=== PATIENT | female | born 1980 | race Caucasian/White ===

== ENCOUNTER 2019-04-16 15:45 | Emergency (ER) | payer MEDICARE, MEDICAID, SELFPAY ==
[2019-04-16 15:47] VITALS: BP 122/77; PULSE 75; RESP 16; TEMP 36.6; O2SAT 97; BMI 20.7
--- NOTE | 2019-04-16 16:05 | W.ED.ALLEREA ---
HPI - Allergic Reaction General: Chief complaint: Allergic Reaction Stated complaint: Allergic reaction, patient was treated at 1425 with epinephrine by EMS for an allergic reaction to exposure to animal dander. Patient was having tightness in her throat and has an extensive history of allergen to beef and pork. Patient reports her spouse just went to work on a farm and was cleaning out a barn today and was covered in dust and she went and had them when he got home and shortly after exposure she started having shortness of breath and difficulty breathing. Patient states she is feeling fine now and has no difficulty. Patient is out of epinephrine at home. Time Seen by Provider: 04/16/19 15:55 History of Present Illness: Associated symptoms: Reports hoarseness Review of Systems General: Reports: 10 or more systems reviewed and unremarkable except in HPI and below ENMT: Reports: hoarseness Card: Denies: chest pain Resp: Denies: shortness of breath Skin/Breast: Reports: rash Vic/Lymph: Denies: easy bruising PFSH ED PFSH: Statuses (acute, chronic, etc) shown below reflect problem list status as previously entered and may not be historically accurate Social History Smoking and tobacco status: former smoker Physical Exam Const: COMMON NORMALS: no apparent distress and oriented x3 HENMT: COMMON NORMALS: normocephalic HEAD & SCALP: normocephalic Eye: COMMON NORMALS: PERRL and EOMs intact bilaterally PUPIL: Yes PERRL Neck/C-Spine: COMMON NORMALS: full ROM and no lymphadenopathy Chest: COMMONS NORMALS: inspection of chest normal Resp: COMMON NORMALS: normal respiratory effort and clear to auscultation bilaterally AUSCULTATION: clear to auscultation bilaterally Cardio: COMMON NORMALS: regular rate and regular rhythm RATE: regular rate RHYTHM: regular rhythm GI: COMMON NORMALS: normal to inspection, nondistended, normoactive bowel sounds Back/Pelvis: COMMON NORMALS: thoracic and lumbar spine normal to inspection Extremity: COMMON NORMALS: normal to inspection and no pedal edema Neuro: COMMON NORMALS: oriented x3 Skin: COMMON NORMALS: skin turgor normal GENERAL SKIN EXAM: elasticity normal and turgor normal RASHES: rashes noted (anterior chest) Course Vital Signs: Vital signs: Vital Signs Temperature 97.9 F 04/16/19 15:47 Pulse Rate 75 04/16/19 15:47 Respiratory Rate 16 04/16/19 15:47 Blood Pressure 122/77 04/16/19 15:47 Pulse Oximetry 97 04/16/19 15:47 MDM - Allergic Reaction MDM Narrative: Medical decision making narrative: patient comes in today for concerns of allergic reaction. Patient was given epinephrine about an hour and a half prior to arrival to ER. Patient reported at that time she had symptoms of tightness in her throat. Since receiving the epi patient feels fine and has no further symptoms. 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 Exam notes normal respirations. Skin is warm and dry. Abdomen soft nontender. Patient does have a light rash to the anterior chest wall. Vital signs are stable. Differential diagnosis includes anaphylaxis, seasonal allergies, allergic rhinitis, anxiety. Patient returned to baseline we'll continue to monitor. Patient will be written prescription for epinephrine for home therapy as needed. Patient agreed to treatment plan and need for further evaluation and care. Discharge Plan Discharge Patient Disposition: Home, Self-Care Clinical Impression: Allergic reaction Qualifiers: Encounter type: initial encounter Qualified Code(s): T78.40XA - Allergy, unspecified, initial encounter Condition: Stable Prescriptions: New epinephrine 0.3 mg/0.3 mL auto-injector 0.3 mg IM Q20M PRN (Reason: anaphylaxis) 2 Days Qty: 2 RF: 2 Discharge Orders: Discharge Order (Routine); Ordered 04/16/19 Ordered By: Prosper De La Rosa Referrals: Jojo Eubanks DO [Primary Care Provider] - Discharge Diet: Advance as tolerated Discharge Activity: Resume usual activity Activity Restrictions/Additional Instructions: Avoid exposure to allergens Healthy diet and activity Follow-up with primary care for further treatment Return to ER as needed for difficulty breathing or new concerns Coding Level of Care Code ED Machined Parts Metal Sprayer for Kerry Kline Exam Problem Focused
--- NOTE | 2019-04-16 16:16 | ED_ITS ---
HPI - Allergic Reaction General: Chief complaint: Allergic Reaction Stated complaint: Allergic reaction, patient was treated at 1425 with epinephrine by EMS for an allergic reaction to exposure to animal dander. Patient was having tightness in her throat and has an extensive history of allergen to beef and pork. Patient reports her spouse just went to work on a farm and was cleaning out a barn today and was covered in dust and she went and had them when he got home and shortly after exposure she started having shortness of breath and difficulty breathing. Patient states she is feeling fine now and has no difficulty. Patient is out of epinephrine at home. Time Seen by Provider: 04/16/19 15:55 PFSH ED PFSH: Statuses (acute, chronic, etc) shown below reflect problem list status as previously entered and may not be historically accurate Social History Smoking and tobacco status: former smoker Course Vital Signs: Vital signs: Vital Signs Temperature 97.9 F 04/16/19 15:47 Pulse Rate 75 04/16/19 15:47 Respiratory Rate 16 04/16/19 15:47 Blood Pressure 122/77 04/16/19 15:47 Pulse Oximetry 97 04/16/19 15:47 Discharge Plan Discharge Patient Disposition: Home, Self-Care Clinical Impression: Allergic reaction Qualifiers: Encounter type: initial encounter Qualified Code(s): T78.40XA - Allergy, unspecified, initial encounter Condition: Stable Prescriptions: New epinephrine 0.3 mg/0.3 mL auto-injector 0.3 mg IM Q20M PRN (Reason: anaphylaxis) 2 Days Qty: 2 RF: 2 Discharge Orders: Discharge Order (Routine); Ordered 04/16/19 Ordered By: Prosper De La Rosa Referrals: Jojo Eubanks DO [Primary Care Provider] - Discharge Diet: Advance as tolerated Discharge Activity: Resume usual activity Activity Restrictions/Additional Instructions: Avoid exposure to allergens Healthy diet and activity Follow-up with primary care for further treatment Return to ER as needed for difficulty breathing or new concerns Coding Level of Care Code ED Networking Specialist for Kerry Kline
[2019-04-16 16:41] VITALS: BP 114/70; PULSE 72; RESP 20; O2SAT 98
== END 2019-04-16 16:34 | disposition home or self-care (01) ==
PROVIDERS: Emergency Provider Emergency Medicine; Family Provider Family Medicine; PCP Family Medicine
DX: T78.40XA Allergy, unspecified, initial encounter (principal); X58.XXXA Exposure to other specified factors, initial encounter; Z87.891 Personal history of nicotine dependence
CPT/HCPCS: 99281

== ENCOUNTER 2019-04-23 11:08 | Outpatient (CLI) | payer MEDICARE, MEDICAID, SELFPAY ==
--- NOTE | 2019-04-23 11:23 | XR_ITS ---
WS: [id number] CERVICAL SPINE TECHNIQUE: 3 views of the cervical spine CLINICAL INFORMATION: CERVICAL PAIN COMPARISON: 015 FINDINGS: Straightening of the normal cervical lordosis. Normal C1-C2 articulation. Normal dens. No acute fract ures. Normal prevertebral soft tissues. Prior partial resection of the right first rib XR/XR cervical spine 3V* 50415 IMPRESSION: 1. Straightening of the normal cervical lordosis. No acute fractures. 2. Disc space heights and vertebral body heights are well preserved. 3. Normal C1-C2 articulation.
== END 2019-04-23 11:09 | disposition home or self-care (01) ==
LOC: RAD 11:16
PROVIDERS: Family Provider Family Medicine; PCP Family Medicine; Visit Provider Registered Nurse
DX: M54.2 Cervicalgia (principal)
CPT/HCPCS: 72040

== ENCOUNTER 2019-05-21 19:42 | Emergency (ER) | payer MEDICARE, MEDICAID, SELFPAY ==
[2019-05-21 19:45] VITALS: BP 110/46; PULSE 63; RESP 16; TEMP 36.4; O2SAT 99; BMI 20.7
--- NOTE | 2019-05-21 19:53 | W.ED.ALLEREA ---
HPI - Allergic Reaction General: Chief complaint: Skin/Abscess/Foreign Body Stated complaint: MILD ALLERGIC REACTION Time Seen by Provider: 05/21/19 19:44 Source: patient and EMS Mode of arrival: EMS Limitations: no limitations History of Present Illness: HPI narrative: Patient is a 38-year-old female who presents to ED today with complaints of a possible allergic reaction. Patient reports countless allergies and states she thinks her dogs got into something and then came into the house and rubbed on her. She complains of skin itchiness. She is allergic to Benadryl. Patient believes when she has had previous reactions they have treated her successfully with Solu-Medrol. She denies difficulty breathing, tongue/throat swelling, or difficulty swallowing. MD complaint: allergic reaction Onset (ago): minute(s) Associated symptoms: Reports no associated symptoms; Deny nausea or vomiting Severity: mild Treatment prior to arrival: none Review of Systems Const: Denies: fever or chills Eyes: Denies: change in vision or blurry vision ENMT: Denies: throat pain, painful swallowing, swelling of lips/tongue or dry mouth Card: Denies: chest pain, palpitations, edema, lightheadedness, syncope or pre-syncope Resp: Denies: shortness of breath, productive cough, non-productive cough, wheezing or stridor GI: Denies: nausea or vomiting Skin/Breast: Reports: rash and itching; Denies: redness Neuro: Denies: headache PFSH ED PFSH: Statuses (acute, chronic, etc) shown below reflect problem list status as previously entered and may not be historically accurate Social History Smoking and tobacco status: former smoker Physical Exam Const: COMMON NORMALS: no apparent distress, oriented x3, no limitations and alert ORIENTATION/CONSCIOUSNESS: Yes oriented to person, Yes oriented to place and Yes oriented to time HENMT: COMMON NORMALS: normocephalic, head/scalp atraumatic, hearing grossly normal bilaterally, EAC's normal, TM's normal bilaterally, external nose normal, nasal mucous membranes and turbinates normal, moist oral mucous membranes and oropharynx normal HEAD & SCALP: normocephalic and atraumatic FACE & SINUS: normal facial exam NOSE: external nose normal and nasal mucous membranes and turbinates normal EXTERNAL AUDITORY CANAL: EAC's normal TYMPANIC MEMBRANE: TM's normal bilaterally MOUTH: oral and palatal mucosa normal and tongue normal THROAT: posterior oropharynx normal, tonsils normal and uvula midline Eye: COMMON NORMALS: PERRL and EOMs intact bilaterally PUPIL: Yes PERRL Neck/C-Spine: COMMON NORMALS: no lymphadenopathy Resp: COMMON NORMALS: normal respiratory effort and clear to auscultation bilaterally AUSCULTATION: clear to auscultation bilaterally Cardio: COMMON NORMALS: regular rate and regular rhythm RATE: regular rate RHYTHM: regular rhythm Neuro: COMMON NORMALS: oriented x3, moves all extremities, no focal motor deficits and no sensory deficits noted SENSORIUM/ORIENTATION: Yes alert, Yes oriented to person, Yes oriented to place and Yes oriented to time Skin: OTHER: Patient has chronic excoriated appearing papules to bilateral upper and lower extremities and back. I do not visualize any acute rash/hives. She is actively scratching all over in the room during my exam. Course Vital Signs: Vital signs: Vital Signs Temperature 97.5 F L 05/21/19 19:45 Pulse Rate 63 05/21/19 19:45 Respiratory Rate 16 05/21/19 19:45 Blood Pressure 110/46 05/21/19 19:45 Pulse Oximetry 99 05/21/19 19:45 MDM - Allergic Reaction MDM Narrative: Medical decision making narrative: upon re-evaluation patient is asymptomatic and feels back to her baseline Discharge Plan Discharge Patient Disposition: Home, Self-Care Clinical Impression: Allergic reaction Qualifiers: Encounter type: initial encounter Qualified Code(s): T78.40XA - Allergy, unspecified, initial encounter Condition: Stable Prescriptions: No Action epinephrine 0.3 mg/0.3 mL auto-injector 0.3 mg IM Q20M PRN (Reason: anaphylaxis) 2 Days Qty: 2 RF: 2 Discharge Orders: Discharge Order (Routine); Ordered 05/21/19 Ordered By: Yocasta Barber Referrals: Jojo Eubanks DO [Primary Care Provider] - Discharge Diet: Usual diet Discharge Activity: Increase activity as tolerated Coding Level of Care Code ED Online Project Manager for Chg Fwd Exam Problem Focused
[2019-05-21 21:09] VITALS: BP 114/68; PULSE 70; RESP 16; O2SAT 96
== END 2019-05-21 21:10 | disposition home or self-care (01) ==
PROVIDERS: Emergency Provider Physician Assistant; Family Provider Family Medicine; PCP Family Medicine
DX: T78.40XA Allergy, unspecified, initial encounter (principal); X58.XXXA Exposure to other specified factors, initial encounter; Z87.891 Personal history of nicotine dependence
CPT/HCPCS: 96374; 96375; 99282; J2930

== ENCOUNTER 2020-01-05 16:35 | Emergency (ER) | payer MEDICARE, MEDICAID, SELFPAY ==
--- NOTE | 2020-01-05 16:37 | XR_ITS ---
WS: [id number] Right foot, 01/05/2020 Clinical Data: pain Comparison: None. Findings: No fractures or dislocations are seen. No bone destruction or erosion is noted. The joint spaces and soft tissues are normal. XR/XR foot RT min 3V* [id number] Impression: Negative right foot.
[2020-01-05 16:50] VITALS: BP 127/82; PULSE 94; RESP 16; TEMP 36.4; O2SAT 97; BMI 21.1
--- NOTE | 2020-01-05 17:01 | ED_ITS ---
HPI - Extremity Problem General: Chief complaint: Extremity Injury, Lower Stated complaint: R foot injury/pain Time Seen by Provider: 01/05/20 16:41 History of Present Illness: HPI Narrative: Patient is a 39-year-old female who comes to the ED with right ankle injury. Patient said that just prior to arrival she was stepping up to get into her truck and twisted her right ankle. She says she felt a crunch. She now has pain in her right ankle and foot that is a 10 out of 10. Denies falling or having any head trauma. Associated symptoms: Deny chest pain, fever(s) or rash Review of Systems Const: Denies: fever(s), chills or fatigue Eyes: Denies: change in vision or eye discomfort ENMT: Denies: throat pain, odynophagia, nasal discharge or nasal congestion Card: Denies: chest pain, palpitations, edema, swelling of feet/ankles, dyspnea on exertion or orthopnea Resp: Denies: dyspnea, productive cough or non-productive cough GI: Denies: abdominal pain, nausea, vomiting, diarrhea, constipation or hematochezia : Denies: flank pain, dysuria or hematuria Musc: Reports: extremity pain (right foot and ankle); Denies: neck pain, back pain or extremity swelling Skin/Breast: Denies: rash or new lesions Neuro: Denies: headache(s), numbness in extremities or weakness in extremities PFSH ED PFSH: Social History Smoking and tobacco status: former smoker Alcohol intake: never Substance/Drug Use: current Substance/Drug use frequency: daily Substance/Drug use type: Marijuana Current gender identity: Female Physical Exam Const: COMMON NORMALS: no acute distress, patient oriented x3, healthy appearing and alert GENERAL APPEARANCE: cooperative and comfortable HENMT: COMMON NORMALS: normocephalic HEAD & SCALP: normocephalic MOUTH: Normal oral and palatal mucosa present THROAT: posterior oropharynx normal and uvula midline Eye: COMMON NORMALS: Equal, round and reactive pupils present PUPIL: Yes Equal, round and reactive pupils present Neck/C-Spine: COMMON NORMALS: supple GENERAL: Yes normal visual inspection Resp: COMMON NORMALS: normal respiratory effort, No retractions, No use of accessory muscles and clear to auscultation bilaterally AUSCULTATION: clear to auscultation bilaterally Cardio: COMMON NORMALS: regular rate, regular rhythm, S1 normal heart sound present, S2 normal heart sound present, No gallops present (Cardio), No clicks present (Cardio), No murmurs present (Cardio) and Peripheral pulses 2+ thro ughout RATE: regular rate RHYTHM: regular rhythm HEART SOUNDS: S1 normal heart sound present and S2 normal heart sound present PERIPHERAL PULSES: Peripheral pulses 2+ throughout GI: COMMON NORMALS: Normal to inspection, nondistended, normoactive bowel sounds present, Soft to palpation, non-tender and no masses PALPATION: Yes Soft to palpation : COMMON NORMALS: Yes no CVA tenderness BLADDER/KIDNEY EXAM: Yes no CVA tenderness Back/Pelvis: COMMON NORMALS: no CVA tenderness Extremity: COMMON NORMALS: normal to inspection NARRATIVE EXTREMITY EXAM: Patient right ankle and foot looked completely normal and had no visible deformity, edema or ecchymosis. Mild tenderness to palpation of the lateral aspect of ankle. Posterior tib pulse 2+ and cap refill normal. GENERAL: Yes normal exam except as noted Neuro: COMMON NORMALS: patient oriented x3 and moves all extremities SENSORIUM/ORIENTATION: Yes alert Skin: COMMON NORMALS: no rashes or lesions noted GENERAL SKIN EXAM: no rashes or lesions noted and dry skin Course Vital Signs: Vital signs: Vital Signs Temperature 97.6 F 01/05/20 16:50 Pulse Rate 94 01/05/20 16:50 Respiratory Rate 16 01/05/20 16:50 Blood Pressure 127/82 01/05/20 16:50 Pulse Oximetry 97 01/05/20 16:50 MDM - Extremity (Nontraumatic) MDM Narrative: Medical decision making narrative: Patient is a 39-year-old female comes to the ED with right ankle and foot pain. Patient says she twisted her right ankle and foot when stepping into her truck. Physical exam was unremarkable and patient had no edema, ecchymosis or visible deformity seen. Mild tenderness to palpation on lateral aspect of right ankle. Right foot and right ankle x-ray showed no acute fractures or findings. Patient was given crutches and told to use to help ambulate for the next couple days to allow for ankle and foot to heal., Rest ice and elevate right foot to help with symptoms. She was found with a prescription for ketorolac for pain. Return to ED precautions given. Follow-up with PCP in 7 to 10 days. Patient understood and agree with plan. Imaging Data^: Xray Ortho: Attestation: I personally reviewed and interpreted this imaging study as follows: My impression: Right ankle and right foot x-ray showed no acute fractures or findings. Discharge Plan Discharge Patient Disposition: Home Clinical Impression: Ankle sprain Qualifiers: Encounter type: initial encounter Involved ligament of ankle: anterior talofibular ligament Laterality: right Qualified Code(s): S93.491A - Sprain of other ligament of right ankle, initial encounter Condition: Stable Prescriptions: New ketorolac 10 mg tablet 10 mg PO Q6H PRN (Reason: pain) 5 Days Qty: 20 RF: 0 No Action pantoprazole 40 mg tablet,delayed release (DR/EC) 40 mg PO BID Qty: 60 RF: 6 epinephrine 0.3 mg/0.3 mL auto-injector 0.3 mg IM Q20M PRN (Reason: anaphylaxis) 2 Days Qty: 2 RF: 2 cetirizine 10 mg tablet 10 mg PO BID RF: 0 chlorzoxazone 500 mg tablet 500 mg PO QID PRN (Reason: UNKNOWN) RF: 0 tramadol 50 mg tablet 50 - 100 mg PO Q6H PRN (Reason: Pain) RF: 0 metoprolol tartrate 25 mg tablet 25 mg PO BID RF: 0 Discharge Orders: Discharge Order (Routine); Ordered 01/05/20 Ordered By: Sudhakar Frederick Referrals: Jojo Eubanks DO [Primary Care Provider] - Discharge Diet: Regular Discharge Activity: Increase activity as tolerated Patient Instructions: Ankle Sprain (ED) Activity Restrictions/Additional Instructions: Follow-up with medical provider as directed in 7-10 days. Take medications as prescribed. Use crutches to help ambulate for the next 2 to 3 days. Then increase activity and weightbearing as tolerated. Return to the ER or your medical provider if condition worsens. Please read and understand discharge instructions. If any questions, please ask. Coding Level of Care Code ED Fast Food Delivery Driver for Kerry Fwsteve Exam Comprehensive
--- NOTE | 2020-01-05 17:10 | XR_ITS ---
WS: [id number] Right ankle, 01/05/2020 Clinical Data: ankle injury Comparison: None. Findings: No fractures or dislocations are seen. The ankle mortise is normal. The talus and calcaneus are unrem arkable. No soft tissue swelling over the medial or lateral malleolus is seen. XR/XR ankle RT min 3V* [id number] Impression: Negative right ankle.
[2020-01-05] MEDS: ketorolac 60 mg/2 mL INJ IM (17:23)
[2020-01-05 17:40] VITALS: RESP 18
== END 2020-01-05 17:40 | disposition home or self-care (01) ==
PROVIDERS: Emergency Provider Physician Assistant; PCP Family Medicine
DX: S93.491A Sprain of other ligament of right ankle, initial encounter (principal); X50.1XXA Overexertion from prolonged static or awkward postures, initial encounter; Z87.891 Personal history of nicotine dependence
CPT/HCPCS: 12345; 73610; 73630; 96372; 99281; 99283; E0114; J1885

== ENCOUNTER 2020-08-16 22:24 | Emergency (ER) | payer MEDICARE, SELFPAY ==
[2020-08-16 22:29] VITALS: BP 112/65; PULSE 73; RESP 17; TEMP 36.9; O2SAT 98; BMI 20.5
--- NOTE | 2020-08-16 23:00 | ED_ITS ---
HPI - General Adult General: Chief complaint: General Medical Stated complaint: GOITER CAUSING PROBLEMS Time Seen by Provider: 08/16/20 22:55 History of Present Illness: HPI narrative: Patient is a 39-year-old female comes to the ED with neck swelling. Patient has a past medical history of alpha gal syndrome. Patient was seen by her PCP within the last couple days and some labs were checked and patient had elevated thyroid levels and a palpable enlarged thyroid on right side. PCP then is getting patient scheduled for a ultrasound of the thyroid likely tomorrow. Patient comes into the ED tonight due to increased pain around neck after she ate and choked on some berries this evening. The pain is in the right side of her neck and is going up towards her ear. She says she took some tramadol at home for pain but that did not work. Patient denies any airway obstruction. Patient says she is allergic to a lot of food and medications due to her alpha gal and says that she cannot have any contrast dye. For pain, patient says Toradol works well for her and she is not allergic to it. Associated symptoms: Deny chest pain, dyspnea, headache(s), nausea, rash, palpitations or vomiting Review of Systems Const: Denies: fever(s), chills or fatigue Eyes: Denies: change in vision or eye discomfort ENMT: Denies: throat pain, odynophagia, nasal discharge or nasal congestion Card: Denies: chest pain, palpitations, edema, swelling of feet/ankles, dyspnea on exertion or orthopnea Resp: Denies: dyspnea, productive cough or non-productive cough GI: Denies: abdominal pain, nausea, vomiting, diarrhea, constipation or hem atochezia : Denies: flank pain, dysuria or hematuria Musc: Reports: neck pain (Pain and swelling on right side of neck.); Denies: back pain or extremity swelling Skin/Breast: Denies: rash or new lesions Neuro: Denies: headache(s), numbness in extremities or weakness in extremities PFS ED PFSH: Social History Smoking and tobacco status: former smoker Alcohol intake: never Current gender identity: Female Physical Exam Const: COMMON NORMALS: no acute distress, patient oriented x3 and alert GENERAL APPEARANCE: cooperative and comfortable HENMT: COMMON NORMALS: normocephalic HEAD & SCALP: normocephalic MOUTH: Normal oral and palatal mucosa present THROAT: posterior oropharynx normal and uvula midline Neck/C-Spine: COMMON NORMALS: supple GENERAL: Yes normal visual inspection THYROID: lateral enlargement on the right nodular and tender Resp: COMMON NORMALS: normal respiratory effort, No retractions, No use of accessory muscles and clear to auscultation bilaterally AUSCULTATION: clear to auscultation bilaterally Cardio: COMMON NORMALS: regular rate, regular rhythm, S1 normal heart sound present, S2 normal heart sound present, No gallops present (Cardio), No clicks present (Cardio), No murmurs present (Cardio) and Peripheral pulses 2+ throughout RATE: regular rate RHYTHM: regular rhythm HEART SOUNDS: S1 normal heart sound present and S2 normal heart sound present PERIPHERAL PULSES: Peripheral pulses 2+ throughout GI: COMMON NORMALS: Normal to inspection, nondistended, normoactive bowel sounds present, Soft to palpation, non-tender and no masses PALPATION: Yes Soft to palpation : COMMON NORMALS: Yes no CVA tenderness BLADDER/KIDNEY EXAM: Yes no CVA tenderness Back/Pelvis: COMMON NORMALS: no CVA tenderness Extremity: COMMON NORMALS: normal to inspection Neuro: COMMON NORMALS: patient oriented x3 and moves all extremities SENSORIUM/ORIENTATION: Yes alert Skin: GENERAL SKIN EXAM: dry skin Course Vital Signs: Vital signs: Vital Signs Temperature 98.4 F 08/16/20 22:29 Pulse Rate 70 08/17/20 00:25 Respiratory Rate 17 08/17/20 00:25 Blood Pressure 110/66 08/17/20 00:25 Pulse Oximetry 98 08/17/20 00:25 MDM - General Adult MDM Narrative: Medical decision making narrative: Patient is a 39-year-old female comes to the ED with neck pain and swelling. Patient was seen by her PCP a couple days ago and her thyroid levels were high and PCP noted palpable enlarged thyroid on right side. PCP is currently setting up patient for a ultrasound of the thyroid for tomorrow. Patient comes the ED due to pain that worsened after she swallowed some food. Patient denies any airway obstruction. She appears in no acute distress. Vitals are stable. CT of the neck was or dered to evaluate neck and airway. CT of neck showed no acute findings. Patient was given a dose of Toradol while here in the ED to help with the pain and she was discharged home. Patient was told to follow-up with her PCP tomorrow for further evaluation of thyroid. Return to ED precautions given. Patient understood and agreed with plan. Imaging Data^: Other CT: Attestation: I personally reviewed and interpreted this imaging study as follows: Radiologist's impression: [facility] [address] [place] [address] CT Scan Report Signed Patient: Carmen Stevenson Unit #: [id number] : 1980 Age/Sex: 39 / F ADM Date: 08/16/20 Loc: ER Room/Bed: Attending Dr: Ordering Provider/Ordering MD: Sudhakar Frederick Date of Service: 08/16/20 Procedure(s): CT neck wo con [id number] Accession Number(s): [id number] Report Number: [id number] PROCEDURE INFORMATION: Exam: CT Neck Without Contrast Exam date and time: 08/16/2020 11:11 PM Age: 39 years old Clinical indication: Mass, lump, or swelling in neck; Patient HX: Swelling of RT side of neck. History of goiter and hyperthyroidism. TECHNIQUE: Imaging protocol: Computed tomography images of the neck without contrast. Radiation optimization: All CT scans at this facility use at least one of these dose optimization techniques: automated exposure control; mA and/or kV adjustment per patient size (includes targeted exams where dose is matched to clinical indication); or iterative reconstruction. COMPARISON: CT neck w con* [id number] 12/23/2016 8:05 AM RADIATION DOSE METRICS: Total DLP (mGy-cm): 350.8 FINDINGS: Nasopharynx: Unremarkable. Oropharynx: Unremarkable. No significant tonsillar enlargement. Hypopharynx: Unremarkable. Larynx: Unremarkable. Normal epiglottis. Retropharyngeal space: Unremarkable. Submandibular/Parotid glands: Normal. Glands are normal in size. Thyroid: No enlargement of the thyroid lobes. There may be a small low-attenuation nodule in the right lobe measuring less than 1 cm, about 6 mm in the upper pole. Lymph nodes: Unremarkable. No lymphadenopathy. Trachea: Visualized trachea is unremarkable. Lungs: Lung apices are clear. Multiple surgical clips at the apex of the right lung. Bones/joints: Unremarkable. No acute fracture. Soft tissues: Unremarkable. No significant soft tissue swelling. Multiple surgical clips in the right axilla. CT/CT neck wo con [id number] IMPRESSION: 1. No significant soft tissue inflammatory changes in the neck. 2. No focal soft tissue mass in the neck. 3. No thyroid gland enlargement. COMMENTS: Consistent with the [employer]'s Incidental Findings Committee white paper (J Am Yo Radiol 2015): In patients aged 35 years and older with an incidental thyroid nodule equal to or greater than 1.[address], MRI or extrathyroidal US, further evaluation with dedicated thyroid US is recommended for patients with normal life expectancy and without comorbidities. For smaller nodules without suspicious features, no further evaluation or follow up is recommended. Radiation Dose CTDIVOL = (mGy): DLP = 350.8 (mGy-cm) Dictated By: Andrey Hernandez Signed By: Andrey Hernandez Signed Date/Time: 08/16/202351 DD/ 50 Discharge Plan Discharge Patient Disposition: Home Clinical Impression: Anterior neck pain Condition: Stable Prescriptions: No Action pantoprazole 40 mg tablet,delayed release (DR/EC) 40 mg PO BID Qty: 60 RF: 6 epinephrine 0.3 mg/0.3 mL auto-injector 0.3 mg IM Q20M PRN (Reason: anaphylaxis) 2 Days Qty: 2 RF: 2 cetirizine 10 mg tablet 10 mg PO BID RF: 0 chlorzoxazone 500 mg tablet 500 mg PO QID PRN (Reason: UNKNOWN) RF: 0 tramadol 50 mg tablet 50 - 100 mg PO Q6H PRN (Reason: Pain) RF: 0 metoprolol tartrate 25 mg tablet 25 mg PO BID RF: 0 Discharge Orders: Discharge ED (Routine); Ordered 08/17/20 Ordered By: Sudhakar Frederick Referrals: Jojo Eubanks DO [Primary Care Provider] - Discharge Diet: Regular Discharge Activity: Resume usual activity Activity Restrictions/Additional Instructions: Follow-up with medical provider at next scheduled appointment. Continue taking all home medications as prescribed. Return to the ER or your medical provider if condition worsens. Please read and understand discharge instructions. Thank you for choosing [facility] for your healthcare needs today. Please realize this is an emergency room and that we are providing you with a medical screening exam and this may not be complete and all inclusive of all the testing and or work up that you may need to determine your ailment or severity of your illness. It is very important that you follow up as instructed or that you return to the Emergency Department should you have concerns or if your condition changes or worsens in any way. Coding Level of Care Code ED [employer] Merchand[employer] for [employer] Fwd Exam Comprehensive
--- NOTE | 2020-08-16 23:08 | CTR_ITS ---
PROCEDURE INFORMATION: Exam: CT Neck Without Contrast Exam date and time: 08/16/2020 11:11 PM Age: 39 years old Clinical indication: Mass, lump, or swelling in neck; Patient HX: Swelling of RT side of neck. History of goiter and hyperthyroidism. TECHNIQUE: Imaging protocol: Computed tomography images of the neck without contrast. Radiation optimization: All CT scans at this facility use at least one of these dose optimization techniques: automated exposure control; mA and/or kV adjustment per patient size (includes targeted exams where dose is matched to clinical indication); or iterative reconstruction. COMPARISON: CT neck w con* [id number] 12/23/2016 8:05 AM RADIATION DOSE METRICS: Total DLP (mGy-cm): 350.8 FINDINGS: Nasopharynx: Unremarkable. Oropharynx: Unremarkable. No significant tonsillar enlargement. Hypopharynx: Unremarkable. Larynx: Unremarkable. Normal epiglottis. Retropharyngeal space: Unremarkable. Submandibular/Parotid glands: Normal. Glands are normal in size. Thyroid: No enlargement of the thyroid lobes. There may be a small low-attenuation nodule in the right lobe measuring less than 1 cm, about 6 mm in the upper pole. Lymph nodes: Unremarkable. No lymphadenopathy. Trachea: Visualized trachea is unremarkable. Lungs: Lung apices are clear. Multiple surgical clips at the apex of the right lung. Bones/joints: Unremarkable. No acute fracture. Soft tissues: Unremarkable. No significant soft tissue swelling. Multiple surgical clips in the right axilla. CT/CT neck wo con [id number] IMPRESSION: 1. No significant soft tissue inflammatory changes in the neck. 2. No focal soft tissue mass in the neck. 3. No thyroid gland enlargement. COMMENTS: Consistent with the [employer]'s Incidental Findings Committee white paper (J Am Yo Radiol 2015): In patients aged 35 years and older with an incidental thyroid nodule equal to or greater than 1.[address], MRI or extrathyroidal US, further evaluation with dedicated thyroid US is recommended for patients with normal life expectancy and without comorbidities. For smaller nodules without suspicious features, no further evaluation or follow up is recommended. Radiation Dose CTDIVOL = (mGy): DLP = 350.8 (mGy-cm)
[2020-08-17] MEDS: ketorolac 60 mg/2 mL INJ IM (00:02)
[2020-08-17 00:25] VITALS: BP 110/66; PULSE 70; RESP 17; O2SAT 98
== END 2020-08-17 00:20 | disposition home or self-care (01) ==
PROVIDERS: Emergency Provider Physician Assistant; PCP Family Medicine
DX: M54.2 Cervicalgia (principal); Z87.891 Personal history of nicotine dependence
CPT/HCPCS: 70490; 96372; 99283; J1885

== ENCOUNTER 2020-08-22 12:09 | Outpatient (CLI) | payer MEDICARE, SELFPAY ==
--- NOTE | 2020-08-22 12:27 | US_ITS ---
WS: [id number] THYROID ULTRASOUND HISTORY: THYROID ANTIBODIES POSITIVE/JEFF'S THYROIDITIS COMPARISON: None available. Right lobe: 1.5 cm x 1.4 cm x 4.1 cm (w x ap x l). Volume: 4.5 cm3. Normal size gland with mild coarsened echotexture increased vascularity. Left lobe: 1.3 cm x 0.7 cm x 2.9 cm (w x ap x l). Volume: 1.4 cm3. Normal size gland with mildly coarsened echotexture. Mild increased vascularity. Isthmus: 0.2 cm. US/US thyroid [id number] IMPRESSION: 1. No thyroid nodules. 2. Mild increased vascularity suggest Graves' disease.
== END 2020-08-22 12:10 | disposition home or self-care (01) ==
LOC: RAD 12:17
PROVIDERS: PCP Family Medicine; Visit Provider Registered Nurse
DX: R76.8 Other specified abnormal immunological findings in serum (principal); E06.3 Autoimmune thyroiditis; R13.10 Dysphagia, unspecified; E05.00 Thyrotoxicosis with diffuse goiter without thyrotoxic crisis or storm
CPT/HCPCS: 76536

== ENCOUNTER 2020-09-08 08:08 | Emergency (ER) | payer MEDICARE, SELFPAY ==
--- NOTE | 2020-09-08 08:10 | ECG_ITS ---
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 Measurements Intervals [place] Rate: 99 P: 72 ND: 129 QRS: 83 QRSD: 80 T: 33 QT: 312 QTc: 401 Interpretive Statements SINUS RHYTHM WITH SINUS ARRHYTHMIA NONSPECIFIC ST & T-WAVE ABNORMALITY Compared to ECG 01/23/2019 20:51:19 T-wave abnormality now present Electronically Signed On 09-09-2020 9:48:20 CDT by Oksana Baird M.D. [id number] f
--- NOTE | 2020-09-08 08:10 | XR_ITS ---
WS: [id number] Exam: XR chest 1V portable [id number] Date/Time of Exam: 09/08/2020 8:10 AM Reason For Exam: chest pain Comparison 12/03/2018. Lungs are clear and fully inflated. Normal cardiomediastinal structures and bony elements. Partial ex cision of the right first rib. XR/XR chest 1V portable [id number] IMPRESSION: 1. No acute cardiopulmonary finding. No change.
[2020-09-08 08:28] VITALS: BP 126/96; PULSE 94; RESP 18; TEMP 37; O2SAT 93; BMI 21.7
--- NOTE | 2020-09-08 08:44 | CT_ITS ---
WS: [id number] CT HEAD NONCONTRAST HISTORY: dizzy, visual changes TECHNIQUE: Contiguous axial imaging performed through the brain in 2.5 mm imaging. Bone and soft tiss ue windows. Sagittal and coronal reformats reviewed. All CT scans at [facility] use at le ast one of these dose optimization techniques: automated exposure control; mA and/or kV adjustment pe r patient size (includes targeted exams where dose is matched to clinical indication); or iterative r econstruction. DLP: 708.63 mGy.cm COMPARISON: 11/25/2012 No acute intracranial hemorrhage, midline shift or mass effect. No atrophy or prior infarcts or herniation. Ventricles: Normal size with no hydrocephalus. Paranasal sinuses: As visualized are clear. Mastoid air cells: Well pneumatized. Calvarium and scalp: Skull is intact with no soft tissue edema or swelling. CT/CT head wo con* [id number] IMPRESSION: Negative head CT.
--- NOTE | 2020-09-08 08:44 | W.ED.GENADLT ---
HPI - General Adult General: Chief complaint: Arrhythmia/Palpitations Stated complaint: chest pain Time Seen by Provider: 09/08/20 08:10 Source: patient Mode of arrival: ambulatory Limitations: no limitations History of Present Illness: HPI narrative: Patient is a 39-year-old female who presents to ED today with multiple various complaints. Patient tells me she has has been diagnosed with alpha gal and mast cell causing her to be allergic to 95% of all foods and allergens . 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 She states my condition is fatal, the medication used to treat it is fatal, and surgery is fatal-I am stuck . She states she is trying to find an automatic trimming sewer to perform some certain test to tell her if she could safely take the thyroid medication but has been unsuccessful. She has been having a pinch in my chest over the past 3 months. During that same time. She has been complaining of my vision going in and out . She reports her blood pressure has been fluctuating handy high and then bottoms out . When asked to clarify she tells me BP will be elevated at 130/90s and then when she rechecks a few hours later it will be 90s/60s. She states her PCP has decreased her metoprolol. She has no pain currently. She does state this morning she felt tremulous but this has went away. Patient had a thyroid US performed earlier this month: US/ thyroid 87290 IMPRESSION: 1. No thyroid nodules. 2. Mild increased vascularity suggest Graves' disease. Associated symptoms: Reports chest pain ( pinch in my chest ) and palpitations; Deny confusion, dyspnea, headache(s), malaise, nausea, rash, syncope or vomiting Review of Systems Const: Reports: change in weight (reports weight loss secondary to not being able to eat anything); Denies: fever(s), chills, body aches, fatigue or malaise Eyes: Reports: change in vision and blurry vision; Denies: photophobia, eye discomfort, eye discharge, floaters or seeing flashes ENMT: Denies: throat pain, odynophagia, nasal discharge or nasal congestion Card: Reports: chest pain ( pinch in my chest ) and palpitations; Denies: irregular heart rhythm, edema, swelling of feet/ankles, lightheadedness, syncope, pre-syncope, dyspnea on exertion, orthopnea, leg pain with exertion or acrocyanosis Resp: Denies: dyspnea, productive cough, non-productive cough, pain on inspiration, hemoptysis or chest congestion GI: Denies: abdominal pain, nausea, vomiting, heartburn or diarrhea : Denies: flank pain or dysuria Musc: Denies: neck pain, back pain or joint pain Skin/Breast: Denies: rash Neuro: Denies: headache(s), numbness in extremities, weakness in extremities, sensory changes, lack of coordination, difficulty walking, frequent falls, dizziness, confusion, behavioral changes, Slurred speech present or difficulty communicating thoughts PFSH ED PFSH: Social History Smoking and tobacco status: former smoker Alcohol intake: never Current gender identity: Female Physical Exam Const: COMMON NORMALS: no acute distress, average body habitus, patient oriented x3, no limitations, healthy appearing, alert and well nourished GENERAL APPEARANCE: cooperative ORIENTATION/CONSCIOUSNESS: Yes awake, Yes oriented to person, Yes oriented to place and Yes oriented to time HENMT: COMMON NORMALS: normocephalic and atraumatic HEAD & SCALP: normocephalic and atraumatic Eye: COMMON NORMALS: Equal, round and reactive pupils present, EOMs intact bilaterally, conjunctivae normal and no scleral icterus GENERAL EYE: appearance normal, both eyes and all related structures and normal light reflex VISUAL ACUITY: Yes acuity normal VISUAL WATTERS: No peripheral vision loss CONJUNCTIVA: Yes conjunctivae normal PUPIL: Yes Equal, round and reactive pupils present DIRECT OPHTHALMOSCOPY: Yes normal light reflex Neck/C-Spine: COMMON NORMALS: full ROM, no lymphadenopathy and no meningeal signs Resp: COMMON NORMALS: normal respiratory effort and clear to auscultation bilaterally AUSCULTATION: clear to auscultation bilaterally Cardio: COMMON NORMALS: regular rate and regular rhythm RATE: regular rate RHYTHM: regular rhythm GI: COMMON NORMALS: Normal to inspection, nondistended, normoactive bowel sounds present, Soft to palpation, non-tender, No hepatosplenomegaly present and no masses PALPATION: Yes Soft to palpation and Yes No hepatosplenomegaly present Extremity: COMMON NORMALS: normal to inspection Neuro: ALIA COMA SCALE: document GCS findings [place] coma scale eye opening: Spontaneous [place] coma scale verbal response: Orientated [place] coma scale motor response: Obey commands Alia coma scale total score: 15 COMMON NORMALS: patient oriented x3, CN's II-XII intact bilaterally, moves all extremities, no focal motor deficits, no sensory deficits noted and gait normal SENSORIUM/ORIENTATION: Yes alert, Yes oriented to person, Yes oriented to place and Yes oriented to time MENINGEAL SIGNS: Yes no meningeal signs Skin: COMMON NORMALS: no rashes or lesions noted GENERAL SKIN EXAM: no rashes or lesions noted TRAUMA: no lacerations or abrasions Course Vital Signs: Vital signs: Vital Signs Temperature 98.6 F 09/08/20 08:28 Pulse Rate 76 09/08/20 10:52 Respiratory Rate 18 09/08/20 10:52 Blood Pressure 98/78 09/08/20 10:52 Pulse Oximetry 97 09/08/20 10:52 MDM - General Adult MDM Narrative: Medical decision making narrative: Patient's labs/work-up including TSH and free T4 are normal. Head CT obtained secondary to visual disturbance complaints. This was negative. CXR and EKG are normal. Recommend she follow-up with PCP in regards to her thyroid/BP issues. Also discussed possibly obtaining referral to endocrinology. Lab Data: Labs: Lab Results 09/08/20 09/08/20 09/08/20 Range/Units 09:31 09:31 09:31 WBC 3.2 L (4.0-10.0) 10^3/ uL RBC 4.62 (4.1-5.3) 10^6/u L Hgb 15.0 (11.5-15.3) g/dL Hct 43.8 (37.0-47.0) % MCV 94.8 (81-99) fL MCH 32.5 (28.0-34.0) pg MCHC 34.2 (30.0-36.0) g/dL RDW 12.1 (12.1-15.1) % Plt Count 154 (130-400) 10^3/c mm MPV 12.1 H (7.4-10.4) fL Neut % (Auto) 57.0 % Lymph % (Auto) 35.4 % Iron % (Auto) 5.7 % Eos % (Auto) 1.3 % Baso % (Auto) 0.3 % Neut # (Auto) 1.80 (1.8-7.7) 10^3/u L Lymph # (Auto) 1.1 (0.8-4.8) 10^3/u L Iron # (Auto) 0.2 (0.2-0.9) 10^3/u L Eos # (Auto) 0.0 (0.0-0.8) 10^3/u L Baso # (Auto) 0.0 (0.0-0.1) 10^3/u L Nucleated RBC % (a uto) 0 % Nucleated RBCs # 0.0 /100WBC Sodium Cancelled Potassium Cancelled Chloride Cancelled Carbon Dioxide Cancelled Anion Gap Cancelled BUN Cancelled Creatinine Cancelled GFR Calculation Cancelled Glucose Cancelled Calculated Osmolal ity Cancelled Calcium Cancelled Total Bilirubin Cancelled AST Cancelled ALT Cancelled Alkaline Phosphata se Cancelled Troponin T Baselin e Cancelled Total Protein Cancelled Albumin Cancelled Globulin Cancelled TSH Cancelled Free T4 Cancelled 09/08/20 09/08/20 Range/Units 10:05 10:05 WBC (4.0-10.0) 10^3/ uL RBC (4.1-5.3) 10^6/u L Hgb (11.5-15.3) g/dL Hct (37.0-47.0) % MCV (81-99) fL MCH (28.0-34.0) pg MCHC (30.0-36.0) g/dL RDW (12.1-15.1) % Plt Count (130-400) 10^3/c mm MPV (7.4-10.4) fL Neut % (Auto) % Lymph % (Auto) % Iron % (Auto) % Eos % (Auto) % Baso % (Auto) % Neut # (Auto) (1.8-7.7) 10^3/u L Lymph # (Auto) (0.8-4.8) 10^3/u L Iron # (Auto) (0.2-0.9) 10^3/u L Eos # (Auto) (0.0-0.8) 10^3/u L Baso # (Auto) (0.0-0.1) 10^3/u L Nucleated RBC % (a uto) % Nucleated RBCs # /100WBC Sodium 141 Potassium 4.5 Chloride 106 Carbon Dioxide 27 Anion Gap 12.5 BUN 14 Creatinine 0.8 GFR Calculation 79.4 L Glucose 96 Calculated Osmolal ity 292 Calcium 8.8 Total Bilirubin 0.4 AST 17 ALT 28 Alkaline Phosphata se 83 Troponin T Baselin e 6 Total Protein 6.4 L Albumin 4.4 Globulin 2.0 TSH 1.56 Free T4 1.26 Imaging Data^: CT Head: Radiologist's impression: [address] [id number] Scan ReportSigned Patient: Carmen Stevenson #: [id number]: [id number]#:[id number]/Sex: 39 / FADM Date: 09/08/20Loc: ERRoom/Bed:Attending Dr: Ordering Provider/Ordering MD: Yocasta Barber Date of Service: 09/08/20 Procedure(s): CT head wo con* [id number] Accession Number(s): [id number] Report Number: [id number] WS: [id number] CT HEAD NONCONTRAST HISTORY: dizzy, visual changes TECHNIQUE: Contiguous axial imaging performed through the brain in 2.5 mm imaging. Bone and soft tissue windows. Sagittal and coronal reformats reviewed. All CT scans at [facility] use at least one of these dose optimization techniques: automated exposure control; mA and/or kV adjustment per patient size (includes targeted exams where dose is matched to clinical indication); or iterative reconstruction. DLP: 708.63 mGy.cm COMPARISON: 11/25/2012 No acute intracranial hemorrhage, midline shift or mass effect. No atrophy or prior infarcts or herniation. Ventricles: Normal size with no hydrocephalus. Paranasal sinuses: As visualized are clear. Mastoid air cells: Well pneumatized. Calvarium and scalp: Skull is intact with no soft tissue edema or swelling. CT/CT head wo con* [id number] IMPRESSION: Negative head CT. Dictated By:Jen Snow DOSigned By:Jen Snow DOSigned Date/Time:09/08/20 0950DD/ 0948 CXR: Radiologist's impression: [address] [address] XRay Report Signed Patient: Carmen Stevenson Unit #: [id number] : 1980 Age/Sex: 39 / F ADM Date: 09/08/20 Loc: ER Room/Bed: Attending Dr: Ordering Provider/Ordering MD: Yocasta Barber Date of Service: 09/08/20 Procedure(s): XR chest 1V portable [id number] Accession Number(s): [id number] Report Number: [id number] WS: [id number] Exam: XR chest 1V portable [id number] Date/Time of Exam: 09/08/2020 8:10 AM Reason For Exam: chest pain Comparison 12/03/2018. Lungs are clear and fully inflated. Normal cardiomediastinal structures and bony elements. Partial excision of the right first rib. XR/XR chest 1V portable [id number] IMPRESSION: 1. No acute cardiopulmonary finding. No change. Dictated By: Eros Gavin DO Signed By: Eros Gavin DO Signed Date/Time: 09/08/20825 DD/ 4 EKG Data^: EKG 1: EKG interpretation date: 09/08/20 EKG interpretation time: 08:21 Interpretation: Sinus rhythm with sinus arrhythmia Rate [address] elevation or depression changes noted Computer generated interpretation: Chest X-Ray 09/08/20 08:10 IMPRESSION: 1. No acute cardiopulmonary finding. No change. Head CT 09/08/20 08:44 IMPRESSION: Negative head CT. Discharge Plan Discharge Patient Disposition: Home Clinical Impression: Non-cardiac chest pain Condition: Stable Prescriptions: No Action pantoprazole 40 mg tablet,delayed release (DR/EC) 40 mg PO BID Qty: 60 RF: 6 epinephrine 0.3 mg/0.3 mL auto-injector 0.3 mg IM Q20M PRN (Reason: anaphylaxis) 2 Days Qty: 2 RF: 2 cetirizine 10 mg tablet 10 mg PO TID RF: 0 chlorzoxazone 500 mg tablet 500 mg PO QID PRN (Reason: Muscle Spasm) RF: 0 tramadol 50 mg tablet 50 - 100 mg PO Q6H PRN (Reason: Pain) RF: 0 metoprolol tartrate 25 mg tablet 25 mg PO DAILY RF: 0 Discharge Orders: Discharge ED (Routine); Ordered 09/08/20 Ordered By: Yocasta Barber Referrals: Jojo Eubanks DO [Primary Care Provider] - Activity Restrictions/Additional Instructions: As we discussed please follow up with your primary care provider next week for re-evaluation. Coding Level of Care Code ED Split Leather Mosser for Breannag Fwd Exam Comprehensive
[2020-09-08 09:35] VITALS: BP 129/99; PULSE 79; RESP 16; O2SAT 100
[2020-09-08 09:48] LABS: Basophils % 0.3 %; Eosinophils % 1.3 %; Hematocrit 43.8 % (37.0-47.0); Lymphocytes # 1.1 10^3/uL (0.8-4.8); Lymphocytes % 35.4 %; Mean Corpuscular HGB Conc 34.2 g/dL (30.0-36.0); Mean Corpuscular Hemoglobin 32.5 pg (28.0-34.0); Mean Corpuscular Volume 94.8 fL (81-99); Mean Platelet Volume 12.1 fL (7.4-10.4); Monocytes # 0.2 10^3/uL (0.2-0.9); Monocytes % 5.7 %; Nucleated Red Blood Cells % 0 %; Platelet Count 154 10^3/cmm (130-400); Red Blood Count 4.62 10^6/uL (4.1-5.3); Red Cell Distribution Width 12.1 % (12.1-15.1); White Blood Count 3.2 10^3/uL (4.0-10.0)
[2020-09-08 10:43] LABS: Alanine Aminotransferase 28 U/L (0-33); Albumin Level 4.4 g/dL (3.5-5.2); Alkaline Phosphatase 83 IU/L (35-105); Anion Gap 12.5 (5-19); Aspartate Amino Transferase 17 U/L (0-32); Blood Urea Nitrogen 14 mg/dL (6-20); Calcium 8.8 mg/dL (8.5-10.5); Carbon Dioxide 27 mmol/L (22-29); Chloride 106 mmol/L (98-107); Free T4 Free Thyroxine 1.26 ng/dL (0.82-1.77); Glomerular Filtration Rate 79.4 mL/min (90-130); Glucose 96 mg/dL (65-115); Osmolality Calculated 292 mOsm/kg (285-295); Potassium 4.5 mmol/L (3.5-5.1); Sodium 141 mmol/L (136-145); Thyroid Stimulating Hormone 1.56 uIU/mL (0.27-4.20); Total Bilirubin 0.4 mg/dL (0.15-1.2); Total Protein 6.4 g/dL (6.6-8.7); Troponin(5th) Baseline 6 ng/L (0-10)
[2020-09-08 10:52] VITALS: BP 98/78; PULSE 76; RESP 18; O2SAT 97
== END 2020-09-08 11:27 | disposition home or self-care (01) ==
PROVIDERS: Emergency Provider Physician Assistant; PCP Family Medicine
DX: R07.89 Other chest pain (principal); Z87.891 Personal history of nicotine dependence; E06.3 Autoimmune thyroiditis
CPT/HCPCS: 36415; 70450; 71045; 80053; 84439; 84443; 84484; 85025; 93005; 99283

== ENCOUNTER → 2021-04-10 14:30 | Outpatient (BNVA) | payer MEDICARE, SELFPAY | PROVIDERS: PCP Family Medicine Adult Medicine; Visit Provider Family Medicine Adult Medicine | DX: Z91.018 Allergy to other foods (principal) | CPT/HCPCS: 86003 ==

== ENCOUNTER 2021-06-13 11:34 | Outpatient (CLI) | payer MEDICARE, MEDICAID, SELFPAY ==
--- NOTE | 2021-06-13 11:53 | XR_ITS ---
WS: [id number] Left shoulder, 3 views, 06/13/2021 Clinical Data: Left shoulder pain Comparison: None. Findings: No new fractures or dislocations are seen. There is an old fracture of the proximal third of the left clavicle. The AC joint is normal. The adjacent left scapula and ribs are normal. The soft tissues a re unremarkable. There is been partial resection of the right first rib. XR/XR shoulder LT min 2V* [id number] Impression: 1. Negative left shoulder. 2. Healed fracture of proximal third of left clavicle. 3. Partial resection of right first rib.
--- NOTE | 2021-06-13 11:53 | XR_ITS ---
WS: [id number] Left clavicle, 2 views, 06/13/2021 Clinical Data: clavicle pain Comparison: None. Findings: No new fractures or dislocations are seen. There is an old fracture of the proximal third of the left clavicle. The AC joint is normal. The soft tissues are unremarkable. There is partial resection of the right first rib. XR/[place] [id number] Impression: Old fracture proximal left clavicle.
== END 2021-06-13 11:35 | disposition home or self-care (01) ==
LOC: RAD 11:45
PROVIDERS: PCP Family Medicine Adult Medicine; Visit Provider Family Medicine Adult Medicine
DX: M25.512 Pain in left shoulder (principal)
CPT/HCPCS: 73000; 73030

== ENCOUNTER → 2021-08-29 11:21 | Outpatient (BNVA) | payer MEDICARE, MEDICAID, SELFPAY | PROVIDERS: PCP Family Medicine Adult Medicine; Visit Provider Family Medicine Adult Medicine | DX: I10 Essential (primary) hypertension (principal); R14.0 Abdominal distension (gaseous); E06.3 Autoimmune thyroiditis | CPT/HCPCS: 80053; 82306; 83690 ==

== ENCOUNTER → 2021-09-06 14:17 | Outpatient (BNVA) | payer MEDICAID, SELFPAY | PROVIDERS: PCP Family Medicine Adult Medicine; Visit Provider Counselor Mental Health | DX: F43.12 Post-traumatic stress disorder, chronic (principal) | CPT/HCPCS: 90832 ==

== ENCOUNTER → 2021-10-10 11:16 | Outpatient (BNVA) | payer OTHER, MEDICARE, MEDICAID, SELFPAY | PROVIDERS: PCP Family Medicine Adult Medicine; Visit Provider Family Medicine Adult Medicine | DX: E06.3 Autoimmune thyroiditis (principal); Z90.721 Acquired absence of ovaries, unilateral; I10 Essential (primary) hypertension | CPT/HCPCS: 80053; 82672; 84443 ==

== ENCOUNTER 2021-12-29 21:13 | Emergency (ER) | payer MEDICARE, MEDICAID, SELFPAY ==
[2021-12-29 21:16] VITALS: BP 144/74; PULSE 98; RESP 16; TEMP 36.4; O2SAT 99
--- NOTE | 2021-12-29 22:13 | W.ED.ALLEREA ---
HPI - Allergic Reaction General: Chief complaint: Allergic Reaction Stated complaint: allergic reaction to food Time Seen by Provider: 12/29/21 22:13 History of Present Illness: HPI narrative: 41-year-old female comes in today for concerns of itching and rash started after eating eggplant. Patient appears nontoxic. Respirations are even. No significant rashes noted at this time. Review of Systems Const: Denies: fever(s) Skin/Breast: Reports: rash and pruritus PFSH ED PFSH: Medical History Abdominal bloating Abdominal discomfort, generalized Acute sinusitis with symptoms > 10 days Allergic rhinitis due to allergen Anxiety and depression Asthma CKD (chronic kidney disease) stage 2, GFR 60-89 ml/min COPD (chronic obstructive pulmonary disease) Dyslexia, developmental Fibromyalgia Head trauma HTN (hypertension) Hx of Lyme disease Hx of [place] spotted fever Psychiatric care PTSD (post-traumatic stress disorder) Surgical History H/O unilateral oophorectomy History of sinus surgery No pertinent past surgical history Social History Smoking and tobacco status: former smoker Alcohol intake: never Current gender identity: Female Physical Exam Const: COMMON NORMALS: alert HENMT: COMMON NORMALS: normocephalic HEAD & SCALP: normocephalic Neck/C-Spine: COMMON NORMALS: full ROM Resp: COMMON NORMALS: normal respiratory effort and clear to auscultation bilaterally AUSCULTATION: clear to auscultation bilaterally Cardio: COMMON NORMALS: regular rate and regular rhythm RATE: regular rate RHYTHM: regular rhythm Extremity: COMMON NORMALS: normal to inspection Neuro: SENSORIUM/ORIENTATION: Yes alert Skin: RASHES: rashes noted (Light red linear striations from scratching) Course Vital Signs: Vital signs: Vital Signs Temperature 97.6 F 12/29/21 21:16 Pulse Rate 98 12/29/21 21:16 Respiratory Rate 16 12/29/21 21:16 Blood Pressure 144/74 12/29/21 21:16 Pulse Oximetry 99 12/29/21 21:16 Oxygen Delivery Me thod 12/29/21 21:16 MDM - Allergic Reaction Medical Decision Making 41-year-old female comes in today for complaints of reaction to egg plant. On exam lungs are clear to auscultation. Skin is warm and dry. Vital signs are normal. No signs of severe distress is noted. Differential diagnosis includes allergic reaction, anaphylaxis, malingering. We will treat with some steroid Depo-Medrol 80 mg for allergic reaction. Patient had improvement of symptoms since arriving to the ER. Recommended continuing routine home care and follow-up as needed. Patient reported understanding agreed to plan. Discharge Plan Discharge Patient Disposition: Home Clinical Impression: Allergic reaction Qualifiers: Encounter type: initial encounter Qualified Code(s): T78.40XA - Allergy, unspecified, initial encounter Condition: Stable Prescriptions: No Action chlorzoxazone 500 mg tablet 500 mg PO QID PRN (Reason: Muscle Spasm) Qty: 120 5RF epinephrine 0.3 mg/0.3 mL auto-injector 0.3 mg IM Q20M PRN (Reason: anaphylaxis) Qty: 3 3RF Rx Instructions: until response tramadol 50 mg tablet 50 mg PO Q6H 30 Days Qty: 120 3RF Rx Instructions: Refill on or after 30 day intervals metoprolol tartrate 25 mg tablet 25 mg PO DAILY Qty: 90 1RF pantoprazole 40 mg tablet,delayed release (DR/EC) 40 mg PO BID Qty: 180 1RF cetirizine 10 mg tablet 10 mg PO TID Qty: 90 5RF Discharge Orders: Discharge ED (Routine); Ordered 12/29/21 Ordered By: Prosper De La Rosa Referrals: Haider Charlton MD [Primary Care Provider] - Discharge Diet: Usual diet Discharge Activity: Increase activity as tolerated Patient Instructions: Food Allergy (ED) Activity Restrictions/Additional Instructions: Continue with routine care. Drink plenty of water and fluids. Follow-up with primary care for further instruction. Return to ER for new concerns. Coding Level of Care Code ED Casting Inspector for Kerry Kline
[2021-12-29] MEDS: methylPREDNISolone (DEPO) 80 MG/ML INJ 1 mL IM (22:33)
== END 2021-12-29 22:42 | disposition home or self-care (01) ==
PROVIDERS: Emergency Provider Nurse Practitioner Family; PCP Family Medicine Adult Medicine
DX: T78.1XXA Other adverse food reactions, not elsewhere classified, initial encounter (principal); R21 Rash and other nonspecific skin eruption
CPT/HCPCS: 96372; 99284; J1040

== ENCOUNTER 2022-04-12 22:10 | Emergency (ER) | payer MEDICARE, MEDICAID, SELFPAY ==
[2022-04-12 22:24] VITALS: BP 145/83; PULSE 107; RESP 18; TEMP 37.1; O2SAT 98; BMI 23.6
== END 2022-04-13 00:30 | disposition left against medical advice (07) ==
PROVIDERS: Emergency Provider Family Medicine; PCP Family Medicine Adult Medicine
DX: Z53.21 Procedure and treatment not carried out due to patient leaving prior to being seen by health care provider (principal)

== ENCOUNTER 2022-08-28 19:10 | Emergency (ER) | payer MEDICARE, MEDICAID, SELFPAY ==
[2022-08-28 19:19] VITALS: BP 132/89; PULSE 104; RESP 17; TEMP 36.4; O2SAT 99; BMI 25.6
[2022-08-28 20:27] VITALS: BP 164/103; PULSE 95; RESP 18; TEMP 36.9; O2SAT 97
--- NOTE | 2022-08-28 22:47 | W.ED.ALLEREA ---
HPI - Allergic Reaction General: Chief complaint: Allergic Reaction Stated complaint: allergic rxn Time Seen by Provider: 08/28/22 22:43 Source: patient Mode of arrival: ambulatory Limitations: no limitations History of Present Illness: HPI narrative: 41-year-old female is very well-known to the ER she has a history of alpha gal said multiple allergic reaction in the past. States she drink some sweet tea today believe she is having a reaction from it states she developed a headache along with a rash to her face and trunk she denies any difficulty breathing denies any worsening proving factors. Rates her headache a 4 out of 10. No change in vision. Associated symptoms: Deny abdominal pain, nausea or vomiting Review of Systems Const: Denies: fever(s), chills or body aches Eyes: Denies: blurry vision or eye discomfort ENMT: Denies: throat pain or dental pain Card: Denies: chest pain Resp: Denies: dyspnea GI: Denies: abdominal pain, nausea, vomiting or diarrhea : Denies: dysuria Musc: Denies: neck pain or back pain Skin/Breast: Reports: rash Neuro: Reports: headache(s) PFSH ED PFSH: Medical History Allergic rhinitis due to allergen Anxiety and depression Asthma CKD (chronic kidney disease) stage 2, GFR 60-89 ml/min COPD (chronic obstructive pulmonary disease) Dyslexia, developmental Fibromyalgia Head trauma HTN (hypertension) Hx of Lyme disease Hx of [place] spotted fever Psychiatric care PTSD (post-traumatic stress disorder) Surgical History H/O unilateral oophorectomy History of sinus surgery No pertinent past surgical history Social History Smoking and tobacco status: former smoker Alcohol intake: never Substance/Drug Use: current Substance/Drug use frequency: daily Current gender identity: Female Physical Exam Const: COMMON NORMALS: no acute distress, patient oriented x3 and healthy appearing HENMT: COMMON NORMALS: normocephalic and atraumatic HEAD & SCALP: normocephalic and atraumatic Eye: COMMON NORMALS: conjunctivae normal CONJUNCTIVA: Yes conjunctivae normal Neck/C-Spine: COMMON NORMALS: full ROM and supple Chest: COMMONS NORMALS: normal inspection of the chest and normal palpation of entire chest wall Resp: COMMON NORMALS: normal respiratory effort, No retractions, No use of accessory muscles and clear to auscultation bilaterally AUSCULTATION: clear to auscultation bilaterally Cardio: COMMON NORMALS: regular rate, regular rhythm and No murmurs present (Cardio) RATE: regular rate RHYTHM: regular rhythm GI: COMMON NORMALS: Normal to inspection, nondistended, normoactive bowel sounds present, Soft to palpation, non-tender and no masses PALPATION: Yes Soft to palpation Extremity: COMMON NORMALS: normal to inspection and full ROM Neuro: COMMON NORMALS: patient oriented x3, moves all extremities and no focal motor deficits Psych: COMMON NORMALS: mental status grossly normal, Normal thought process present and cooperative THOUGHT PROCESS: Normal thought process present Skin: COMMON NORMALS: no wounds NARRATIVE SKIN EXAM: rash to face and trunk Course Vital Signs: Vital signs: Vital Signs Temperature 98.5 F 08/28/22 20:27 Pulse Rate 84 08/28/22 23:00 Respiratory Rate 14 08/28/22 23:00 Blood Pressure 144/94 08/28/22 23:00 Pulse Oximetry 98 08/28/22 23:00 Oxygen Delivery Me thod Room Air 08/28/22 20:27 MDM - Allergic Reaction Medical Decision Making Patient presents with allergic reaction she has no signs of anaphylaxis she also has a headache she gets these chronically she has no signs of meningitis subarachnoid hemorrhage she feels improved here she is stable for discharge she is to follow-up with PCP and return if worsening. Medical Records I reviewed the patient's medical records. Discharge Plan Discharge Patient Disposition: Home Clinical Impression: Allergic reaction, Headache Condition: Stable Prescriptions: No Action cetirizine 10 mg tablet 10 mg PO TID Qty: 90 3RF chlorzoxazone 500 mg tablet See Rx Instructions .ROUTE .COMPLEX Qty: 360 1RF Dose Instruction: TAKE 1 TABLET BY MOUTH FOUR TIMES DAILY NEEDED FOR MUSCLE SPASM Rx Instructions: TAKE 1 TABLET BY MOUTH FOUR TIMES DAILY NEEDED FOR MUSCLE SPASM epinephrine 0.3 mg/0.3 mL auto-injector 0.3 mg IM Q20M PRN (Reason: anaphylaxis) Qty: 3 3RF Rx Instructions: until response metoprolol tartrate 25 mg tablet 25 mg PO DAILY Qty: 90 1RF pantoprazole 40 mg tablet,delayed release (DR/EC) 40 mg PO BID Qty: 180 1RF tramadol 50 mg tablet 50 mg PO Q6H 30 Days Qty: 120 3RF Rx Instructions: Refill on or after 30 day intervals Discharge Orders: Discharge ED (Routine); Ordered 08/28/22 Ordered By: Lynne Hurtado Referrals: Haider Charlton MD [Primary Care Provider] - 1-3 days Discharge Diet: Advance as tolerated Discharge Activity: Resume usual activity Patient Instructions: General Allergic Reaction (ED), General Headache (ED) Coding Level of Care Code ED Seamless Tube Mill Operator for Kerry Kline
[2022-08-28 23:00] VITALS: BP 144/94; PULSE 84; RESP 14; O2SAT 98
[2022-08-28] MEDS: ketorolac 30 mg/mL INJ 15 MG IVP (23:05)
[2022-08-28] MEDS: dexamethasone 4 mg/mL INJ 8 MG IVP (23:09)
[2022-08-28 23:57] VITALS: BP 123/74; PULSE 74; RESP 16; O2SAT 92
== END 2022-08-28 23:58 | disposition home or self-care (01) ==
PROVIDERS: Emergency Provider Emergency Medicine; PCP Family Medicine Adult Medicine
DX: T78.40XA Allergy, unspecified, initial encounter (principal); R51.9 Headache, unspecified
CPT/HCPCS: 96374; 96375; 99284; J1100; J1885

== ENCOUNTER 2022-08-31 10:30 | Emergency (ER) | payer MEDICARE, MEDICAID, SELFPAY ==
[2022-08-31 10:32] VITALS: BP 139/90; PULSE 88; RESP 17; TEMP 36.8; O2SAT 100; BMI 25.6
--- NOTE | 2022-08-31 10:40 | W.ED.ALLEREA ---
HPI - Allergic Reaction General: Chief complaint: Allergic Reaction Stated complaint: BLURRY VISION Time Seen by Provider: 08/31/22 10:31 Source: patient and EMS Mode of arrival: EMS Limitations: no limitations History of Present Illness: HPI narrative: 41-year-old female who is history of multiple allergic reactions with alpha gal states she is allergic to yellow dye took tramadol that had yellow dye in it and started having nausea blurry vision and extreme anxiety. States her blurred vision has improved she does appear anxious here has had some nausea she states this is like her previous reactions. Associated symptoms: Reports nausea and vomiting; Deny abdominal pain Review of Systems Const: Denies: fever(s), chills or body aches ENMT: Denies: throat pain or dental pain Card: Denies: chest pain Resp: Denies: dyspnea GI: Reports: nausea and vomiting; Denies: abdominal pain or diarrhea : Denies: dysuria Musc: Denies: neck pain or back pain Skin/Breast: Denies: rash Neuro: Denies: headache(s) PFSH ED PFSH: Medical History Allergic rhinitis due to allergen Anxiety and depression Asthma CKD (chronic kidney disease) stage 2, GFR 60-89 ml/min COPD (chronic obstructive pulmonary disease) Dyslexia, developmental Fibromyalgia Head trauma HTN (hypertension) Hx of Lyme disease Hx of [place] spotted fever Psychiatric care PTSD (post-traumatic stress disorder) Surgical History H/O unilateral oophorectomy History of sinus surgery No pertinent past surgical history Social History Smoking and tobacco status: former smoker Alcohol intake: never Substance/Drug Use: current Substance/Drug use frequency: daily Current gender identity: Female Physical Exam Const: COMMON NORMALS: no acute distress, patient oriented x3 and healthy appearing GENERAL APPEARANCE: anxious HENMT: COMMON NORMALS: normocephalic and atraumatic HEAD & SCALP: normocephalic and atraumatic Neck/C-Spine: COMMON NORMALS: full ROM and supple Chest: COMMONS NORMALS: normal inspection of the chest and normal palpation of entire chest wall Resp: COMMON NORMALS: normal respiratory effort, No retractions, No use of accessory muscles and clear to auscultation bilaterally AUSCULTATION: clear to auscultation bilaterally Cardio: COMMON NORMALS: regular rate, regular rhythm and No murmurs present (Cardio) RATE: regular rate RHYTHM: regular rhythm GI: COMMON NORMALS: Normal to inspection, nondistended, normoactive bowel sounds present, Soft to palpation, non-tender and no masses PALPATION: Yes Soft to palpation Extremity: COMMON NORMALS: normal to inspection and full ROM Neuro: COMMON NORMALS: patient oriented x3, moves all extremities and no focal motor deficits Psych: COMMON NORMALS: mental status grossly normal, Normal thought process present and cooperative THOUGHT PROCESS: Normal thought process present Skin: COMMON NORMALS: no rashes or lesions noted and no wounds GENERAL SKIN EXAM: no rashes or lesions noted Course Vital Signs: Vital signs: Vital Signs Temperature 98.2 F 08/31/22 10:32 Pulse Rate 88 08/31/22 10:32 Respiratory Rate 17 08/31/22 10:32 Blood Pressure 139/90 08/31/22 10:32 Pulse Oximetry 100 08/31/22 10:32 Oxygen Delivery Me thod Room Air 08/31/22 10:32 MDM - Allergic Reaction Medical Decision Making Patient presents here with an allergic reaction she has a long history of allergic reactions she is well-appearing here in no distress feels improved after steroids she is stable for discharge she is to follow-up with PCP and return if worsening. Differential Diagnosis Likely allergic reaction and adverse reaction to drug; Unlikely anaphylaxis Discharge Plan Discharge Patient Disposition: Home Clinical Impression: Allergic reaction Condition: Stable Prescriptions: No Action cetirizine 10 mg tablet 10 mg PO TID Qty: 90 3RF chlorzoxazone 500 mg tablet See Rx Instructions .ROUTE .COMPLEX Qty: 360 1RF Dose Instruction: TAKE 1 TABLET BY MOUTH FOUR TIMES DAILY NEEDED FOR MUSCLE SPASM Rx Instructions: TAKE 1 TABLET BY MOUTH FOUR TIMES DAILY NEEDED FOR MUSCLE SPASM epinephrine 0.3 mg/0.3 mL auto-injector 0.3 mg IM Q20M PRN (Reason: anaphylaxis) Qty: 3 3RF Rx Instructions: until response metoprolol tartrate 25 mg tablet 25 mg PO DAILY Qty: 90 1RF pantoprazole 40 mg tablet,delayed release (DR/EC) 40 mg PO BID Qty: 180 1RF tramadol 50 mg tablet 50 mg PO Q6H 30 Days Qty: 120 3RF Rx Instructions: Refill on or after 30 day intervals Discharge Orders: Discharge ED (Routine); Ordered 08/31/22 Ordered By: Lynne Hurtado Referrals: Haider Charlton MD [Primary Care Provider] - 1-3 days Discharge Diet: Advance as tolerated Discharge Activity: Resume usual activity Patient Instructions: General Allergic Reaction (ED) Coding Level of Care Code ED Radiation Technician for Kerry Kline
[2022-08-31] MEDS: dexamethasone 10 mg/mL INJ IVP (10:46)
[2022-08-31 11:34] VITALS: BP 128/81; PULSE 76; RESP 17; O2SAT 98
== END 2022-08-31 11:36 | disposition home or self-care (01) ==
PROVIDERS: Emergency Provider Emergency Medicine; PCP Family Medicine Adult Medicine
DX: R11.0 Nausea (principal); T78.40XA Allergy, unspecified, initial encounter; X58.XXXA Exposure to other specified factors, initial encounter
CPT/HCPCS: 96374; 96375; 99284; J1100

== ENCOUNTER 2022-11-06 04:11 | Emergency (ER) | payer MEDICARE, MEDICAID, SELFPAY ==
[2022-11-06 04:18] VITALS: BP 105/79; PULSE 105; RESP 16; TEMP 36.8; O2SAT 94; BMI 26.6
--- NOTE | 2022-11-06 04:18 | ED_ITS ---
HPI - Headache General: Chief Complaint: Headache Stated Complaint: Headache Time Seen by Provider: 11/06/22 04:12 Source: patient Mode of arrival: ambulatory Limitations: no limitations History of Present Illness: 41-year-old female who states she had a headache since yesterday she had a history of migraine headache states this began gradually and is worsened headaches now an 8 out of 10 had some nausea denies any vomiting denies any worsening improving factors headache is not sudden in nature not the worst headache of her life. Associated symptoms: Deny chest pain, fever(s), nausea, rash or vomiting Review of Systems Const: Denies: fever(s), chills, body aches or change in appetite Eyes: Denies: blurry vision or eye discomfort ENMT: Denies: throat pain or dental pain Card: Denies: chest pain Resp: Denies: dyspnea GI: Denies: abdominal pain, nausea, vomiting or diarrhea Musc: Denies: neck pain or back pain Skin/Breast: Denies: rash Neuro: Reports: headache(s) PFSH ED PFSH: Medical History Allergic rhinitis due to allergen Anxiety and depression Asthma CKD (chronic kidney disease) stage 2, GFR 60-89 ml/min COPD (chronic obstructive pulmonary disease) Dyslexia, developmental Fibromyalgia Head trauma HTN (hypertension) Hx of Lyme disease Hx of [place] spotted fever Psychiatric care PTSD (post-traumatic stress disorder) Surgical History H/O unilateral oophorectomy History of sinus surgery No pertinent past surgical history Social History Smoking and tobacco status: former smoker Alcohol intake: never Substance/Drug Use: current Substance/Drug use frequency: daily Current gender identity: Female Physical Exam Const: COMMON NORMALS: no acute distress, patient oriented x3 and healthy appearing HENMT: COMMON NORMALS: normocephalic and atraumatic HEAD & SCALP: norm ocephalic and atraumatic Eye: COMMON NORMALS: conjunctivae normal CONJUNCTIVA: Yes conjunctivae normal Neck/C-Spine: COMMON NORMALS: full ROM and supple Chest: COMMONS NORMALS: normal inspection of the chest Resp: COMMON NORMALS: normal respiratory effort and No use of accessory muscles Cardio: COMMON NORMALS: regular rate, regular rhythm and No murmurs present (Cardio) RATE: regular rate RHYTHM: regular rhythm GI: INSPECTION: Yes normal to inspection Extremity: COMMON NORMALS: normal to inspection and full ROM Neuro: COMMON NORMALS: patient oriented x3, moves all extremities and no focal motor deficits Psych: COMMON NORMALS: mental status grossly normal, Normal thought process present and cooperative THOUGHT PROCESS: Normal thought process present Skin: COMMON NORMALS: no rashes or lesions noted and no wounds GENERAL SKIN EXAM: no rashes or lesions noted Course Vital Signs: Vital signs: Vital Signs Temperature 98.3 F 11/06/22 04:18 Pulse Rate 98 11/06/22 04:28 Respiratory Rate 18 11/06/22 04:30 Blood Pressure 125/73 11/06/22 04:28 Pulse Oximetry 94 11/06/22 04:30 Oxygen Delivery Me thod Room Air 11/06/22 04:28 MDM - Headache Medical Decision Making Patient presents with a headache she feels much improved after meds no signs subarachnoid hemorrhage or meningitis patient is stable for discharge she is follow-up PCP and return if worsening. Medical Records I reviewed the patient's medical records. Lab Data I reviewed the patient's lab results. Discharge Plan Discharge Patient Disposition: Home Clinical Impression: Headache Condition: Stable Prescriptions: No Action cetirizine 10 mg tablet 10 mg PO TID Qty: 90 3RF chlorzoxazone 500 mg tablet See Rx Instructions .ROUTE .COMPLEX Qty: 360 1RF Dose Instruction: TAKE 1 TABLET BY MOUTH FOUR TIMES DAILY NEEDED FOR MUSCLE SPASM Rx Instructions: TAKE 1 TABLET BY MOUTH FOUR TIMES DAILY NEEDED FOR MUSCLE SPASM metoprolol tartrate 25 mg tablet 25 mg PO DAILY Qty: 90 1RF pantoprazole 40 mg tablet,delayed release (DR/EC) 40 mg PO BID Qty: 180 1RF tramadol 50 mg tablet 50 mg PO Q6H 30 Days Qty: 120 3RF Rx Instructions: Refill on or after 30 day intervals epinephrine 0.3 mg/0.3 mL auto-injector 0.3 mg IM Q20M PRN (Reason: anaphylaxis) Qty: 3 3RF Rx Instructions: until response Discharge Orders: Discharge ED (Routine); Ordered 11/06/22 Ordered By: Lynne Hurtado Referrals: Haider Charlton MD [Primary Care Provider] - 1-3 days Discharge Diet: Advance as tolerated Discharge Activity: Resume usual activity Patient Instructions: General Headache (ED) Coding Level of Care Code ED Family And Consumer Science Professor for Kerry Kline
[2022-11-06] MEDS: ketorolac 60 mg/2 mL INJ IM (04:23)
[2022-11-06 04:28] VITALS: BP 125/73; PULSE 98; O2SAT 92
[2022-11-06 04:30] VITALS: RESP 18; O2SAT 94
[2022-11-06] MEDS: morphine 4 mg/mL SDV 1 mL IM (04:30)
[2022-11-06 05:06] VITALS: BP 115/67; PULSE 82; RESP 18; O2SAT 96
== END 2022-11-06 05:06 | disposition home or self-care (01) ==
PROVIDERS: Emergency Provider Emergency Medicine; PCP Family Medicine Adult Medicine
DX: R51.9 Headache, unspecified (principal); I12.9 Hypertensive chronic kidney disease with stage 1 through stage 4 chronic kidney disease, or unspecified chronic kidney disease; N18.2 Chronic kidney disease, stage 2 (mild); J44.9 Chronic obstructive pulmonary disease, unspecified; Z79.899 Other long term (current) drug therapy; Z87.891 Personal history of nicotine dependence
CPT/HCPCS: 96372; 99284; J1885; J2270

== ENCOUNTER → 2023-01-24 09:07 | Outpatient (BNVA) | payer MEDICARE, MEDICAID, SELFPAY | PROVIDERS: PCP Family Medicine Adult Medicine; Visit Provider Family Medicine Adult Medicine | DX: E06.3 Autoimmune thyroiditis (principal); N18.2 Chronic kidney disease, stage 2 (mild); I12.9 Hypertensive chronic kidney disease with stage 1 through stage 4 chronic kidney disease, or unspecified chronic kidney disease | CPT/HCPCS: 80053; 80061; 84443 ==

== ENCOUNTER 2023-08-22 10:14 | Outpatient (CLI) | payer MEDICARE, MEDICAID, SELFPAY ==
--- NOTE | 2023-08-22 10:30 | USCV_ITS ---
Carmen Stevenson Age: 42 Gender: F : 1980 Exam Date: 08/22/2023 10:24 Ordering Phys: Haider Charlton MD Technologist: MATT Exam Location: [facility] [place] Indication: RUE PAIN AND SWELLING HISTORY: Upper extremity swelling. Upper extremity pain. PROCEDURES: Venous duplex imaging was performed in only the right upper extremity. The following venous structures were evaluated: internal jugular vein, subclavian vein, axillary vein, and brachial veins. In addition, the basilic vein, cephalic vein, radial vein, and ulnar vein. Serial compression, augmentation maneuvers, and spectral Doppler flow evaluation were performed. FINDINGS: The veins of the right upper extremity are readily compressible with normal venous flow dynamics including spontaneous flow, respiratory phasic variation and augmentation. No evidence of deep vein thrombosis or superficial thrombophlebitis in the right upper extremity. CONCLUSIONS No right upper extremity DVT. Limited quality due to technique. Dr. Jen Snow DO (Electronically Signed) Final Date: 22 Aug 2023 12:01 S
== END 2023-08-22 10:15 | disposition home or self-care (01) ==
LOC: RAD 10:15
PROVIDERS: PCP Family Medicine Adult Medicine; Visit Provider Family Medicine Adult Medicine
DX: I80.9 Phlebitis and thrombophlebitis of unspecified site (principal); M79.601 Pain in right arm; M79.89 Other specified soft tissue disorders
CPT/HCPCS: 93971

== ENCOUNTER 2024-01-23 16:05 | Emergency (ER) | payer MEDICARE, MEDICAID, SELFPAY ==
[2024-01-23 16:21] VITALS: BP 121/70; PULSE 86; RESP 18; TEMP 36.8; O2SAT 98; BMI 27.3
--- NOTE | 2024-01-23 16:26 | ECG_ITS ---
[facility] Test Date: 2024-01-23 Pat Name: Carmen Stevenson Department: Room: Gender: Female Coordinator Integrated Marketing: : 1980 Requested By: Roger Murcia Order Number: [id number] Terrance MD: Sy Broussard M.D. Measurements Intervals [place] Rate: 93 P: 62 CT: 130 QRS: 73 QRSD: 85 T: 42 QT: 343 QTc: 428 Interpretive Statements SINUS RHYTHM NONSPECIFIC ST & T-WAVE ABNORMALITY Compared to ECG 09/08/2020 08:21:31 Sinus arrhythmia no longer present T-wave abnormality still present Electronically Signed On 01-26-2024 14:18:36 CDT by Sy Broussard M.D. [email or web address]
--- NOTE | 2024-01-23 17:55 | XRR_ITS ---
PROCEDURE INFORMATION: Exam: XR Chest Exam date and time: 01/23/2024 6:16 PM Age: 43 years old Clinical indication: Shortness of breath; Prior surgery; Surgery date: 6+ months; Patient HX: Chest pain after being stung multiple times by wasps; SOB; HX RT 1st rib removal due to hematoma TECHNIQUE: Imaging protocol: Radiologic exam of the chest. Views: 1 view. COMPARISON: CR XR chest 1V portable [id number] 09/08/2020 8:10 AM FINDINGS: Lungs: No pulmonary consolidation. Pleural spaces: No pleural effusion or pneumothorax. Heart/Mediastinum: The cardiomediastinal silhouette is within normal limits. Bones/joints: No acute osseous abnormalities are seen. Surgical absence of the right 1st rib. Chronic left proximal clavicular fracture. XR/XR chest 1V portable [id number] IMPRESSION: No acute cardiopulmonary disease.
--- NOTE | 2024-01-23 18:19 | W.ED.ALLEREA ---
HPI - Allergic Reaction General: Chief complaint: Allergic Reaction Stated complaint: swarmed by yellow jacket Time Seen by Provider: 01/23/24 17:17 Source: patient Mode of arrival: ambulatory Limitations: no limitations History of Present Illness: HPI narrative: Patient is a 43-year-old female presenting to the emergency department planing of allergic reaction prior to arrival. She states she was lifting soil out of her garden, she uprooted a yellow jackets nest and has multiple stings. Reports history of alpha gal as well as other multiple allergies, states she is having some chest tightness and shortness of breath at this time as well as diffuse burning and itching. She does state that her tightness and shortness of breath have since improved, she did not take her EpiPen. She is not reporting any other symptoms. Vital stable on arrival, O2 saturation 98%. Appearing in no acute respiratory distress. MD complaint: allergic reaction Onset (ago): minute(s) Exposure: insect bite Known history of allergy to: Multiple Associated symptoms: Deny abdominal pain, nausea or vomiting Treatment prior to arrival: none Related Data Previous Rx's Medication Instructions Recorded doxycycline hyclate 100 mg capsule 100 mg PO BID #14 caps 07/25/23 prednisone 20 mg tablet 20 mg PO DAILY #5 tabs 07/25/23 metoprolol tartrate 25 mg tablet 25 mg PO DAILY #90 tabs 09/04/23 pantoprazole 40 mg tablet,delayed 40 mg PO BID #180 tabs 09/04/23 release chlorzoxazone 500 mg tablet See Rx Instructions .Route 09/23/23 .COMPLEX #360 tabs epinephrine 0.3 mg/0.3 mL 0.3 mg (0.3 mL) IM Q20M PRN 12/02/23 injection, auto-injector anaphylaxis #3 ea cetirizine 10 mg tablet 10 mg PO DAILY Allergies #90 tabs 01/19/24 tramadol 50 mg tablet 50 mg PO Q8H pain, moderate 30 01/22/24 days #90 tabs Allergies Allergy/AdvReac Type Severity Reaction Status Date / Time nicolette Allergy Intermediate ALGY-Swell Verified 01/23/24 16:34 Lip/Tongue/Throat pineapple Allergy Intermediate ALGY-Rash Verified 01/23/24 16:34 squash Allergy Mild ALGY-Rash Verified 01/23/24 16:34 nut - unspecified Allergy Unknown Unknown Verified 01/23/24 16:34 acetaminophen Allergy Unknown Verified 01/23/24 16:34 Alpha-Gal Allergy Unknown Verified 01/23/24 16:35 ([id number],3-Gala diphenhydramine Allergy ALGY-Anaphy Verified 01/23/24 16:34 [From Benadryl] laxis eggs Allergy ALGY-Anaphy Uncoded 01/23/24 16:34 laxis flu vaccine Allergy Unknown Uncoded 01/23/24 16:34 mammal products Allergy Unknown Uncoded 01/23/24 16:34 mass cell Allergy Unknown Uncoded 01/23/24 16:35 red meats Allergy Unknown Uncoded 01/23/24 16:34 Review of Systems General: Reports: 10 or more systems reviewed and unremarkable except in HPI and below Const: Denies: fever(s) or chills Card: Reports: chest pain (Tightness) Resp: Reports: dyspnea; Denies: productive cough or wheezing GI: Denies: abdominal pain, nausea, vomiting or diarrhea Musc: Denies: extremity pain or joint pain Skin/Breast: Reports: pruritus, skin pain (Burning) and new lesions (Multiple insect stings); Denies: rash or skin tenderness Neuro: Denies: headache(s) PFSH ED PFSH: Medical History Pain and swelling of right upper extremity Phlebitis and thrombophlebitis Allergy to alpha-gal CKD (chronic kidney disease) stage 2, GFR 60-89 ml/min Allergic rhinitis due to allergen Hx of [place] spotted fever Hx of Lyme disease Anxiety and depression PTSD (post-traumatic stress disorder) COPD (chronic obstructive pulmonary disease) Dyslexia, developmental Head trauma HTN (hypertension) Fibromyalgia Asthma Surgical History H/O unilateral oophorectomy History of sinus surgery No pertinent past surgical history Social History Smoking and tobacco/nicotine status: former use of tobacco/nicotine Alcohol intake: never Substance/Drug Use: current Substance/Drug use frequency: daily Current gender identity: Female Physical Exam Const: COMMON NORMALS: no acute distress, average body habitus, patient oriented x3, no limitations, healthy appearing, alert and well nourished OTHER: Appearing in no acute respiratory distress HENMT: COMMON NORMALS: normocephalic and atraumatic HEAD & SCALP: normocephalic and atraumatic Neck/C-Spine: COMMON NORMALS: full ROM, no lymphadenopathy, supple and no meningeal signs Resp: COMMON NORMALS: normal respiratory effort, No use of accessory muscles and clear to auscultation bilaterally EFFORT & INSPECTION: Yes able to speak in complete sentences AUSCULTATION: clear to auscultation bilaterally Cardio: COMMON NORMALS: regular rate, regular rhythm, S1 normal heart sound present, S2 normal heart sound present, No gallops present (Cardio), No clicks present (Cardio), No murmurs present (Cardio) and No rub (Cardio) RATE: regular rate RHYTHM: regular rhythm HEART SOUNDS: S1 normal heart sound present and S2 normal heart sound present Extremity: COMMON NORMALS: full ROM and capillary refill normal Neuro: COMMON NORMALS: patient oriented x3, moves all extremities, no focal motor deficits and no sensory deficits noted SENSORIUM/ORIENTATION: Yes alert MENINGEAL SIGNS: Yes no meningeal signs Skin: COMMON NORMALS: no wounds and turgor normal NARRATIVE SKIN EXAM: Multiple areas of circumferential erythema consistent with recent stings. Primarily to her abdomen, chest, and back GENERAL SKIN EXAM: turgor normal Course Vital Signs: Vital signs: Vital Signs Temperature 98.2 F 01/23/24 16:21 Pulse Rate 86 01/23/24 16:21 Respiratory Rate 18 01/23/24 16:21 Blood Pressure 121/70 01/23/24 16:21 Pulse Oximetry 98 01/23/24 16:21 Oxygen Delivery Me thod Room Air 01/23/24 16:21 MDM - Allergic Reaction Medical Decision Making Patient reporting stoma multiple yellow jackets, history of multiple allergies as well as alpha gal. She did arrive complaining of itching and burning as well as improving chest tightness and shortness of breath. Chest x-ray obtained did not demonstrate any acute findings and patient was given prednisone, shortly after stated she was ready to leave as she essentially felt asymptomatic. Return precautions given. Lab Data Radiology Impressions Chest X-Ray 01/23/24 17:55 IMPRESSION: No acute cardiopulmonary disease. All radiology interpretation(s) finalized by discharge Discharge Plan Discharge Patient Disposition: Home Clinical Impression: Accidental insect sting Allergic reaction Qualifiers: Encounter type: initial encounter Qualified Code(s): T78.40XA - Allergy, unspecified, initial encounter Condition: Stable Prescriptions: No Action prednisone 20 mg tablet 20 mg PO DAILY Qty: 5 0RF doxycycline hyclate 100 mg capsule 100 mg PO BID Qty: 14 0RF metoprolol tartrate 25 mg tablet 25 mg PO DAILY Qty: 90 3RF pantoprazole 40 mg tablet,delayed release (DR/EC) 40 mg PO BID Qty: 180 3RF chlorzoxazone 500 mg tablet See Rx Instructions .ROUTE .COMPLEX Qty: 360 3RF Dose Instruction: TAKE 1 TABLET BY MOUTH FOUR TIMES DAILY NEEDED FOR MUSCLE SPASM Rx Instructions: TAKE 1 TABLET BY MOUTH FOUR TIMES DAILY NEEDED FOR MUSCLE SPASM epinephrine 0.3 mg/0.3 mL auto-injector 0.3 mg IM Q20M PRN (Reason: anaphylaxis) Qty: 3 3RF Rx Instructions: until response cetirizine 10 mg tablet 10 mg PO DAILY Qty: 90 3RF tramadol 50 mg tablet 50 mg PO Q8H 30 Days Qty: 90 3RF Rx Instructions: Refill on or after 30 day intervals Discharge Orders: Discharge ED (Routine); Ordered 01/23/24 Ordered By: Roger Shea Referrals: Haider Charlton MD [Primary Care Provider] - Patient Instructions: Allergic Reaction Activity Restrictions/Additional Instructions: Monitor for any new or worsening symptoms and return for reevaluation as discussed. Follow-up with primary care. Coding Level of Care Code ED Lithographic Platemaker for Kerry Kline
[2024-01-23] MEDS: predniSONE 20 mg Tablet 60 MG PO (18:25)
== END 2024-01-23 19:50 | disposition home or self-care (01) ==
PROVIDERS: Emergency Provider Physician Assistant; PCP Family Medicine Adult Medicine
DX: T63.481A Toxic effect of venom of other arthropod, accidental (unintentional), initial encounter (principal); X58.XXXA Exposure to other specified factors, initial encounter; I12.9 Hypertensive chronic kidney disease with stage 1 through stage 4 chronic kidney disease, or unspecified chronic kidney disease; N18.2 Chronic kidney disease, stage 2 (mild); J44.9 Chronic obstructive pulmonary disease, unspecified; Z87.891 Personal history of nicotine dependence
CPT/HCPCS: 71045; 93005; 99284; J7512

== ENCOUNTER 2024-03-05 14:09 | Outpatient (CLI) | payer MEDICARE, SELFPAY ==
[2024-03-05 14:54] LABS: Basophils % 0.3 %; Eosinophils % 0.6 %; Hematocrit 41.6 % (36-47); Lymphocytes # 1.9 10^3/uL (0.8-4.8); Mean Corpuscular HGB Conc 34.4 g/dL (30-55); Mean Corpuscular Hemoglobin 31.5 pg (27-33); Mean Corpuscular Volume 91.6 fl (85-98); Mean Platelet Volume 10.2 fL (7.4-10.4); Monocytes # 0.4 10^3/uL (0.2-0.9); Monocytes % 5.5 %; Neutrophils # 4.13 10^3/uL (1.8-7.7); Neutrophils % 64.4 %; Nucleated Red Blood Cells % 0 %; Platelet Count 199 10^3/cmm (157-399); Red Blood Count 4.54 10^6/uL (3.85-5.65); Red Cell Distribution Width 12.9 % (12.1-15.1); White Blood Count 6.41 10^3/uL (3.29-11.43)
[2024-03-05 15:19] LABS: Alanine Aminotransferase 21 U/L (0-33); Albumin Level 4.5 g/dL (3.5-5.2); Alkaline Phosphatase 87 U/L (35-105); Aspartate Amino Transferase 16 U/L (0-32); Blood Urea Nitrogen 5 mg/dL (6-20); Calcium 9.3 mg/dL (8.5-10.5); Carbon Dioxide 25 mmol/L (22-29); Chloride 106 mmol/L (98-107); Free T4 Free Thyroxine 1.15 ng/dL (0.82-1.77); Globulin 2.9 g/dL (1.3-4.6); Glomerular Filtration Rate 60.2 mL/min (90-130); Glucose 101 mg/dL (65-115); Osmolality Calculated 293 mOsm/kg (285-295); Sodium 143 mmol/L (136-145); Thyroid Stimulating Hormone 3.12 uIU/mL (0.27-4.20); Total Bilirubin 0.5 mg/dL (0.15-1.2); Total Protein 7.4 g/dL (6.6-8.7)
[2024-03-09 16:18] LABS: Beef (27) IgE 0.75 kU/L; Beef Class 2; Lamb (F88) IgE 0.44 kU/L; Lamb Class 1; Pork (F26) IgE 0.28 kU/L; Pork Class 0/1
== END 2024-03-05 14:10 | disposition home or self-care (01) ==
LOC: LAB 14:13
PROVIDERS: PCP Family Medicine; Visit Provider Family Medicine
DX: M79.7 Fibromyalgia (principal); Z91.018 Allergy to other foods; R00.2 Palpitations; E06.3 Autoimmune thyroiditis; N18.2 Chronic kidney disease, stage 2 (mild)
CPT/HCPCS: 36415; 80053; 84439; 84443; 85025; 86003; 86008

== ENCOUNTER 2024-06-15 19:47 | Emergency (ER) | payer MEDICARE, SELFPAY ==
[2024-06-15 19:50] VITALS: BP 127/96; PULSE 105; RESP 18; TEMP 36.7; O2SAT 99; BMI 26.4
--- NOTE | 2024-06-15 19:58 | ED_ITS ---
HPI - Allergic Reaction General: Chief complaint: Allergic Reaction Stated complaint: allergic reaction Time Seen by Provider: 06/15/24 19:48 Source: patient Mode of arrival: ambulatory Limitations: no limitations History of Present Illness: HPI narrative: 43-year-old female is very well-known to the ER has a history alcohol has been seen with allergic reactions multiple times states she has eaten a turkey sausage now she is feeling hot feels like she cannot breathe. No rash noted pulse ox is normal she does appear anxious as well. Denies pain anywhere Associated symptoms: Deny abdominal pain, nausea or vomiting Related Data Previous Rx's ?Medication ?Instructions ?Recorded prednisone 20 mg tablet 20 mg PO DAILY #5 tabs 07/24 pantoprazole 40 mg tablet,delayed 40 mg PO BID #180 ta bs 09/04/23 release chlorzoxazone 500 mg tablet See Rx Instructions .Route 09/23/23 .COMPLEX #360 tabs cetirizine 10 mg tablet 10 mg PO DAILY Allergies #90 tabs 01/19/24 metoprolol tartrate 25 mg tablet 25 mg PO DAILY #90 ta bs 02/19/24 epinephrine 0.3 mg/0.3 mL 0.3 mg (0.3 mL) IM Q20M PRN 06/09/24 injection, auto-injector anaphylaxis #3 ea tramadol 50 mg tablet 50 mg PO Q8H pain, moderate 30 06/09/24 days #90 tabs Allergies Allergy/AdvReac Type Severity Reaction Status Date / Time nicolette Allergy Intermediate ALGY-Swell Verified 06/15/24 19:55 Lip/Tongue/Throat pineapple Allergy Intermediate ALGY-Rash Verified 06/15/24 19:55 squash Allergy Mild ALGY-Rash Verified 06/15/24 19:55 nut - unspecified Allergy Unknown Unknown Verified 06/15/24 19:55 acetaminophen Allergy Unknown Verified 06/15/24 19:55 Alpha-Gal Allergy Unknown Verified 06/15/24 19:55 (Blcpdvarp-Wghjp-9,3-Gala diphenhydramine (From Allergy ALGY-Anaphy Verified 06/15/24 19:55 Benadryl) laxis egg Allergy ALGY-Anaphy Verified 06/15/24 19:55 laxis Influenza Virus Vaccines Allergy Unknown Verified 06/15/24 19:55 Review of Systems Const: Denies: fever(s), chills, body aches or change in appetite ENMT: Denies: throat pain or dental pain Card: Denies: chest pain Resp: Reports: dyspnea GI: Denies: abdominal pain, nausea, vomiting or diarrhea Musc: Denies: neck pain or back pain Skin/Breast: Denies: rash Neuro: Denies: headache(s) PFSH ED PFSH: Medical History Nicotine dependence, cigarettes, in remission quit 2007 Encounter for chronic pain management Pain management contract signed 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 Palpitations takes metoprolol Pain and swelling of right upper extremity Phlebitis and thrombophlebitis Allergy to alpha-gal CKD (chronic kidney disease) stage 2, GFR 60-89 ml/min Allergic rhinitis due to allergen Hx of [place] spotted fever Hx of Lyme disease Anxiety and depression PTSD (post-traumatic stress disorder) COPD (chronic obstructive pulmonary disease) Dyslexia, developmental Head trauma HTN (hypertension) Fibromyalgia has been on tramadol for decades Asthma Surgical History History of surgical procedure on mouth infected tooth that resulted in complications Hx of lipoma large one from back of neck removed Hx of nephrolithotomy with removal of calculi 3 times; Hx of hernia repair R upper abdominal surgical hernia repair Hx of esophagogastroduodenoscopy multiple Hx of colonoscopy multiple--has had 6 so far Hx of appendectomy Hx of cholecystectomy Hx of pelvic surgery age 16--8hrs of surgery; PID--tubes, uterine tubes/bladder Hx of hysterectomy with oophorectomy Has left ovary in place; was removed for benign reasons Hx of resection of rib R 1st rib for thoracic outlet Family History Mother Thyroid disease Social History Smoking and tobacco/nicotine status: former use of tobacco/nicotine Quit status (tobacco/nicotine): has quit using Year quit tobacco: 2007 Alcohol intake: never Substance/Drug Use: current Substance/Drug use frequency: daily Marital status: Number of children: 0 Highest education level completed: 9th Grade Current occupational status: disabled 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, 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, 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, [employer] Current gender identity: Female Physical Exam Const: COMMON NORMALS: no acute distress, patient oriented x3 and healthy appearing HENMT: COMMON NORMALS: normocephalic and atraumatic HEAD & SCALP: normocephalic and atraumatic Eye: COMMON NORMALS: conjunctivae normal CONJUNCTIVA: Yes conjunctivae normal Neck/C-Spine: COMMON NORMALS: full ROM and supple Chest: COMMONS NORMALS: normal inspection of the chest Resp: COMMON NORMALS: normal respiratory effort, No retractions, No use of accessory muscles and clear to auscultation bilaterally AUSCULTATION: clear to auscultation bilaterally Cardio: COMMON NORMALS: regular rate, regular rhythm and No murmurs present (Cardio) RATE: regular rate RHYTHM: regular rhythm GI: COMMON NORMALS: Normal to inspection, nondistended, normoactive bowel sounds present, Soft to palpation, non-tender and no masses PALPATION: Yes Soft to palpation Extremity: COMMON NORMALS: normal to inspection and full ROM Neuro: COMMON NORMALS: patient oriented x3, moves all extremities and no focal motor deficits Psych: COMMON NORMALS: mental status grossly normal, Normal thought process present and cooperative THOUGHT PROCESS: Normal thought process present Skin: COMMON NORMALS: no rashes or lesions noted and no wounds GENERAL SKIN EXAM: no rashes or lesions noted Course Vital Signs: Vital signs: Vital Signs Temperature 98.1 F 06/15/24 19:50 Pulse Rate 68 06/15/24 20:57 Respiratory Rate 16 06/15/24 20:57 Blood Pressure 102/56 06/15/24 20:57 Pulse Oximetry 94 06/15/24 20:57 Oxygen Delivery Me thod Room Air 06/15/24 20:57 MDM - Allergic Reaction Medical Decision Making Patient presents here after an allergic reaction she is much improved here she stable for discharge follow-up with PCP return if worsening. Medical Records I reviewed the patient's medical records. No radiology studies performed this visit Discharge Plan Discharge Patient Disposition: Home Clinical Impression: Allergic reaction Condition: Stable Prescriptions: No Action prednisone 20 mg tablet 20 mg PO DAILY Qty: 5 0RF pantoprazole 40 mg tablet,delayed release (DR/EC) 40 mg PO BID Qty: 180 3RF chlorzoxazone 500 mg tablet See Rx Instructions .ROUTE .COMPLEX Qty: 360 3RF Dose Instruction: TAKE 1 TABLET BY MOUTH FOUR TIMES DAILY NEEDED FOR MUSCLE SPASM Rx Instructions: TAKE 1 TABLET BY MOUTH FOUR TIMES DAILY NEEDED FOR MUSCLE SPASM cetirizine 10 mg tablet 10 mg PO DAILY Qty: 90 3RF metoprolol tartrate 25 mg tablet 25 mg PO DAILY Qty: 90 3RF epinephrine 0.3 mg/0.3 mL auto-injector 0.3 mg IM Q20M PRN (Reason: anaphylaxis) Qty: 3 3RF Rx Instructions: until response tramadol 50 mg tablet 50 mg PO Q8H 30 Days Qty: 90 0RF Rx Instructions: Refill on or after 30 day intervals Discharge Orders: Discharge ED (Routine); Ordered 06/15/24 Ordered By: Lynne Hurtado Referrals: Sugar Stratton MD [Primary Care Provider] - Discharge Diet: Advance as tolerated Discharge Activity: Resume usual activity Patient Instructions: General Allergic Reaction (ED) Print Language: Icelandic Coding Level of Care Code ED Finishing Area Operator for Kerry Kline
[2024-06-15] MEDS: methylPREDNISolone sod succ 125 mg/2 mL INJ IVP (20:06)
[2024-06-15] MEDS: LORazepam 2 mg/mL INJ 1 mL 0.5 MG IVP (20:06)
[2024-06-15 20:10] VITALS: BP 110/81; PULSE 97; RESP 16; O2SAT 97
[2024-06-15 20:57] VITALS: BP 102/56; PULSE 68; RESP 16; O2SAT 94
[2024-06-15 21:24] VITALS: BP 106/65; PULSE 63; RESP 14; O2SAT 91
== END 2024-06-15 21:20 | disposition home or self-care (01) ==
PROVIDERS: Emergency Provider Emergency Medicine; PCP Family Medicine
DX: T78.40XA Allergy, unspecified, initial encounter (principal); X58.XXXA Exposure to other specified factors, initial encounter; Z87.891 Personal history of nicotine dependence; J44.9 Chronic obstructive pulmonary disease, unspecified; I12.9 Hypertensive chronic kidney disease with stage 1 through stage 4 chronic kidney disease, or unspecified chronic kidney disease; N18.9 Chronic kidney disease, unspecified
CPT/HCPCS: 96374; 96375; 99284; J2060; J2919

== ENCOUNTER 2024-08-15 09:00 | Emergency (ER) | payer MEDICARE, SELFPAY ==
--- NOTE | 2024-08-15 09:02 | XRR_ITS ---
PROCEDURE INFORMATION: Exam: XR Chest Exam date and time: 08/15/2024 9:16 AM Age: 43 years old Clinical indication: Cough and dyspnea; Additional info: Dyspnea/cough TECHNIQUE: Imaging protocol: Radiologic exam of the chest. Views: 1 view. COMPARISON: CR XR chest 1V portable [id number] 01/23/2024 6:16 PM FINDINGS: Lungs: Unremarkable. No consolidation. Pleural spaces: Unremarkable. No pleural effusion. No pneumothorax. Heart/Mediastinum: Unremarkable. No cardiomegaly. Bones/joints: Unremarkable. XR/XR chest 1V portable [id number] IMPRESSION: No acute findings.
--- NOTE | 2024-08-15 09:06 | ECG_ITS ---
[facility] Date: 2024-08[facility]15 Pat Name: Carmen Stevenson Department: Room: Gender: Female Telephone Directory Deliverer: : 1980 Requested By: Prem Love Order Number: [id number] Terrance MD: Sy Broussard M.D. Measurements Intervals [place] Rate: 64 P: 65 [place]: 132 QRS: 65 QRSD: 81 T: 36 QT: 362 QTc: 375 Interpretive Statements SINUS RHYTHM Compared to ECG 01/23/2024 16:26:31 T-wave abnormality no longer present Electronically Signed On 08-16-2024 09:17:38 CDT by Sy Broussard M.D. [email or web address] [id number]
[2024-08-15 09:11] VITALS: BP 149/72; PULSE 75; RESP 18; TEMP 36.4; O2SAT 100
--- NOTE | 2024-08-15 09:12 | ED_ITS ---
HPI - Chest Pain 2 General: Chief Complaint: Abdominal Pain Stated Complaint: chest pain Time Seen by Provider: 08/15/24 09:02 History of Present Illness: 43-year-old female presents to the emerg ency room with complaints of pain all over. In her triage data stated complaint was chest pain chief complaint was abdominal pain when I talked to her she states she really does not have specific pain anywhere she just hurts all over. Patient smells strongly of marijuana. She is angry and confrontational with nursing staff and with myself. Is difficult to review her history with her. Patient is adamant that she be prescribed tramadol. She states she has not had any in over a week now and that she is having withdrawals. She also tells me she has previously had her pancreas out later she states it was her appendix not her pancreas. She also states that she has alpha gal and is having a reaction from this. She is not sure in particular what she might have ingested to precipitate that. Associated symptoms: Reports abdominal pain; Deny dyspnea or fever(s) Related Data Home Medications ?Medication ?Instructions ?Recorded ?Confirmed chlorzoxazone 500 mg tablet 500 mg PO QID PRN Muscle S pasm 08/15/24 08/16/24 Previous Rx's ?Medication ?Instructions ?Recorded cetirizine 10 mg tablet 10 mg PO DAILY Allergies #90 tabs 01/19/24 metoprolol tartrate 25 mg tablet 25 mg PO DAILY #90 ta bs 02/19/24 epinephrine 0.3 mg/0.3 mL 0.3 mg (0.3 mL) IM Q20M PRN 06/09/24 injection, auto-injector anaphylaxis #3 ea tramadol 50 mg tablet 50 mg PO Q8H pain, moderate 30 07/12/24 days #90 tabs pantoprazole 40 mg tablet,delayed 40 mg PO DAILY #30 t abs 08/15/24 release (Protonix) Allergies Allergy/AdvReac Type Severity Reaction Status Date / Time nicolette Allergy Intermediate ALGY-Swell Verified 08/15/24 09:45 Lip/Tongue/Throat pineapple Allergy Intermediate ALGY-Rash Verified 08/15/24 09:45 squash Allergy Mild ALGY-Rash Verified 08/15/24 09:45 nut - unspecified Allergy Unknown Unknown Verified 08/15/24 09:45 acetaminophen Allergy Unknown Verified 08/15/24 09:45 Alpha-Gal Allergy Unknown Verified 08/15/24 09:45 (Omlxzcmzb-Cqwoo-2,3-Gala aspartame Allergy ALGY-Anaphy Verified 08/16/24 20:29 laxis diphenhydramine (From Allergy ALGY-Anaphy Verified 08/15/24 09:45 Benadryl) laxis egg Allergy ALGY-Anaphy Verified 08/15/24 09:45 laxis famotidine (From Pepcid) Allergy ALGY-Anaphy Verified 08/16/24 20:29 laxis Influenza Virus Vaccines Allergy Unknown Verified 08/15/24 09:45 shellfish derived Allergy ALGY-Anaphy Verified 08/16/24 20:29 laxis peppers Allergy Severe rash Uncoded 08/15/24 09:45 Review of Systems 2 Const: Denies: fever(s) or chills Card: Denies: chest pain Resp: Denies: dyspnea GI: Reports: abdominal pain : Denies: dysuria, urinary frequency or urinary urgency Musc: Denies: neck pain or back pain Skin/Breast: Denies: rash PFSH ED 2 PFSH: Medical History Nicotine dependence, cigarettes, in remission quit 2007 Encounter for chronic pain management Pain management contract signed 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 Palpitations takes metoprolol Pain and swelling of right upper extremity Phlebitis and thrombophlebitis Allergy to alpha-gal CKD (chronic kidney disease) stage 2, GFR 60-89 ml/min Allergic rhinitis due to allergen Hx of [place] spotted fever Hx of Lyme disease Anxiety and depression PTSD (post-traumatic stress disorder) COPD (chronic obstructive pulmonary disease) Dyslexia, developmental Head trauma HTN (hypertension) Fibromyalgia has been on tramadol for decades Asthma Surgical History History of surgical procedure on mouth infected tooth that resulted in complications Hx of lipoma large one from back of neck removed Hx of nephrolithotomy with removal of calculi 3 times; Hx of hernia repair R upper abdominal surgical hernia repair Hx of esophagogastroduodenoscopy multiple Hx of colonoscopy multiple--has had 6 so far Hx of appendectomy Hx of cholecystectomy Hx of pelvic surgery age 16--8hrs of surgery; PID--tubes, uterine tubes/bladder Hx of hysterectomy with oophorectomy Has left ovary in place; was removed for benign reasons Hx of resection of rib R 1st rib for thoracic outlet Family History Mother Thyroid disease Social History Smoking and tobacco/nicotine status: former use of tobacco/nicotine Quit status (tobacco/nicotine): has quit using Year quit tobacco: 2007 Alcohol intake: never Substance/Drug Use: current Substance/Drug use type: Marijuana Marital status: Number of children: 0 Highest education level completed: 9th Grade Current occupational status: disabled 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, 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, 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, [employer] Current gender identity: Female Physical Exam 2 Const: ORIENTATION/CONSCIOUSNESS: Yes awake, Yes oriented to person, Yes oriented to place and Yes oriented to time HENMT: COMMON NORMALS: normocephalic, atraumatic and hearing grossly normal bilaterally HEAD & SCALP: normocephalic and atraumatic Resp: COMMON NORMALS: normal respiratory effort, No retractions, No use of accessory muscles and clear to auscultation bilaterally AUSCULTATION: clear to auscultation bilaterally Cardio: COMMON NORMALS: regular rate, regular rhythm and No murmurs present (Cardio) RATE: regular rate RHYTHM: regular rhythm GI: COMMON NORMALS: Soft to palpation and No hepatosplenomegaly present A USCULTATION: Yes normoactive bowel sounds PALPATION: Yes Soft to palpation, No Tenderness to palpation present (GI), No Guarding due to palpation present (GI) and Yes No hepatosplenomegaly present Extremity: COMMON NORMALS: normal to inspection, capillary refill normal, no clubbing, cyanosis or edema, no calf tenderness and no pedal edema Neuro: SENSORIUM/ORIENTATION: Yes oriented to person, Yes oriented to place and Yes oriented to time Skin: COMMON NORMALS: no rashes or lesions noted GENERAL SKIN EXAM: no rashes or lesions noted Course 2 Vital Signs: Vital signs: Vital Signs Temperature 97.6 F 08/15/24 09:11 Pulse Rate 64 08/15/24 12:00 Respiratory Rate 18 08/15/24 12:00 Blood Pressure 132/100 08/15/24 12:00 Pulse Oximetry 99 08/15/24 12:00 Oxygen Delivery Me thod Room Air 08/15/24 09:11 MDM - Chest Pain Medical Decision Making Patient has a white count of 15,000 but had steroids and route prior to arrival think that is what causing her elevated white count. Her vital signs otherwise normal she is afebrile saturations normal blood pressure is mildly elevated she is not cardiac. The remainder of her labs do not show clinically significant abnormality. Her main complaint at this point is that she is no longer able to get tramadol since her doctor quit prescribing it. Discussed with her we do not manage chronic pain issues In the emergency room and would not be able to refill her tramadol we can give him meloxicam. She was very upset with this and stated that because of her alpha gal they would likely make her going to anaphylactic shock. We contacted the pharmacy and confirmed with them that this is alpha gal safe. Patient was discharged home recommend follow-up to establish with a PCP as soon as she is able. Medical Records I reviewed the patient's medical records. Lab Data I reviewed the patient's lab results. 08/15/24 09:25 08/15/24 09:25 Radiology Impressions Chest X-Ray 08/15/24 09:02 IMPRESSION: No acute findings. Laboratory Results WBC 15.19 10^3/uL (3.29-11.43) H 08/15/24 09:25 RBC 4.45 10^6/uL (3.85-5.65) 08/15/24 09:25 Hgb 14.90 g/dL (11.27-16.99) 08/15/24: Hct 43.6 % (36-47) 08/15/24 09:25 MCV 98.0 fl (85-98) 08/15/24 09: MCH 33.5 pg (27-33) H 08/15/24: MCHC 34.2 g/dL (30-55) 08/15/24: RDW 13.1 % (12.1-15.1) 08/15/24 09:25 Plt Count 182 10^3/cmm (157-399) 08/15/24 09: MPV 9.6 fL (7.4-10.4) 08/15/24 09: Neut % (Auto) 63.8 % 08/15/24 09:25 Lymph % (Auto) 29.4 % 08/15/24 09:25 [place] % (Auto) 5.7 % 08/15/24 09:25 Eos % (Auto) 0.3 % 08/15/24 09:25 Baso % (Auto) 0.1 % 08/15/24 09:25 Neut # (Auto) 9.70 10^3/uL (1.8-7.7) H 08/15/24 09:25 Lymph # (Auto) 4.5 10^3/uL (0.8-4.8) 08/15/24 09:25 [place] # (Auto) 0.9 10^3/uL (0.2-0.9) 08/15/24 09: Eos # (Auto) 0.0 10^3/uL (0.0-0.8) 08/15/24 09:25 Baso # (Auto) 0.0 10^3/uL (0.0-0.1) 08/15/24 09: Nucleated RBC % (auto) 0 % 08/15/24 09: Nucleated RBCs # 0.0 /100WBC 08/15/24 09:25 Sodium 141 mmol/L (136-145) 08/15/24 09:25 Potassium 3.8 mmol/L (3.5-5.1) 08/15/24 09:25 Chloride 101 mmol/L (98-107) 08/15/24 09: Carbon Dioxide 27 mmol/L (22-29) 08/15/24 09:25 Anion Gap 16.8 (5-19) 08/15/24 09:25 BUN 13 mg/dL (6-20) 08/15/24 09:25 Creatinine 1.1 mg/dL (0.5-0.9) H 08/15/24 09:25 GFR Calculation 54.0 mL/min (90-130) L 08/15/24 09:25 Glucose 88 mg/dL (65-115) 08/15/24 09:25 Calculated Osmolality 292 mOsm/kg (285-295) 08/15/24 09:25 Calcium 9.3 mg/dL (8.5-10.5) 08/15/24 09:25 Total Bilirubin 0.6 mg/dL (0.15-1.2) 08/15/24 09:25 AST 12 U/L (0-32) 08/15/24 09:25 ALT 36 U/L (0-33) H 08/15/24 09:25 Alkaline Phosphatase 75 U/L (35-105) 08/15/24 09: Creatine Kinase 75 U/L (26-192) 08/15/24 09:25 Troponin T Baseline < 6 ng/L (0-10) 08/15/24 09: Troponin T 120 Minute 6.00 ng/L (0-10) 08/15/24 11:21 Delta Troponin T 0.40227 ABS# (0-10) 08/15/24 11:21 Total Protein 7.3 g/dL (6.6-8.7) 08/15/24 09: Albumin 4.7 g/dL (3.5-5.2) 08/15/24 09: Globulin 2.6 g/dL (1.3-4.6) 08/15/24 09: Lipase 55 U/L (13-60) 08/15/24 09:25 Urine Color Yellow (Yellow) 08/15/24 10:35 Urine Appearance Clear (CLEAR) 08/15/24 10:35 Urine pH 7.5 (5-7) 08/15/24 10:35 Ur Specific [place] 1.006 (1.005-1.030) 08/15/24 10:35 Urine Protein Neg (Negative) 08/15/24 10:35 Urine Glucose (UA) Norm (Normal) 08/15/24 10:35 Urine Ketones Negative (Negative) 08/15/24 10:35 Urine Blood Neg (Negative) 08/15/24 10:35 Urine Nitrate Negative (Negative) 08/15/24 10:35 Urine Bilirubin Neg (Negative) 08/15/24 10:35 Urine Urobilinogen 0.2 mg/dL (Negative) 08/15/24 10:35 Ur Leukocyte Esterase Negative (Negative) 08/15/24 10:35 Amorphous Sediment Not Reportable 08/15/24 10:35 Urine Opiates Screen Negative ng/mL (Negative) 08/15/24 10:35 Ur Barbiturates Screen Negative ng/mL (Negative) 08/15/24 10:35 Ur Phencyclidine Scrn Negative ng/mL (Negative) 08/15/24 10:35 Ur Amphetamines Screen Negative ng/mL (Negative) 08/15/24 10:35 U Benzodiazepines Scrn Negative ng/mL (Negative) 08/15/24 10:35 Urine Cocaine Screen Negative ng/mL (Negative) 08/15/24 10:35 U Marijuana (THC) Screen Positive ng/mL (Negative) H 08/15/24 10:35 Ethyl Alcohol < 10 mg/dL (0-10) 08/15/24 09:25 All radiology interpretation(s) finalized by discharge Discharge Plan Discharge Patient Disposition: Home Clinical Impression: Allergy to alpha-gal, Fibromyalgia Condition: Stable Prescriptions: New pantoprazole [Protonix] 40 mg tablet,delayed release (DR/EC) 40 mg PO DAILY Qty: 30 0RF No Action cetirizine 10 mg tablet 10 mg PO DAILY Qty: 90 3RF metoprolol tartrate 25 mg tablet 25 mg PO DAILY Qty: 90 3RF epinephrine 0.3 mg/0.3 mL auto-injector 0.3 mg IM Q20M PRN (Reason: anaphylaxis) Qty: 3 3RF Rx Instructions: until response tramadol 50 mg tablet 50 mg PO Q8H 30 Days Qty: 90 0RF Rx Instructions: Refill on or after 30 day intervals chlorzoxazone 500 mg tablet 500 mg PO QID PRN (Reason: Muscle Spasm) Discharge Orders: Discharge ED (Routine); Ordered 08/15/24 Ordered By: Prem Currie Referrals: Sugar Stratton MD [Primary Care Provider, Family Practice] Discharge Diet: Usual diet Discharge Activity: Increase activity as tolerated Patient Instructions: Opioid Safety, Pain Management Activity Restrictions/Additional Instructions: Thank you for choosing [facility] for your healthcare needs today. It is very important that you follow up as instructed or that you return to the Emergency Department should you have concerns or if your condition changes or worsens in any way. You were seen emergency room with complaints of generalized pain. Platelet count was slightly elevated today there is no sign of an acute infection your abdominal exam was benign your pancreas enzyme was normal. Urine did not show signs of infection. Your chest x-ray EKG and cardiac enzymes were normal. We did refill your pantoprazole. Your blood pressure was not significantly elevated and at times your heart rate was at the low end of normal we did not refill your metoprolol at this point in time. Follow-up with your primary care doctor regarding this. In the emergency room we do not refill or manage chronic narcotic medications. You should follow-up with your primary care doctor or establish with a new primary care doctor regarding chronic pain. We did give you a prescription for meloxicam to use for pain. We verified with the pharmacy that this is safe in a person with alpha gal. Print Language: Thai Coding Level of Care Code ED Cashier Manager for Kerry Kline
[2024-08-15 09:30] LABS: Basophils % 0.1 %; Eosinophils % 0.3 %; Hematocrit 43.6 % (36-47); Lymphocytes # 4.5 10^3/uL (0.8-4.8); Lymphocytes % 29.4 %; Mean Corpuscular HGB Conc 34.2 g/dL (30-55); Mean Corpuscular Hemoglobin 33.5 pg (27-33); Mean Platelet Volume 9.6 fL (7.4-10.4); Monocytes # 0.9 10^3/uL (0.2-0.9); Monocytes % 5.7 %; Neutrophils % 63.8 %; Nucleated Red Blood Cells % 0 %; Platelet Count 182 10^3/cmm (157-399); Red Blood Count 4.45 10^6/uL (3.85-5.65); Red Cell Distribution Width 13.1 % (12.1-15.1); White Blood Count 15.19 10^3/uL (3.29-11.43)
[2024-08-15 09:47] LABS: Troponin(5th) Baseline < 6 ng/L (0-10)
[2024-08-15 09:52] LABS: Alanine Aminotransferase 36 U/L (0-33); Albumin Level 4.7 g/dL (3.5-5.2); Alkaline Phosphatase 75 U/L (35-105); Anion Gap 16.8 (5-19); Aspartate Amino Transferase 12 U/L (0-32); Blood Urea Nitrogen 13 mg/dL (6-20); Calcium 9.3 mg/dL (8.5-10.5); Carbon Dioxide 27 mmol/L (22-29); Chloride 101 mmol/L (98-107); Creatinine Clr Calc Pharmacy 53.3635; Globulin 2.6 g/dL (1.3-4.6); Glucose 88 mg/dL (65-115); Osmolality Calculated 292 mOsm/kg (285-295); Potassium 3.8 mmol/L (3.5-5.1); Sodium 141 mmol/L (136-145); Total Bilirubin 0.6 mg/dL (0.15-1.2); Total Protein 7.3 g/dL (6.6-8.7)
[2024-08-15] MEDS: ketorolac 30 mg/mL INJ IVP (09:52)
[2024-08-15] MEDS: methylPREDNISolone sod succ 125 mg/2 mL INJ IVP (09:53)
[2024-08-15 09:54] VITALS: BP 129/91; PULSE 77; O2SAT 98
[2024-08-15 10:30] LABS: Creatine Phosphokinase 75 U/L (26-192); Lipase 55 U/L (13-60)
[2024-08-15 10:42] LABS: Alcohol Level < 10 mg/dL (0-10)
[2024-08-15 10:44] VITALS: BP 115/88; PULSE 68; RESP 14; O2SAT 98
[2024-08-15 10:59] LABS: Add Urine Microscopic? NO
[2024-08-15 11:00] VITALS: BP 114/75; PULSE 64; RESP 13; O2SAT 98
[2024-08-15 11:10] LABS: Amphetamines Screen Urine Negative (Negative); Barbiturates Screen Urine Negative (Negative); Benzodiazepines Screen Urine Negative (Negative); Cocaine Screen Urine Negative (Negative); Opiate Screen Urine Negative (Negative); PCP Screen Urine Negative (Negative); THC Screen Urine Positive (Negative)
[2024-08-15 11:19] LABS: Bilirubin Urine Neg (Negative); Blood Urine Neg (Negative); Glucose Urine UA Norm (Normal); Ketones Urine Negative (Negative); Leukocyte Esterase Urine Negative (Negative); Nitrate Urine Negative (Negative); Protein Urine Neg (Negative); Specific Gravity, Urine 1.006 (1.005-1.030); Urine Appearance Clear (CLEAR); Urine Color Yellow (Yellow); Urobilinogen Urine 0.2 mg/dL (Negative); pH Urine 7.5 (5-7)
[2024-08-15 11:20] LABS: Charge for UA Resulting for Rev
[2024-08-15 12:00] VITALS: BP 132/100; PULSE 64; RESP 18; O2SAT 99
[2024-08-15 12:04] LABS: Troponin 5 2HR Delta 0.00001 ABS# (0-10)
--- NOTE | 2024-08-15 12:25 | PC.NURSE ---
DR. TANNER AND NURSE ENTERED ROOM. PT HAS STRONG ODOR OF MARIJUANA COMING FROM HER. DR. TANNER WAS ASSESSING PT AND ASKING QUESTIONS ON WHY PT WAS IN THE ER. PT STATES HER PRIMARY CARE PROVIDER DUMPED HER AND WONT REFILL HER PAIN MEDS. PT IS VERY IRRITATED AND CUSSING AT STAFF. DR. TANNER KINDLY EXPLAINED WE DONT REFILL CHRONIC MEDS. PT BECAME VERY ANGRY AND RAISING HER VOICE, NURSE ASKED PT TO LOWER VOICE AND TO RESPECT STAFF. PT KEPT CONTINUING TO CUSS AT STAFF. NURSE CALLED SECURITY, DR. TANNER EXPLAINED TO PT WE ARE GOING TO RUN TEST AND GIVE SOME MEDS. PT WANTED NURSE AND DOCTOR OUT OF HER ROOM.
--- NOTE | 2024-08-15 12:41 | PC.NURSE ---
DR. TANNER AND NURSE ENTERED ROOM, ROOM HAD STRONG SMELL OF WEED. DR. TANNER WAS DISCHARGING PT AND EXPLAINING DISCHARGE ORDERS, PT BECAME ANGRY WHEN TOLD WE WOULD NOT REFILL HER PAIN MEDS. PT STATES WHAT AM I GOING TO DO WHEN I WAKE UP TOMORROW AND I AM HURTING? COME BACK? DR. TANNER EXPLAINED WE COULD NOT REFILL THE TRAMADOL BUT WE COULD SEND IN DICLOFENAC UNTIL SHE FOLLOWS UP WITH A PRIMARY DOCTOR. PT BECAME ANGRY AND STATES THATS WHY IM HERE BECAUSE MY PRIMARY DUMPED ME AND CUT OFF MY MEDS. DR. TANNER STATED WE COULD SET HER UP WITH ANOTHER PRIMARY DOCTOR AND HAVE CASE MANAGEMENT REACHED OUT TO PT. PT WAS STILL UNHAPPY. PT ASKED FOR NURSE AND DR. KC NAME.
--- NOTE | 2024-08-15 12:48 | PC.NURSE ---
PRIMARY NURSE AND CHARGE WENT TO DISCHARGE PT, PT AMBULATED TO EXIT DOOR. PT WAS LEAVING, CHARGE NURSE HEARD PT SAY, I CANT WAIT TO GET ANOTHER DOCTOR FIRED.
--- NOTE | 2024-08-18 09:18 | DCPLANNER ---
Patient has a primary Physician
== END 2024-08-15 12:43 | disposition home or self-care (01) ==
PROVIDERS: Emergency Provider Family Medicine; PCP Family Medicine
DX: M79.7 Fibromyalgia (principal); Z91.014 Allergy to mammalian meats; Z87.891 Personal history of nicotine dependence; J44.9 Chronic obstructive pulmonary disease, unspecified; I12.9 Hypertensive chronic kidney disease with stage 1 through stage 4 chronic kidney disease, or unspecified chronic kidney disease; N18.2 Chronic kidney disease, stage 2 (mild)
CPT/HCPCS: 71045; 80053; 80306; 80307; 81003; 82550; 83690; 84484; 85025; 93005; 96374; 96375; 99285; J1885; J2919

== ENCOUNTER 2024-08-16 07:58 | Observation (INO) | payer MEDICARE, SELFPAY ==
[2024-08-16] VITALS (10 sets, daily range): BP systolic 113–148; BP diastolic 48–92; PULSE 68–102; RESP 10–26; TEMP 37.1–37.2; O2SAT 94–99
--- NOTE | 2024-08-16 07:59 | ECG_ITS ---
[facility] Test Date: 2024-08-16 Pat Name: Carmen Stevenson Department: Room: Gender: Female Hearing Care Professional: : 1980 Requested By: Prem Love Order Number: [id number] Terrance MD: Sy Broussard M.D. Measurements Intervals [place] Rate: 88 P: 76 [place]: 112 QRS: 79 QRSD: 86 T: 38 QT: 346 QTc: 419 Interpretive Statements SINUS RHYTHM WITH SINUS ARRHYTHMIA WITH SHORT MA INTERVAL MODERATE ST DEPRESSION [0.05+ mV ST DEPRESSION] Compared to ECG 08/15/2024 09:06:18 Short MA interval now present ST (T wave) deviation now present Electronically Signed On 08-16-2024 09:10:37 CDT by Sy Broussard M.D. [email or web address] [id number]
[2024-08-16 08:13] LABS: Basophils % 0.2 %; Hematocrit 42.8 % (36-47); Lymphocytes # 2.1 10^3/uL (0.8-4.8); Lymphocytes % 9.7 %; Mean Corpuscular HGB Conc 34.6 g/dL (30-55); Mean Corpuscular Hemoglobin 33.3 pg (27-33); Mean Corpuscular Volume 96.4 fl (85-98); Mean Platelet Volume 10.1 fL (7.4-10.4); Monocytes # 1.3 10^3/uL (0.2-0.9); Monocytes % 6.2 %; Neutrophils # 17.64 10^3/uL (1.8-7.7); Nucleated Red Blood Cells % 0 %; Platelet Count 221 10^3/cmm (157-399); Red Blood Count 4.44 10^6/uL (3.85-5.65); Red Cell Distribution Width 13.2 % (12.1-15.1); White Blood Count 21.24 10^3/uL (3.29-11.43)
--- NOTE | 2024-08-16 08:30 | ED_ITS ---
HPI - General Adult 2 General: Chief complaint: General Medical Stated complaint: high hr Time Seen by Provider: 08/16/24 08:01 History of Present Illness: 43-year-old female presents emergency ro om via EMS she is concerned she is having withdrawal from tramadol. She was seen yesterday given a prescription for meloxicam for pain she had told us that she had not had her tramadol in a couple of weeks. She reports yesterday that her doctor abruptly stopped filling her medications a few weeks ago. She also has a history of alpha gal. She was discharged home with meloxicam after we had verified with pharmacy that this was safe for alpha gal. She returns again today reporting high heart rate and nausea and withdrawal from tramadol. Patient has not taken her metoprolol today. She reports her heart rate has been sporadic going rather fast at times and then slowing down. She also reports she was not able to get the meloxicam or the pantoprazole filled yesterday. Troponin series done yesterday was negative EKG did not show any acute changes. Associated symptoms: Reports chest pain; Deny dyspnea or rash Related Data Home Medications ?Medication ?Instructions ?Recorded ?Confirmed chlorzoxazone 500 mg tablet 500 mg PO QID PRN Muscle S pasm 08/15/24 08/16/24 Previous Rx's ?Medication ?Instructions ?Recorded cetirizine 10 mg tablet 10 mg PO DAILY Allergies #90 tabs 01/19/24 metoprolol tartrate 25 mg tablet 25 mg PO DAILY #90 ta bs 02/19/24 epinephrine 0.3 mg/0.3 mL 0.3 mg (0.3 mL) IM Q20M PRN 06/09/24 injection, auto-injector anaphylaxis #3 ea tramadol 50 mg tablet 50 mg PO Q8H pain, moderate 30 07/12/24 days #90 tabs pantoprazole 40 mg tablet,delayed 40 mg PO DAILY #30 t abs 08/15/24 release (Protonix) Allergies Allergy/AdvReac Type Severity Reaction Status Date / Time nicolette Allergy Intermediate ALGY-Swell Verified 08/15/24 09:45 Lip/Tongue/Throat pineapple Allergy Intermediate ALGY-Rash Verified 08/15/24 09:45 squash Allergy Mild ALGY-Rash Verified 08/15/24 09:45 nut - unspecified Allergy Unknown Unknown Verified 08/15/24 09:45 acetaminophen Allergy Unknown Verified 08/15/24 09:45 Alpha-Gal Allergy Unknown Verified 08/15/24 09:45 (Idflsfoqx-Yjlci-5,3-Gala diphenhydramine (From Allergy ALGY-Anaphy Verified 08/15/24 09:45 Benadryl) laxis egg Allergy ALGY-Anaphy Verified 08/15/24 09:45 laxis Influenza Virus Vaccines Allergy Unknown Verified 08/15/24 09:45 peppers Allergy Severe rash Uncoded 08/15/24 09:45 Review of Systems 2 Const: Denies: fever(s) or chills Card: Reports: chest pain Resp: Denies: dyspnea GI: Denies: abdominal pain : Denies: dysuria, urinary frequency or urinary urgency Musc: Denies: neck pain or back pain Skin/Breast: Denies: rash PFSH ED 2 PFSH: Medical History Nicotine dependence, cigarettes, in remission quit 2007 Encounter for chronic pain management Pain management contract signed 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 Palpitations takes metoprolol Pain and swelling of right upper extremity Phlebitis and thrombophlebitis Allergy to alpha-gal CKD (chronic kidney disease) stage 2, GFR 60-89 ml/min Allergic rhinitis due to allergen Hx of [place] spotted fever Hx of Lyme disease Anxiety and depression PTSD (post-traumatic stress disorder) COPD (chronic obstructive pulmonary disease) Dyslexia, developmental Head trauma HTN (hypertension) Fibromyalgia has been on tramadol for decades Asthma Surgical History History of surgical procedure on mouth infected tooth that resulted in complications Hx of lipoma large one from back of neck removed Hx of nephrolithotomy with removal of calculi 3 times; Hx of hernia repair R upper abdominal surgical hernia repair Hx of esophagogastroduodenoscopy multiple Hx of colonoscopy multiple--has had 6 so far Hx of appendectomy Hx of cholecystectomy Hx of pelvic surgery age 16--8hrs of surgery; PID--tubes, uterine tubes/bladder Hx of hysterectomy with oophorectomy Has left ovary in place; was removed for benign reasons Hx of resection of rib R 1st rib for thoracic outlet Family History Mother Thyroid disease Social History Smoking and tobacco/nicotine status: never used tobacco/nicotine Quit status (tobacco/nicotine): has quit using Year quit tobacco: 2007 Alcohol intake: never Substance/Drug Use: current Substance/Drug use frequency: daily Marital status: Number of children: 0 Highest education level completed: 9th Grade Current occupational status: disabled 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, 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, 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, [employer] Current gender identity: Female Physical Exam 2 Const: COMMON NORMALS: no acute distress GENERAL APPEARANCE: cooperative and comfortable ORIENTATION/CONSCIOUSNESS: Yes awake, Yes oriented to person, Yes oriented to place and Yes oriented to time HENMT: COMMON NORMALS: normocephalic, atraumatic and hearing grossly normal bilaterally HEAD & SCALP: normocephalic and atraumatic Resp: COMMON NORMALS: normal respiratory effort, No retractions, No use of accessory muscles and clear to auscultation bilaterally AUSCULTATION: clear to auscultation bilaterally Cardio: COMMON NORMALS: regular rate, regular rhythm and No murmurs present (Cardio) RATE: regular rate RHYTHM: regular rhythm GI: COMMON NORMALS: Soft to palpation and No hepatosplenomegaly present A USCULTATION: Yes normoactive bowel sounds PALPATION: Yes Soft to palpation, No Tenderness to palpation present (GI), No Guarding due to palpation present (GI) and Yes No hepatosplenomegaly present Extremity: COMMON NORMALS: normal to inspection, capillary refill normal, no clubbing, cyanosis or edema, no calf tenderness and no pedal edema Neuro: SENSORIUM/ORIENTATION: Yes oriented to person, Yes oriented to place and Yes oriented to time Skin: COMMON NORMALS: no rashes or lesions noted GENERAL SKIN EXAM: no rashes or lesions noted Course 2 Vital Signs: Vital signs: Vital Signs Temperature 98.9 F 08/16/24 08:00 Pulse Rate 73 08/16/24 16:03 Respiratory Rate 16 08/16/24 16:03 Blood Pressure 142/67 08/16/24 16:03 Pulse Oximetry 96 08/16/24 16:03 Oxygen Delivery Me thod Room Air 08/16/24 16:03 [facility] - General Adult Medical Decision Making Significant anion gap and lactic acid on initial labs repeat lactic is decreased significantly and normalized white count is markedly elevated I suspect this is from the steroids she was given yesterday. She has no found source of infection at this time. Cultures were done prophylactically started Zosyn. She has had a slight bump in her troponin as well. Will admit for IV antibiotics and further evaluation of the tachycardia and elevated troponin. Discussed with hospitalist will place on observation Medical Records I reviewed the patient's medical records. Lab Data I reviewed the patient's lab results. 08/16/24 08:04 08/16/24 08:04 Radiology Impressions Chest X-Ray 08/16/24 09:18 IMPRESSION: Stable chest without acute abnormality. Laboratory Results WBC 21.24 10^3/uL (3.29-11.43) H 08/16/24 08:04 RBC 4.44 10^6/uL (3.85-5.65) 08/16/24 08:04 Hgb 14.80 g/dL (11.27-16.99) 08/16/24 08:04 Hct 42.8 % (36-47) 08/16/24 08:04 MCV 96.4 fl (85-98) 08/16/24 08:04 MCH 33.3 pg (27-33) H 08/16/24 08:04 MCHC 34.6 g/dL (30-55) 08/16/24 08:04 RDW 13.2 % (12.1-15.1) 08/16/24 08:04 Plt Count 221 10^3/cmm (157-399) 08/16/24 08:04 MPV 10.1 fL (7.4-10.4) 08/16/24 08:04 Neut % (Auto) 83.0 % 08/16/24 08:04 Lymph % (Auto) 9.7 % 08/16/24 08:04 [place]ite % (Auto) 6.2 % 08/16/24 08:04 Eos % (Auto) 0.0 % 08/16/24 08:04 Baso % (Auto) 0.2 % 08/16/24 08:04 Neut # (Auto) 17.64 10^3/uL (1.8-7.7) H 08/16/24 08:04 Lymph # (Auto) 2.1 10^3/uL (0.8-4.8) 08/16/24 08:04 [place] # (Auto) 1.3 10^3/uL (0.2-0.9) H 08/16/24 08:04 Eos # (Auto) 0.0 10^3/uL (0.0-0.8) 08/16/24 08:04 Baso # (Auto) 0.0 10^3/uL (0.0-0.1) 08/16/24 08:04 Nucleated RBC % (auto) 0 % 08/16/24 08:04 Nucleated RBCs # 0.0 /100WBC 08/16/24 08:04 D-Dimer 0.36 ug/mLFEU (0-0.59) 08/16/24 05:15 Sodium 141 mmol/L (136-145) 08/16/24 08:04 Potassium 3.7 mmol/L (3.5-5.1) 08/16/24 08:04 Chloride 98 mmol/L (98-107) 08/16/24 08:04 Carbon Dioxide 19 mmol/L (22-29) L 08/16/24 08:04 Anion Gap 27.7 (5-19) H 08/16/24 08:04 BUN 16 mg/dL (6-20) 08/16/24 08:04 Creatinine 1.1 mg/dL (0.5-0.9) H 08/16/24 08:04 GFR Calculation 54.0 mL/min (90-130) L 08/16/24 08:04 Glucose 141 mg/dL (65-115) H 08/16/24 08:04 Calculated Osmolality 296 mOsm/kg (285-295) H 08/16/24 08:04 Lactic Acid 6.9 mmol/L (0.5-2.2) H* 08/16/24 08:04 Lactic Acid (Sepsis) 1.9 mmol/L (0.5-2.2) 08/16/24 11:21 Calcium 10.1 mg/dL (8.5-10.5) 08/16/24 08:04 Total Bilirubin 0.5 mg/dL (0.15-1.2) 08/16/24 08:04 AST 13 U/L (0-32) 08/16/24 08:04 ALT 34 U/L (0-33) H 08/16/24 08:04 Alkaline Phosphatase 77 U/L (35-105) 08/16/24 08:04 Troponin T Baseline < 6 ng/L (0-10) 08/16/24 08:04 Troponin T 120 Minute 11.14 ng/L (0-10) H 08/16/24 10:20 Delta Troponin T 5.70124 ABS# (0-10) 08/16/24 10:20 NT-Pro-B Natriuret Pep 304 pg/mL (0-125) H 08/16/24 08:04 Total Protein 7.5 g/dL (6.6-8.7) 08/16/24 08:04 Albumin 4.9 g/dL (3.5-5.2) 08/16/24 08:04 Globulin 2.6 g/dL (1.3-4.6) 08/16/24 08:04 Lipase 43 U/L (13-60) 08/16/24 08:04 Procalcitonin 0.03 ng/mL (0-0.5) 08/16/24 08:04 TSH 1.14 uIU/mL (0.27-4.20) 08/16/24 08:04 Urine Color Yellow (Yellow) 08/16/24 08:29 Urine Appearance Clear (CLEAR) 08/16/24 08:29 Urine pH 7 (5-7) 08/16/24 08:29 Ur Specific Pimento 1.005 (1.005-1.030) 08/16/24 08:29 Urine Protein Neg (Negative) 08/16/24 08:29 Urine Glucose (UA) Norm (Normal) 08/16/24 08:29 Urine Ketones Negative (Negative) 08/16/24 08:29 Urine Blood Neg (Negative) 08/16/24 08:29 Urine Nitrate Negative (Negative) 08/16/24 08:29 Urine Bilirubin Neg (Negative) 08/16/24 08:29 Urine Urobilinogen Norm mg/dL (Negative) 08/16/24 08:29 Ur Leukocyte Esterase Negative (Negative) 08/16/24 08:29 Amorphous Sediment Not Reportable 08/16/24 08:29 Urine Opiates Screen Negative ng/mL (Negative) 08/16/24 08:29 Ur Barbiturates Screen Negative ng/mL (Negative) 08/16/24 08:29 Ur Phencyclidine Scrn Negative ng/mL (Negative) 08/16/24 08:29 Ur Amphetamines Screen Negative ng/mL (Negative) 08/16/24 08:29 U Benzodiazepines Scrn Negative ng/mL (Negative) 08/16/24 08:29 Urine Cocaine Screen Negative ng/mL (Negative) 08/16/24 08:29 U Marijuana (THC) Screen Positive ng/mL (Negative) H 08/16/24 08:29 Ethyl Alcohol < 10 mg/dL (0-10) 08/16/24 08:04 All radiology interpretation(s) finalized by discharge Discharge Plan Discharge Patient Disposition: Admitted As Inpatient Admit Provider: Khris Garcia Clinical Impression: Elevated troponin, Fibromyalgia, Allergy to alpha-gal, Leukocytosis Condition: Stable Coding Level of Care Code ED Rn Transplant for Kerry Kline
[2024-08-16 08:37] LABS: Troponin(5th) Baseline < 6 ng/L (0-10)
[2024-08-16 08:46] LABS: Alanine Aminotransferase 34 U/L (0-33); Albumin Level 4.9 g/dL (3.5-5.2); Alkaline Phosphatase 77 U/L (35-105); Anion Gap 27.7 (5-19); Aspartate Amino Transferase 13 U/L (0-32); Blood Urea Nitrogen 16 mg/dL (6-20); Calcium 10.1 mg/dL (8.5-10.5); Carbon Dioxide 19 mmol/L (22-29); Chloride 98 mmol/L (98-107); Creatinine Clr Calc Pharmacy 53.5506; Globulin 2.6 g/dL (1.3-4.6); Glucose 141 mg/dL (65-115); Osmolality Calculated 296 mOsm/kg (285-295); Potassium 3.7 mmol/L (3.5-5.1); Sodium 141 mmol/L (136-145); Thyroid Stimulating Hormone 1.14 uIU/mL (0.27-4.20); Total Bilirubin 0.5 mg/dL (0.15-1.2); Total Protein 7.5 g/dL (6.6-8.7)
[2024-08-16] MEDS: sodium chloride 0.9% 1,000 ML 999 ML IV (08:52)
[2024-08-16] MEDS: metoprolol tartrate 25 mg Tablet 12.5 MG PO (08:52)
[2024-08-16 08:53] LABS: Add Urine Microscopic? NO
[2024-08-16 09:01] LABS: Add Urine Culture? No; Bilirubin Urine Neg (Negative); Blood Urine Neg (Negative); Charge for UA Resulting for Rev; Glucose Urine UA Norm (Normal); Ketones Urine Negative (Negative); Leukocyte Esterase Urine Negative (Negative); Nitrate Urine Negative (Negative); Protein Urine Neg (Negative); Specific Gravity, Urine 1.005 (1.005-1.030); Urine Appearance Clear (CLEAR); Urine Color Yellow (Yellow); Urobilinogen Urine Norm (Negative); pH Urine 7 (5-7)
[2024-08-16 09:07] LABS: Amphetamines Screen Urine Negative (Negative); Barbiturates Screen Urine Negative (Negative); Benzodiazepines Screen Urine Negative (Negative); Cocaine Screen Urine Negative (Negative); Opiate Screen Urine Negative (Negative); PCP Screen Urine Negative (Negative); THC Screen Urine Positive (Negative)
[2024-08-16 09:09] LABS: Alcohol Level < 10 mg/dL (0-10)
--- NOTE | 2024-08-16 09:18 | XR_ITS ---
WS: [id number] XR chest 1V portable [id number] REASON FOR EXAM: dyspnea/cough FINDINGS: The chest is unchanged compared to the previous day. The heart and the mediastinum are within normal limits. Minimal calcified granulomatous disease bilaterally. No acute pulmonary parenchymal or pleural abnormality. XR/XR chest 1V portable [id number] IMPRESSION: Stable chest without acute abnormality.
--- NOTE | 2024-08-16 09:45 | PC.PHAR ---
Pt states [facility] is not her pharmacy and they did not have this medication in stock and had to order it. In conversation, pt reminded me she has alpha gal and some of the manufacturers of this medication use yellow dye. Pt will not be picking up without thorough investigation from her pharmacist, due to insecurity of its safety.
[2024-08-16 09:55] LABS: Lipase 43 U/L (13-60)
[2024-08-16 09:59] LABS: Lactic Sepsis W/Reflex 6.9 mmol/L (0.5-2.2)
[2024-08-16] MEDS: ketorolac 30 mg/mL INJ IVP (10:01)
[2024-08-16 10:02] LABS: Procalcitonin 0.03 ng/mL (0-0.5)
--- NOTE | 2024-08-16 10:03 | ECG_ITS ---
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 Measurements Intervals [place] Rate: 69 P: 62 [place]: 121 QRS: 71 QRSD: 77 T: 27 QT: 358 QTc: 385 Interpretive Statements SINUS RHYTHM Compared to ECG 08/16/2024 07:59:08 Sinus arrhythmia no longer present Short [place] interval no longer present ST (T wave) deviation no longer present Electronically Signed On 08-16-2024 10:22:32 CDT by Sy Broussard M.D. [email or web address] [id number]
[2024-08-16] MEDS: sodium chloride 0.9% 1,850.67 ML 1850.67 ML IV (10:32)
[2024-08-16] MEDS: piperacillin-tazobactam 3.375 GM in sodium chloride 0.9% (plus) 50 ML IV (10:32)
[2024-08-16 10:51] LABS: Troponin 5 2HR 11.14 ng/L (0-10); Troponin 5 2HR Delta 5.14001 ABS# (0-10)
[2024-08-16 11:16] LABS: Reflex Lactate Order REFLEX LACTIC ORDERD
[2024-08-16 11:21] LABS: D Dimer 0.36 ug/mLFEU (0-0.59)
[2024-08-16 11:34] LABS: NT Pro B Type Natriuretic Pept 304 pg/mL (0-125)
[2024-08-16 11:43] LABS: Lactic Acid level (Lactate) 1.9 mmol/L (0.5-2.2)
--- NOTE | 2024-08-16 14:03 | ECG_ITS ---
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 Measurements Intervals [place] Rate: 65 P: 65 MO: 130 QRS: 75 QRSD: 79 T: 39 QT: 365 QTc: 381 Interpretive Statements SINUS RHYTHM Compared to ECG 08/16/2024 10:18:27 No significant changes Electronically Signed On 08-18-2024 23:44:38 CDT by Myron Cooney M.D. [id number]
[2024-08-16 14:13] LABS: Troponin 5 6HR 9.83 ng/L (0-10); Troponin 5 6HR Delta 3.83001 ng/L (0-12)
--- NOTE | 2024-08-16 16:52 | PM.HP ---
Providers/Chief Complaint Admitting Physician: Khris Garcia Primary Care Provider: Sugar Stratton MD Chief Complaint: high hr History of Present Illness Carmen Stevenson is a 43 year old female hospitalized from emergency room where she presented due to palpitations, tachycardia this morning after she had hopped a fence to check up on her goats, feeling that her heart was racing. She states that she had discontinued metoprolol after her recent visit to ER after it was found that her heart rate was dropping down low. She additionally had recently stopped her tramadol, she states that last she took it was about a week ago, which was discontinued by her primary provider after she states has been on it for close to 20 years with history of fibromyalgia. She has alpha gal, although overall her condition has been progressing and she has been increasing the number of food items she has been able to consume up to 8. She did have an episode of vomiting this morning. She was given a prescription for meloxicam yesterday to help with her symptoms while being off of tramadol. She also received a dose of Solu-Medrol 125 mg. Review of Systems Const: Denies: fever(s), chills, body aches or malaise ENMT: Denies: throat pain Card: Denies: chest pain, edema, pre-syncope or dyspnea on exertion Resp: Denies: dyspnea, productive cough, change in phlegm color or hemoptysis GI: Reports: vomiting; Denies: abdominal pain, diarrhea, constipation, hematochezia or melena : Denies: flank pain, urinary frequency or hematuria Musc: Reports: other (Generalized aches and pains) Skin/Breast: Denies: rash or new lesions Neuro: Denies: headache(s) or confusion Medications/Allergies Home Medications ?Medication ?Instructions ?Recorded ?Confirmed ?Last Taken ?Type cetirizine 10 mg tablet 10 mg PO DAILY Allergies #90 tabs 01/19/24 08/16/24 08/16/24 Rx metoprolol tartrate 25 mg tablet 25 mg PO DAILY #90 tabs 02/19/24 08/16/24 08/15/24 Rx epinephrine 0.3 mg/0.3 mL 0.3 mg (0.3 mL) IM Q20M PRN 06/09/24 08/16/24 Unknown Rx injection, auto-injector anaphylaxis #3 ea tramadol 50 mg tablet 50 mg PO Q8H pain, moderate 30 07/12/24 08/16/24 08/16/24 Rx days #90 tabs chlorzoxazone 500 mg tablet 500 mg PO QID PRN Muscle Spasm 08/15/24 08/16/24 08/15/24 History pantoprazole 40 mg tablet,delayed 40 mg PO DAILY #30 tabs 08/15/24 08/16/24 08/16/24 Rx release (Protonix) Allergies Allergy/AdvReac Type Severity Reaction Status Date / Time nicolette Allergy Intermediate ALGY-Swell Verified 08/15/24 09:45 Lip/Tongue/Throat pineapple Allergy Intermediate ALGY-Rash Verified 08/15/24 09:45 squash Allergy Mild ALGY-Rash Verified 08/15/24 09:45 nut - unspecified Allergy Unknown Unknown Verified 08/15/24 09:45 acetaminophen Allergy Unknown Verified 08/15/24 09:45 Alpha-Gal Allergy Unknown Verified 08/15/24 09:45 (Xzryvndxj-Flclk-9,3-Gala diphenhydramine (From Allergy ALGY-Anaphy Verified 08/15/24 09:45 Benadryl) laxis egg Allergy ALGY-Anaphy Verified 08/15/24 09:45 laxis Influenza Virus Vaccines Allergy Unknown Verified 08/15/24 09:45 peppers Allergy Severe rash Uncoded 08/15/24 09:45 PFSH Acute PFSH: Medical History Nicotine dependence, cigarettes, in remission quit 2007 Encounter for chronic pain management Pain management contract signed 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 Palpitations takes metoprolol Pain and swelling of right upper extremity Phlebitis and thrombophlebitis Allergy to alpha-gal CKD (chronic kidney disease) stage 2, GFR 60-89 ml/min Allergic rhinitis due to allergen Hx of [place] spotted fever Hx of Lyme disease Anxiety and depression PTSD (post-traumatic stress disorder) COPD (chronic obstructive pulmonary disease) Dyslexia, developmental Head trauma HTN (hypertension) Fibromyalgia has been on tramadol for decades Asthma Surgical History History of surgical procedure on mouth infected tooth that resulted in complications Hx of lipoma large one from back of neck removed Hx of nephrolithotomy with removal of calculi 3 times; Hx of hernia repair R upper abdominal surgical hernia repair Hx of esophagogastroduodenoscopy multiple Hx of colonoscopy multiple--has had 6 so far Hx of appendectomy Hx of cholecystectomy Hx of pelvic surgery age 16--8hrs of surgery; PID--tubes, uterine tubes/bladder Hx of hysterectomy with oophorectomy Has left ovary in place; was removed for benign reasons Hx of resection of rib R 1st rib for thoracic outlet Family History Mother Thyroid disease Social History (Updated 08/16/24 @ 18:36 by Khris Garcia MD) Smoking and tobacco/nicotine status: former use of tobacco/nicotine Quit status (tobacco/nicotine): has quit using Year quit tobacco: 2007 Alcohol intake: never Substance/Drug Use: current Substance/Drug use type: Marijuana Marital status: Number of children: 0 Highest education level completed: 9th Grade Current occupational status: disabled 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, [employer], 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, [employer] Current gender identity: Female Vitals/I&O/Wt Last Vital Signs Temp 98.9 F 08/16/24 08:00 Pulse 73 08/16/24 16:03 Resp 16 08/16/24 16:03 BP 142/67 08/16/24 16:03 Pulse Ox 96 08/16/24 16:03 O2 Del Method Room Air 08/16/24 16:03 08/16/24 08/16/24 08/16/24 06:59 14:59 22:59 Intake Total 2900.67 / 2900.67 Balance 2900.67 / 2900.67 Weight last 48 hrs Weight 61.689 kg Physical Exam Narrative: Accompanied by her Const: COMMON NORMALS: patient oriented x3 and alert GENERAL APPEARANCE: cooperative ORIENTATION/CONSCIOUSNESS: Yes awake HENMT: COMMON NORMALS: oropharynx normal Neck/C-Spine: COMMON NORMALS: no JVD Resp: COMMON NORMALS: normal respiratory effort and clear to auscultation bilaterally AUSCULTATION: clear to auscultation bilaterally Cardio: COMMON NORMALS: no JVD, regular rhythm, S1 normal heart sound present, S2 normal heart sound present and No murmurs present (Cardio) RHYTHM: regular rhythm HEART SOUNDS: S1 normal heart sound present and S2 normal heart sound present GI: COMMON NORMALS: Normal to inspection, nondistended, normoactive bowel sounds present, Soft to palpation and non-tender PALPATION: Yes Soft to palpation Extremity: COMMON NORMALS: no joint enlargement and no pedal edema NARRATIVE EXTREMITY EXAM: No swelling, redness, tenderness right upper extremity, right upper extremity warm, perfused. Neuro: COMMON NORMALS: patient oriented x3 and moves all extremities SENSORIUM/ORIENTATION: Yes alert Skin: COMMON NORMALS: no rashes or lesions noted GENERAL SKIN EXAM: no rashes or lesions noted Data 08/16/24 08:04 08/16/24 08:04 Micro: Microbiology 08/16/24 10:20 Blood Culture - Preliminary Blood SPECIMEN COLLECTED 08/16/24 10:26 Blood Culture - Preliminary Blood SPECIMEN COLLECTED A&P Assessment and plan (1) Tachycardia: Tachycardia readmission, with palpitations, after metoprolol was discontinued, as well as physical activity jumping over a fence, running in the field. Currently without tachycardia, metoprolol was stopped yesterday due to bradycardia. She states had been on 50 mg of metoprolol. She states her dose was going to be decreased down to 25 mg. Will resume as per discussion with her and her of potential risk of bradycardia, with monitoring, at this time on 25 mg of metoprolol tartrate. Monitor on telemetry for arrhythmia. Monitor risk of tachycardia, bradycardia. With leukocytosis, tachycardia additionally assess influenza/RSV/COVID panel. Reviewed vitals, CBC, D-dimer, CMP, troponin, lipase, TSH, UA, UDS, chest x-ray, EKG, ER provider note, discussed with ER provider. Reports history of untreated Graves' disease. Reviewed TSH, normal. Otherwise without obvious sign of acute infection. Chest x-ray reviewed, without sign of pneumonia. UA reviewed, without sign of UTI. Had vomiting this morning, possible mild aspiration, now saturating well on room air. Monitor oxygenation. So far no additional vomiting. Trial of oral intake with clear liquid diet being mindful of allergies. possible withdrawal from tramadol? States she stopped the medication a week ago. Additionally she states that she gets very anxious around medical personnel, states that she has had multiple traumatic experiences with medical personnel and doctors in the past. Code 10 was called today shortly after arrival on cardiac stepdown unit. She states it was due to her becoming anxious after interaction with staff causing her to want to close the door and regain her privacy. She apologizes about her reaction. Her firearm was removed from the hospital and taken by her . She feels comfortable continuing the hospitalization with plans for further assessment overnight. She knows to let us know in case of any needs or changes. With possible tramadol withdrawal, resume at smaller dose 25 mg every 8 hours. Discussed with pharmacist, will give 2 doses scheduled, subsequently switched to as needed, continue weaning off, and as per discussion she will need to set up and follow-up with her primary provider which she intends to do. (2) Leukocytosis: Discussed with her and her . At this time unclear cause of leukocytosis. She did receive a dose of 125 mg of Solu-Medrol. Otherwise without sign of pneumonia, UTI, did have an episode of vomiting, possibly after NSAID and/or steroid. Trial of clear liquid, reassess. Reassess oxygenation. Will obtain COVID/flu/RSV PCR. Repeat CBC. 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 Discussed with her clinically does not appear to have swelling, redness, or signs of lack of perfusion of right upper extremity. Blood cultures been collected, follow-up. Plan Lactic acidosis: Possibly after physical activity, jumping over fences, running in the field. Possibly following vomiting. Abdomen otherwise soft, nontender, benign. No further vomiting. Will reassess lactic acid. Currently without possible source of infection, clinical picture overall not suggestive of sepsis, however, with leukocytosis, as well as reported tachycardia. Will reassess. 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 States had stopped tramadol CKD: Reassess chemistry HTN: Monitor blood pressure Other medical problems PDMP PDMP Reviewed: Not Reviewed Attestations Medical Necessity Statement*: Please observation for additional assessment after tachycardia and palpitations, after medication change, as well as with noted leukocytosis, possible medication withdrawal from tramadol, and LAD with multiple comorbidities. and High MDM includes amount and/or complexity of data reviewed/ordered [ previous or external records, resulted lab(s)/test(s), ordered lab(s)/test(s) and other healthcare professional discussion] and described risk of complication, morbidity or mortality of management as documented Diagnoses Tachycardia R00.0 Leukocytosis D72.829
--- NOTE | 2024-08-16 17:05 | USCV_ITS ---
Carmen Stevenson Age: 43 Gender: F : 1980 Exam Date: 08/16/2024 21:52 Ordering Phys: Khris Garcia MD Technologist: GRACE [place] [facility] [place]: palpitations, mild troponin elevation BP: 142 / 67 HR: 88 Rhythm: Sinus Technical Quality: Good MEASUREMENTS (Male / Female) Normal Values 2D ECHO LV Diastolic Diameter PLAX 3.7 cm 4.2 - 5.9 / 3.9 - 5.3 cm IVS Diastolic Thickness 1.4 cm 0.6 - 1.0 / 0.6 - 0.9 cm IVS Systolic Thickness 1.8 cm LVPW Diastolic Thickness 1.3 cm 0.6 - 1.0 / 0.6 - 0.9 cm LVPW Systolic Thickness 1.6 cm LVOT Diameter 1.9 cm LV Ejection Fraction 2D Teich 65.2 % LV Ejection Fraction MOD 4C 71.7 % LV Ejection Fraction MOD 2C 71.3 % LV Ejection Fraction 2C AL 71.9 % LA Diameter 3.4 cm Aorta at Sinotubular Diameter 2.7 cm IVC Diameter 1.3 cm M-MODE LA Ao Ratio MM 1.5 AV Cusp Separation MM 1.6 cm DOPPLER AV Peak Velocity 140.0 cm/s LVOT Peak Velocity 123.0 cm/s AV Area Cont Eq vti 2.3 cm squared AV Area Cont Eq pk 2.5 cm squared MV Peak Velocity 140.0 cm/s MV Area PHT 5.6 cm squared Mitral E to A Ratio 1.3 TR Peak Velocity 246.0 cm/s TR Peak Gradient 24.2 mmHg TV Peak E Velocity 60.0 cm/s PV Peak Velocity 108.0 cm/s FINDINGS Left Ventricle Normal left ventricular size and systolic function, EF 71%. Mild left ventricular hypertrophy. No regional wall motion abnormalities. Right Ventricle The right ventricle is normal in size and function. Right Atrium The right atrium is normal in size. Left Atrium The left atrium is normal in size. Mitral Valve No gross abnormalities noted Aortic Valve No gross abnormalities noted Tricuspid Valve Trace of tricuspid valve regurgitation. Pulmonic Valve No gross abnormalities noted Pericardium Normal pericardium without effusion. Aorta Normal ascending aorta dimension. IVC Normal inferior vena cava. CONCLUSIONS Normal left ventricular size and systolic function, EF 71%. Mild left ventricular hypertrophy. No regional wall motion abnormalities. Trace of tricuspid valve regurgitation. Normal cardiac chamber sizes. There is no pericardial effusion. There are no intracardiac masses. No similar previous studies are available for comparison Dr Myron Cooney MD FAC (Electronically Signed) Final Date: 17 Aug 2024 14:10 S
--- NOTE | 2024-08-16 17:41 | PC.NURSE ---
Received pt from ER Pt was up in room with her , this nurse is accompanied by security. pt started to scream at the security staff ady, and mad at him and started taking off her gown in front of nurse and security, verbalizing, I am not a criminal, why you are following me, I don't have a privacy, you are going to give me a heart attack. yelled and scream at the security specialist and close the door with this nurse still in the room trying to help patient calm down. Security called code [id number]. Nurse open the door and able to get out of the room safely.
--- NOTE | 2024-08-16 18:34 | USCV_ITS ---
Carmen Stevenson Age: 43 Gender: F : 1980 Exam Date: 08/16/2024 22:29 Ordering Phys: Khris Garcia MD Technologist: GRACE Exam Location: [facility] [place] Indication: assess for DVT HISTORY: assess for DVT PROCEDURES: Venous duplex imaging was performed in only the right upper extremity. The following venous structures were evaluated: internal jugular vein, subclavian vein, axillary vein, and brachial veins. In addition, the basilic vein, cephalic vein, radial vein, and ulnar vein. Serial compression, augmentation maneuvers, and spectral Doppler flow evaluation were performed, which were normal. No evidence of thrombus noted. . CONCLUSIONS No evidence of thrombus of the right upper extremity veins. Jasen Diane MD (Electronically Signed) Final Date: 17 Aug 2024 10:12 S
[2024-08-16] MEDS: TRAMadol 50 mg Tablet 25 MG PO (19:34)
[2024-08-16] MEDS: pantoprazole DR 40 mg Tablet PO (19:37)
[2024-08-16 19:41] LABS: Lactate (Lactic Acid level) 1.4 mmol/L (0.5-2.2)
--- NOTE | 2024-08-16 20:26 | PC.NURSE ---
pt refused meal trays made a note for kitchen prior to going to pt's room.
[2024-08-17] VITALS: BP 128/78; PULSE 84; RESP 23; TEMP 37; O2SAT 97
[2024-08-17] MEDS: TRAMadol 50 mg Tablet 25 MG PO ×2 (01:55→08:23)
[2024-08-17 04:00] VITALS: BP 134/73; PULSE 82; RESP 8; TEMP 36.8; O2SAT 96
[2024-08-17 08:00] VITALS: BP 124/92; PULSE 76; RESP 12; TEMP 36.4
[2024-08-17] MEDS: cetirizine 10 mg Tablet PO (08:18)
[2024-08-17] MEDS: pantoprazole DR 40 mg Tablet PO (08:18)
[2024-08-17] MEDS: metoprolol tartrate 25 mg Tablet PO (08:18)
--- NOTE | 2024-08-17 10:13 | PC.CHAP ---
Pastoral Care Encounter/Spiritual Assessment Type of Contact [] Declined software installer visit [] Patient/Family/Request visit [] Outpatient visit [] Follow-up visit [] Physician referral [] Code/Alert [x] Routine visit [] Staff referral [] Actively dying [] Patient sleeping [] Family support [] [] Out of room [] Palliative care [] [] Receiving care in room [] Pre-surgical visit [] Trauma [] Long length of stay [] ICU visit [] Other: Relational/Emotional Strength [x] Patient feels connected with others/family/visitors/staff [] Distress [] Loneliness/isolation [] Abandonment Spirituality of Patient [x] Person of Shante [x] Attends Congregational of their Shante [x] Believes in Prayer [x] Reads Bible or Taoism materials [] There are Spiritual issues to be addressed Pot Fluxer Interventions [x] Prayer [x] Active listening [x] Non-anxious presence [x] Spiritual/emotional support [] Crisis/trauma care [] Spiritual counseling [] Bereavement support [] Provided bereavement packet [] Provided Bible/devotional materials [] Provided toy/stuffed animal, coloring book to patient or family member [] Provided Communion [] Anointing/[place] [] Salvation [x] Completed spiritual assessment [] Other: Impact on Illness or Injury [] Angry [] Fearful [] Anxious [] Often cries [] Exhaustion [] Unable to work [] Unable to attend anglican [] Unable to walk/stand [] Unable to read [] Unable to drive [] Unable to eat/drink [] Unable to sleep [] Unable to be with family [] Patient intubated [] Other: Summary Time spent with patient 5 min
[2024-08-17 12:00] VITALS: BP 142/85; PULSE 78; RESP 11; TEMP 36.6; O2SAT 98
--- NOTE | 2024-08-17 14:33 | P.DS_ITS ---
Discharge Providers Date of Admission: 08/16/24 16:56 Date of Discharge: August 17, 2024 Attending Provider at Admission: Khris Garcia Attending Provider at Discharge: Khris Garcia Primary Care Provider: Sugar Stratton MD Diagnoses at Discharge Discharge Diagnosis (1) Tachycardia: Status: Acute (2) Leukocytosis: Status: Acute Reason for Visit Reason for Visit: high hr Brief History: Carmen Stevenson is a 43 year old female hospitalized from emergency room where she presented due to palpitations, tachycardia this morning after she had hopped a fence to check up on her goats, feeling that her heart was racing. She states that she had discontinued metoprolol after her recent visit to ER after it was found that her heart rate was dropping down low. She additionally had recently stopped her tramadol, she states that last she took it was about a week ago, which was discontinued by her primary provider after she states has been on it for close to 20 years with history of fibromyalgia. She has alpha gal, although overall her condition has been progressing and she has been increasing the number of food items she has been able to consume up to 8. She did have an episode of vomiting this morning. She was given a prescription for meloxicam yesterday to help with her symptoms while being off of tramadol. She also received a dose of Solu-Medrol 125 mg. Hospital Course Hospital Course She was taken for observation to the hospital, maintain with bowel rest, antiemetic as needed, without return of vomiting. She also had a bowel movement after having constipation. She has tolerated trial of clear liquids, today she is feeling much better. Bladder could not be obtained due to difficulties with peripheral access. She was worried about some bruising, however, on examination with her nurse it appears just some veins visible through the skin. 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 On presentation with tachycardia after her metoprolol had been discontinued and after physical activity. Was resumed on low-dose metoprolol 25 mg. Monitor on telemetry, without finding of bradycardia. Echocardiogram was unremarkable. Lactic acidosis resolved. She is agreeable for secured entrance monitor which is requested after discussion with cardiology. She is asked to follow-up with primary provider, she would like to reestablish care and is set up with a different primary provider. Physical Exam Const: COMMON NORMALS: patient oriented x3 and alert GENERAL APPEARANCE: cooperative ORIENTATION/CONSCIOUSNESS: Yes awake HENMT: COMMON NORMALS: oropharynx normal Neck/C-Spine: COMMON NORMALS: no JVD Resp: COMMON NORMALS: normal respiratory effort and clear to auscultation bilaterally AUSCULTATION: clear to auscultation bilaterally Cardio: COMMON NORMALS: no JVD, regular rhythm, S1 normal heart sound present, S2 normal heart sound present and No murmurs present (Cardio) RHYTHM: regular rhythm HEART SOUNDS: S1 normal heart sound present and S2 normal heart sound present GI: COMMON NORMALS: Normal to inspection, nondistended, normoactive bowel sounds present, Soft to palpation and non-tender PALPATION: Yes Soft to palpation Extremity: COMMON NORMALS: no joint enlargement and no pedal edema Neuro: COMMON NORMALS: patient oriented x3 and moves all extremities SENSORIUM/ORIENTATION: Yes alert Skin: COMMON NORMALS: no rashes or lesions noted GENERAL SKIN EXAM: no rashes or lesions noted Discharge Data Studies Completed and Pending Completed Studies During Hospitalization Category Date Time Status XR chest 1V portable [id number] Stat Exams 08/16/24 09:18 Completed CV. echo complete* [id number] Routine Ultrasound 08/16/24 17:05 Completed US venous duplex upper extremity RT [CV venous duplex Ultrasound 08/16/24 18:34 [place] [id number]] Routine Pending at discharge Category Date Time Status Blood Culture Stat Lab 08/16/24 10:20 Results Complete Blood Count w/Auto AM LABS Lab 08/17/24 04:00 Ordered Complete Blood Count w/Auto AM LABS Lab 08/18/24 04:00 Ordered Complete Blood Count w/Auto AM LABS Lab 08/19/24 04:00 Ordered Comprehensive Metabolic Panel AM LABS Lab 08/17/24 04:00 Ordered Comprehensive Metabolic Panel AM LABS Lab 08/18/24 04:00 Ordered Comprehensive Metabolic Panel AM LABS Lab 08/19/24 04:00 Ordered Covid / Flu / RSV PCR Routine Lab 08/16/24 18:00 Uncollected Radiology Impressions Chest X-Ray 08/16/24 09:18 IMPRESSION: Stable chest without acute abnormality. Laboratory Results WBC 21.24 10^3/uL (3.29-11.43) H 08/16/24 08:04 RBC 4.44 10^6/uL (3.85-5.65) 08/16/24 08:04 Hgb 14.80 g/dL (11.27-16.99) 08/16/24 08:04 Hct 42.8 % (36-47) 08/16/24 08:04 MCV 96.4 fl (85-98) 08/16/24 08:04 MCH 33.3 pg (27-33) H 08/16/24 08:04 MCHC 34.6 g/dL (30-55) 08/16/24 08:04 RDW 13.2 % (12.1-15.1) 08/16/24 08:04 Plt Count 221 10^3/cmm (157-399) 08/16/24 08:04 MPV 10.1 fL (7.4-10.4) 08/16/24 08:04 Neut % (Auto) 83.0 % 08/16/24 08:04 Lymph % (Auto) 9.7 % 08/16/24 08:04 [place] % (Auto) 6.2 % 08/16/24 08:04 Eos % (Auto) 0.0 % 08/16/24 08:04 Baso % (Auto) 0.2 % 08/16/24 08:04 Neut # (Auto) 17.64 10^3/uL (1.8-7.7) H 08/16/24 08:04 Lymph # (Auto) 2.1 10^3/uL (0.8-4.8) 08/16/24 08:04 Curry # (Auto) 1.3 10^3/uL (0.2-0.9) H 08/16/24 08:04 Eos # (Auto) 0.0 10^3/uL (0.0-0.8) 08/16/24 08:04 Baso # (Auto) 0.0 10^3/uL (0.0-0.1) 08/16/24 08:04 Nucleated RBC % (auto) 0 % 08/16/24 08:04 Nucleated RBCs # 0.0 /100WBC 08/16/24 08:04 D-Dimer 0.36 ug/mLFEU (0-0.59) 08/16/24 05:15 Sodium 141 mmol/L (136-145) 08/16/24 08:04 Potassium 3.7 mmol/L (3.5-5.1) 08/16/24 08:04 Chloride 98 mmol/L (98-107) 08/16/24 08:04 Carbon Dioxide 19 mmol/L (22-29) L 08/16/24 08:04 Anion Gap 27.7 (5-19) H 08/16/24 08:04 BUN 16 mg/dL (6-20) 08/16/24 08:04 Creatinine 1.1 mg/dL (0.5-0.9) H 08/16/24 08:04 GFR Calculation 54.0 mL/min (90-130) L 08/16/24 08:04 Glucose 141 mg/dL (65-115) H 08/16/24 08:04 Calculated Osmolality 296 mOsm/kg (285-295) H 08/16/24 08:04 Lactic Acid 6.9 mmol/L (0.5-2.2) H* 08/16/24 08:04 Lactic Acid (Sepsis) 1.9 mmol/L (0.5-2.2) 08/16/24 11:21 Lactate 1.4 mmol/L (0.5-2.2) 08/16/24 19:19 Calcium 10.1 mg/dL (8.5-10.5) 08/16/24 08:04 Total Bilirubin 0.5 mg/dL (0.15-1.2) 08/16/24 08:04 AST 13 U/L (0-32) 08/16/24 08:04 ALT 34 U/L (0-33) H 08/16/24 08:04 Alkaline Phosphatase 77 U/L (35-105) 08/16/24 08:04 Troponin T Baseline < 6 ng/L (0-10) 08/16/24 08:04 Troponin T 120 Minute 11.14 ng/L (0-10) H 08/16/24 10:20 Delta Troponin T 5.17149 ABS# (0-10) 08/16/24 10:20 Troponin T Hi Sens 6Hr 9.83 ng/L (0-10) 08/16/24 13:41 Troponin T Hi Sens 6Hr Delta 3.10159 ng/L (0-12) 08/16/24 13:41 NT-Pro-B Natriuret Pep 304 pg/mL (0-125) H 08/16/24 08:04 Total Protein 7.5 g/dL (6.6-8.7) 08/16/24 08:04 Albumin 4.9 g/dL (3.5-5.2) 08/16/24 08:04 Globulin 2.6 g/dL (1.3-4.6) 08/16/24 08:04 Lipase 43 U/L (13-60) 08/16/24 08:04 Procalcitonin 0.03 ng/mL (0-0.5) 08/16/24 08:04 TSH 1.14 uIU/mL (0.27-4.20) 08/16/24 08:04 Urine Color Yellow (Yellow) 08/16/24 08: Urine Appearance Clear (CLEAR) 08/16/24 08:29 Urine pH 7 (5-7) 08/16/24 08:29 Ur Specific [place] 1.005 (1.005-1.030) 08/16/24 08:29 Urine Protein Neg (Negative) 08/16/24 08:29 Urine Glucose (UA) Norm (Normal) 08/16/24 08:29 Urine Ketones Negative (Negative) 08/16/24 08:29 Urine Blood Neg (Negative) 08/16/24 08:29 Urine Nitrate Negative (Negative) 08/16/24 08:29 Urine Bilirubin Neg (Negative) 08/16/24 08:29 Urine Urobilinogen Norm mg/dL (Negative) 08/16/24 08:29 Ur Leukocyte Esterase Negative (Negative) 08/16/24 08:29 Amorphous Sediment Not Reportable 08/16/24 08:29 Urine Opiates Screen Negative ng/mL (Negative) 08/16/24 08:29 Ur Barbiturates Screen Negative ng/mL (Negative) 08/16/24 08:29 Ur Phencyclidine Scrn Negative ng/mL (Negative) 08/16/24 08:29 Ur Amphetamines Screen Negative ng/mL (Negative) 08/16/24 08:29 U Benzodiazepines Scrn Negative ng/mL (Negative) 08/16/24 08:29 Urine Cocaine Screen Negative ng/mL (Negative) 08/16/24 08:29 U Marijuana (THC) Screen Positive ng/mL (Negative) H 08/16/24 08:29 Ethyl Alcohol < 10 mg/dL (0-10) 08/16/24 08:04 Vitals Last Vital Signs Temp 97.9 F 08/17/24 12:00 Pulse 78 08/17/24 12:00 Resp 11 L 08/17/24 12:00 BP 142/85 08/17/24 12:00 Pulse Ox 98 08/17/24 12:00 O2 Del Method Room Air 08/17/24 12:00 Discharge Plan Discharge Patient Disposition: Home Condition: Stable Prescriptions: Continued cetirizine 10 mg tablet 10 mg PO DAILY Qty: 90 3RF metoprolol tartrate 25 mg tablet 25 mg PO DAILY Qty: 90 3RF epinephrine 0.3 mg/0.3 mL auto-injector 0.3 mg IM Q20M PRN (Reason: anaphylaxis) Qty: 3 3RF Rx Instructions: until response tramadol 50 mg tablet 50 mg PO Q8H 30 Days Qty: 90 0RF Rx Instructions: Refill on or after 30 day intervals chlorzoxazone 500 mg tablet 500 mg PO QID PRN (Reason: Muscle Spasm) pantoprazole [Protonix] 40 mg tablet,delayed release (DR/EC) 40 mg PO DAILY Qty: 30 0RF Discharge Orders: Discharge Order (Routine); Ordered 08/17/24 Ordered By: Khris Garcia Other Ambulatory Orders: ECG holter monitor 14 Days (Routine) Timeframe: 1 Day Facility: [facility] - Location: Radiology Ordered By: Khris Garcia Referrals: Mae Villarreal [Referring, Family Practice] - 4-7 days Referral Note: Please keep your appointment as scheduled. Discharge Diet: Advance as tolerated Discharge Activity: Increase activity as tolerated Patient Instructions: Opioid Safety Activity Restrictions/Additional Instructions: Please follow-up with your primary doctor for reassessment. Continue at reduced dose of metoprolol 25 mg. Complete secured entrance monitor. Follow-up with primary doctor to discuss the results. Seek medical attention in case of worsening or new concerning symptoms. Discharge Attestations Time Spent in Discharge Care*: greater than 30 min Quality Metrics Clinical Quality Measures [ No reported AMI, CVA or VTE this stay] Coding Level of Care Code 51599 Total time (in minutes) for Discharge: 50 Diagnoses Tachycardia R00.0 Leukocytosis D72.829
[2024-08-17 15:02] VITALS: BP 142/85; PULSE 72; RESP 16; TEMP 36.4; O2SAT 92
--- NOTE | 2024-08-17 16:36 | PC.NURSE ---
patient and patient's were told about how to use the holter monitor and what number to call if they had questions. Patient verbalized understanding. Some medications delivered to patient's bedside and some were called in to [facility].
== END 2024-08-17 16:37 | disposition home or self-care (01) ==
LOC: ER 08:31 → CSU 16:12 → ER IP 08-17 06:44
PROVIDERS: Admitting Provider Internal Medicine; Emergency Provider Family Medicine; PCP Family Medicine; Visit Provider Internal Medicine
DX: R00.0 Tachycardia, unspecified (principal); D72.829 Elevated white blood cell count, unspecified; K21.9 Gastro-esophageal reflux disease without esophagitis; Z91.014 Allergy to mammalian meats; Z86.69 Personal history of other diseases of the nervous system and sense organs; E06.3 Autoimmune thyroiditis; I12.9 Hypertensive chronic kidney disease with stage 1 through stage 4 chronic kidney disease, or unspecified chronic kidney disease; N18.2 Chronic kidney disease, stage 2 (mild); J44.9 Chronic obstructive pulmonary disease, unspecified; F43.10 Post-traumatic stress disorder, unspecified; Z87.891 Personal history of nicotine dependence
CPT/HCPCS: 36415; 71045; 80053; 80306; 80307; 81003; 83605; 83690; 83880; 84145; 84443; 84484; 85025; 85378; 87040; 93005; 93306; 93971; 96365; 96375; 99285; G0378; J1885; J2543; J7030; J9999

== ENCOUNTER 2024-10-26 11:09 | Emergency (ER) | payer MEDICARE, SELFPAY ==
--- NOTE | 2024-10-26 11:12 | CT_ITS ---
WS: [id number] CT HEAD TECHNIQUE: Noncontrast CT of the head obtained from the skullbase to the vertex. CLINICAL INFORMATION: weakness COMPARISON: 2020 DLP: 970.[address] scans at [facility] use at least one of these dose optimization techniques: automated exposure control; mA and/or kV adjustment per patient size (includes targeted exams where dose is matched to clinical indication); or iterative reconstruction. FINDINGS: No evidence of intracranial hemorrhage or mass effect. Ventricular system and basal cisterns are patent. No extra-axial fluid collections. No evidence of mass or mass effect. Normal gaytan-white differentiation. Mild mucosal thickening LEFT frontal ethmoidal recess. Mastoid air cells are well aerated. CT/CT head wo con* [id number] IMPRESSION: 1. No evidence of intracranial hemorrhage or mass effect. 2. No acute intracranial findings.
--- NOTE | 2024-10-26 11:21 | ED_ITS ---
HPI - General Adult 2 General: Chief complaint: General Medical Stated complaint: N/V vision issues Time Seen by Provider: 10/26/24 11:09 Source: patient and EMS Mode of arrival: EMS Limitations: no limitations History of Present Illness: 43-year-old female history of alpha gal states she ate this morning and then she stated she started feeling short of breath was having chest pain she states she also like she had some blurred vision and was shaking. States she also been having low back pain. She denies any vomiting diarrhea denies any focal weaknesses. Associated symptoms: Reports chest pain, dyspnea and headache(s); Deny nausea, rash or vomiting Related Data Home Medications ?Medication ?Instructions ?Recorded ?Confirmed chlorzoxazone 500 mg tablet 500 mg PO QID PRN Muscle S pasm 08/15/24 08/16/24 Previous Rx's ?Medication ?Instructions ?Recorded cetirizine 10 mg tablet 10 mg PO DAILY Allergies #90 tabs 01/19/24 metoprolol tartrate 25 mg tablet 25 mg PO DAILY #90 ta bs 02/19/24 epinephrine 0.3 mg/0.3 mL 0.3 mg (0.3 mL) IM Q20M PRN 06/09/24 injection, auto-injector anaphylaxis #3 ea tramadol 50 mg tablet 50 mg PO Q8H pain, moderate 30 07/12/24 days #90 tabs pantoprazole 40 mg tablet,delayed 40 mg PO DAILY #30 t abs 08/15/24 release (Protonix) Allergies Allergy/AdvReac Type Severity Reaction Status Date / Time nicolette Allergy Intermediate ALGY-Swell Verified 08/15/24 09:45 Lip/Tongue/Throat pineapple Allergy Intermediate ALGY-Rash Verified 08/15/24 09:45 squash Allergy Mild ALGY-Rash Verified 08/15/24 09:45 nut - unspecified Allergy Unknown Unknown Verified 08/15/24 09:45 acetaminophen Allergy Unknown Verified 08/15/24 09:45 Alpha-Gal Allergy Unknown Verified 08/15/24 09:45 (Zvbsloeuq-Illaq-0,3-Gala aspartame Allergy ALGY-Anaphy Verified 08/16/24 20:29 laxis diphenhydramine (From Allergy ALGY-Anaphy Verified 08/15/24 09:45 Benadryl) laxis egg Allergy ALGY-Anaphy Verified 08/15/24 09:45 laxis famotidine (From Pepcid) Allergy ALGY-Anaphy Verified 08/16/24 20:29 laxis Influenza Virus Vaccines Allergy Unknown Verified 08/15/24 09:45 shellfish derived Allergy ALGY-Anaphy Verified 08/16/24 20:29 laxis peppers Allergy Severe rash Uncoded 08/15/24 09:45 Review of Systems 2 Const: Denies: fever(s), chills, body aches or change in appetite Eyes: Reports: blurry vision; Denies: eye discomfort ENMT: Denies: throat pain or dental pain Card: Reports: chest pain Resp: Reports: dyspnea GI: Denies: abdominal pain, nausea, vomiting or diarrhea Musc: Denies: neck pain or back pain Skin/Breast: Denies: rash Neuro: Reports: headache(s) and weakness in extremities PFSH ED 2 PFSH: Medical History Nicotine dependence, cigarettes, in remission quit 2007 Encounter for chronic pain management Pain management contract signed 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 Palpitations takes metoprolol Pain and swelling of right upper extremity Phlebitis and thrombophlebitis Allergy to alpha-gal CKD (chronic kidney disease) stage 2, GFR 60-89 ml/min Allergic rhinitis due to allergen Hx of [place] spotted fever Hx of Lyme disease Anxiety and depression PTSD (post-traumatic stress disorder) COPD (chronic obstructive pulmonary disease) Dyslexia, developmental Head trauma HTN (hypertension) Fibromyalgia has been on tramadol for decades Asthma Surgical History History of surgical procedure on mouth infected tooth that resulted in complications Hx of lipoma large one from back of neck removed Hx of nephrolithotomy with removal of calculi 3 times; Hx of hernia repair R upper abdominal surgical hernia repair Hx of esophagogastroduodenoscopy multiple Hx of colonoscopy multiple--has had 6 so far Hx of appendectomy Hx of cholecystectomy Hx of pelvic surgery age 16--8hrs of surgery; PID--tubes, uterine tubes/bladder Hx of hysterectomy with oophorectomy Has left ovary in place; was removed for benign reasons Hx of resection of rib R 1st rib for thoracic outlet Family History Mother Thyroid disease Social History Smoking and tobacco/nicotine status: former use of tobacco/nicotine Quit status (tobacco/nicotine): has quit using Year quit tobacco: 2007 Alcohol intake: never Substance/Drug Use: current Marital status: Number of children: 0 Highest education level completed: 9th Grade Current occupational status: disabled 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, 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, 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, [employer] Current gender identity: Female Physical Exam 2 Const: COMMON NORMALS: no acute distress, patient oriented x3 and healthy appearing HENMT: COMMON NORMALS: normocephalic and atraumatic HEAD & SCALP: n ormocephalic and atraumatic Eye: COMMON NORMALS: Equal, round and reactive pupils present and EOMs intact bilaterally PUPIL: Yes Equal, round and reactive pupils present Neck/C-Spine: COMMON NORMALS: full ROM and supple Chest: COMMONS NORMALS: normal inspection of the chest and normal palpation of entire chest wall Resp: COMMON NORMALS: normal respiratory effort, No retractions, No use of accessory muscles and clear to auscultation bilaterally AUSCULTATION: clear to auscultation bilaterally Cardio: COMMON NORMALS: regular rate, regular rhythm and No murmurs present (Cardio) RATE: regular rate RHYTHM: regular rhythm GI: COMMON NORMALS: Normal to inspection, nondistended, normoactive bowel sounds present, Soft to palpation, non-tender and no masses PALPATION: Yes Soft to palpation Extremity: COMMON NORMALS: normal to inspection and full ROM Neuro: COMMON NORMALS: patient oriented x3, moves all extremities and no focal motor deficits Psych: COMMON NORMALS: mental status grossly normal, Normal thought process present and cooperative THOUGHT PROCESS: Normal thought process present Skin: COMMON NORMALS: no rashes or lesions noted and no wounds GENERAL SKIN EXAM: no rashes or lesions noted [facility] - General Adult Medical Decision Making Patient presents here with likely allergic reaction she feels much improved here blood work. Imaging is all normal she is stable for discharge follow-up PCP return if worsening. Medical Records I reviewed the patient's medical records. Lab Data I reviewed the patient's lab results. 10/26/24 11:25 10/26/24 11:[address] 10/26/24 11:12 IMPRESSION: 1. No evidence of intracranial hemorrhage or mass effect. 2. No acute intracranial findings. Laboratory Results WBC 7.75 10^3/uL (3.29-11.43) 10/26/24 11: RBC 4.27 10^6/uL (3.85-5.65) 10/26/24 11:25 Hgb 13.60 g/dL (11.27-16.99) 10/26/24 11:25 Hct 40.1 % (36-47) 10/26/24 11:25 MCV 93.9 fl (85-98) 10/26/24 11:25 MCH 31.9 pg (27-33) 10/26/24 11:25 MCHC 33.9 g/dL (30-55) 10/26/24 11: RDW 12.6 % (12.1-15.1) 10/26/24 11: Plt Count 194 10^3/cmm (157-399) 10/26/24 11:25 MPV 9.1 fL (7.4-10.4) 10/26/24 11:25 Neut % (Auto) 55.9 % 10/26/24 11:25 Lymph % (Auto) 35.1 % 10/26/24 11:25 [place] % (Auto) 6.7 % 10/26/24 11:25 Eos % (Auto) 1.3 % 10/26/24 11:25 Baso % (Auto) 0.5 % 10/26/24 11:25 Neut # (Auto) 4.33 10^3/uL (1.8-7.7) 10/26/24 11:25 Lymph # (Auto) 2.7 10^3/uL (0.8-4.8) 10/26/24 11:25 [place] # (Auto) 0.5 10^3/uL (0.2-0.9) 10/26/24 11:25 Eos # (Auto) 0.1 10^3/uL (0.0-0.8) 10/26/24 11:25 Baso # (Auto) 0.0 10^3/uL (0.0-0.1) 10/26/24 11:25 Nucleated RBC % (auto) 0 % 10/26/24 11:25 Nucleated RBCs # 0.0 /100WBC 10/26/24 11:25 Sodium 138 mmol/L (136-145) 10/26/24 11:25 Potassium 3.7 mmol/L (3.5-5.1) 10/26/24 11:25 Chloride 100 mmol/L (98-107) 10/26/24 11:25 Carbon Dioxide 24 mmol/L (22-29) 10/26/24 11:25 Anion Gap 17.7 (5-19) 10/26/24 11:25 BUN 8 mg/dL (6-20) 10/26/24 11:25 Creatinine 1.0 mg/dL (0.5-0.9) H 10/26/24 11:25 GFR Calculation 60.2 mL/min (90-130) L 10/26/24 11:25 Glucose 117 mg/dL (65-115) H 10/26/24 11:25 Calculated Osmolality 285 mOsm/kg (285-295) 10/26/24 11:25 Calcium 9.0 mg/dL (8.5-10.5) 10/26/24 11:25 Total Bilirubin 0.5 mg/dL (0.15-1.2) 10/26/24 11:25 AST 20 U/L (0-32) 10/26/24 11:25 ALT 33 U/L (0-33) 10/26/24 11:25 Alkaline Phosphatase 71 U/L (35-105) 10/26/24 11:25 Troponin T Baseline < 6 ng/L (0-10) 10/26/24 11:25 Total Protein 6.9 g/dL (6.6-8.7) 10/26/24 11:25 Albumin 4.5 g/dL (3.5-5.2) 10/26/24 11:25 Globulin 2.4 g/dL (1.3-4.6) 10/26/24 11:25 Lipase 48 U/L (13-60) 10/26/24 11:25 TSH 1.89 uIU/mL (0.27-4.20) 10/26/24 11:25 HCG, Qual Negative (Negative) 10/26/24 11:25 All radiology interpretation(s) finalized by discharge EKG Data EKG 1: I personally reviewed and interpreted this EKG as follows: EKG interpretation date: 10/26/24 EKG interpretation time: 11:23 Interpretation: nsr hr [address] elevation qrs 77 qtc 385 Computer generated interpretation: Head CT 10/26/24 11:12 IMPRESSION: 1. No evidence of intracranial hemorrhage or mass effect. 2. No acute intracranial findings. Discharge Plan Discharge Patient Disposition: Home Clinical Impression: Allergic reaction Condition: Stable Prescriptions: No Action cetirizine 10 mg tablet 10 mg PO DAILY Qty: 90 3RF metoprolol tartrate 25 mg tablet 25 mg PO DAILY Qty: 90 3RF epinephrine 0.3 mg/0.3 mL auto-injector 0.3 mg IM Q20M PRN (Reason: anaphylaxis) Qty: 3 3RF Rx Instructions: until response tramadol 50 mg tablet 50 mg PO Q8H 30 Days Qty: 90 0RF Rx Instructions: Refill on or after 30 day intervals chlorzoxazone 500 mg tablet 500 mg PO QID PRN (Reason: Muscle Spasm) pantoprazole [Protonix] 40 mg tablet,delayed release (DR/EC) 40 mg PO DAILY Qty: 30 0RF Discharge Orders: Discharge ED (Routine); Ordered 10/26/24 Ordered By: Lynne Hurtado Referrals: Sugar Stratton MD [Primary Care Provider, Family Practice] - 4-7 days Discharge Diet: Advance as tolerated Discharge Activity: Resume usual activity Patient Instructions: General Allergic Reaction (ED) Print Language: Citizen Of [place] Coding Level of Care Code ED Amf Mechanic for Kerry Kline
--- NOTE | 2024-10-26 11:23 | ECG_ITS ---
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 Measurements Intervals [place]anchard Rate: 90 P: 50 NM: 124 QRS: 63 QRSD: 77 T: 25 QT: 337 QTc: 414 Interpretive Statements SINUS RHYTHM MINIMAL ST DEPRESSION [0.025+ mV ST DEPRESSION] Compared to ECG 08/16/2024 14:17:52 ST (T wave) deviation now present Electronically Signed On 10-26-2024 14:58:35 CDT by Sy Broussard M.D. [email or web address]
[2024-10-26 11:32] LABS: Hematocrit 40.1 % (36-47); Hemoglobin 13.60 g/dL (11.27-16.99); Mean Corpuscular HGB Conc 33.9 g/dL (30-55); Mean Corpuscular Hemoglobin 31.9 pg (27-33); Mean Corpuscular Volume 93.9 fl (85-98); Nucleated Red Blood Cells % 0 %; Platelet Count 194 10^3/cmm (157-399); Red Blood Count 4.27 10^6/uL (3.85-5.65); White Blood Count 7.75 10^3/uL (3.29-11.43)
[2024-10-26 11:45] LABS: HCG, Serum Qual Negative (Negative)
--- NOTE | 2024-10-26 11:52 | PC.NURSE ---
Patient refused Lorazepam. Patient stated Lorazepam is contraindicated due to her Alpha Gal allergy along with mass cell. I called pharmacy and they said it was not contraindicated due to the allergies. Doctor Bryant has been notified of this.
[2024-10-26 11:53] LABS: Troponin(5th) Baseline < 6 ng/L (0-10)
--- OUTSIDE RECORDS SUMMARY | 2024-10-26 12:02 | XMS_ITS | Encounter Summary ---
Author Organization [facility] Address [address] [place] [address] Care Team Providers Care Gas Meter Installer Helper Name Role Phone Jojo Eubanks DO Primary Care Provider Encounter Details Date Type Department Care Team (Late st Contact Info) Description 11/05/2004 Outpatient [address] 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
--- OUTSIDE RECORDS SUMMARY | 2024-10-26 12:02 | XMS_ITS | Encounter Summary ---
Author Organization [facility] Address [address] [place] [address] Care Team Providers Care Web User Experience Strategist Name Role Phone Marck Rhodes MD Primary Care Provider [phone] Reason for Visit * Reason Onset Date Comments Information 10/20/2024 Encounter Details Date Type Department Care Team (Late st Contact Info) Description 10/20/[address] [facility] [address] [place] [address] Dayana Harris MD [address] [address] Information Social History Tobacco Use Types Packs/Day Years Used Date Smoking Tobacco: Former Cigarettes Q uit: 06/11/2011 Smokeless Tobacco: Never Alcohol Use Standard Drinks/Week Comments No 0 (1 standard drink = 0.6 oz pur e alcohol) Comments No Sex and Gender Information Value Date Recorded Sex Assigned at Not on file Legal Sex Female 3:49 AM FISHER MUSSEL Gender Identity Not on file Sexual Orientation Not on file documented as of this encounter Miscellaneous Notes * Telephone Encounter - Son Rosales RN - 10/20/2024 10:32 AM CDT Call made to patient to provide pretest instructions for Treadmill stress test. The following was provided to patient: Date / Time / Location of test. Wear comfortable clothes and walking shoes. May have a light meal and drink. Directions: We are located in the [facility]. You have to come in thru the West entrance off of [address]. You need to check in on the first floor where it says [facility] , do not check in at the main entrance. There is free airplane technician parking available. If late, test may need to be rescheduled. Unable to give test instructions. No answer no voice mail, only number. Hold lopressor, scheduled [id number] documented in this encounter Plan of Treatment Upcoming Encounters Date Type Department Care Team (Late st Contact Info) Description 11/05/2024 10:00 AM CDT Hospital Encounter [facility] [address] [place] [address] Dayana Harris MD [address] [facility] [address] [place] [phone] 11/19/2024 4:20 PM CDT Office Visit [facility] Family [facility] [place] [address] [address] Marck Rhodes MD [address] [address] 04/01/2025 11:30 AM FISHER MUSSEL Office Visit [facility] [address] [place] [phone] Dayana Harris MD [address] [facility] [address] [place] [phone] documented as of this encounter Visit Diagnoses Not on filedocumented in this encounter Additional Health Concerns Assessment Noted Time PHQ-9 Depression Total Score: 1 08/21/19 25 2:39 PM CDT documented as of this encounter Care Teams Web User Experience Strategist Relationship Specialty Start Date End Date Marck Rhodes MD [address] [phone] PCP - General Family Practice 08/20/24 documented as of this encounter
--- OUTSIDE RECORDS SUMMARY | 2024-10-26 12:02 | XMS_ITS | Encounter Summary ---
Author Organization [facility] Address [address] [place] [address] Care Team Providers Care Commercial Leasing Agent Name Role Phone Jojo Eubanks Primary Care Provider Encounter Details Date Type Department Care Team (Latest Contact Info) Description 11/21/2004 Outpatient Historical [facility] [facility] [place] [address] Fran Orellana MD [address] [address] CALCULUS OF URETER (Primary Dx) Social History Tobacco Use Types Packs/Day Years Used Date Smoking Tobacco: Never Assessed Comments Unknown Sex and Gender Information Value Date Recorded Sex Assigned at Not on file Legal Sex Female 3:45 AM LATEX 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 Gender Identity Not on file Sexual Orientation Not on file documented as of this encounter Plan of Treatment Not on file documented as of this encounter Procedures Procedure Name Priority Date/Time Associated Diagnosis Comments PT AND APTT Routine 11/21/2004 5:55 AM CDT CBC WITH DIFFERENTIAL Routine 11/21/2004 5:55 AM CDT HCG QUANTITATIVE, BLOOD Routine 11/21/2004 5:55 AM CDT COMPREHENSIVE METABOLIC PANEL Routine 11/21/2004 5:55 AM CDT documented in this encounter Results * HCG QUANTITATIVE, BLOOD (11/21/2004 5:55 AM CDT) CHORIONIC GONADOTROPIN, TOTAL <2.0 0.0 - 10.0 mlU/ML INTERFACE SYSTEM Comment: As of 04 at 12:00 p.m. [facility] has changed the methodology for ThCG, and with this change the reference range has changed from 0-5.0 mIU/ml to 0-10.0 mIU/ml. ----- ----- Total HCG levels between 10 mIU/mL and 25 mIU/mL may be indicative of early but need to be correlated with other clinical findings. HCG ranges during normal , as reported by the associate agent insurance sales, are summarized as follows: Gestational Age Expected hCG Values(mIU/ml) 0.2-1 Weeks 5 - 50 1-2 Weeks 50 - 500 2-3 Weeks 100 - 5,000 3-4 Weeks 1,000 - 50,000 5-6 Weeks 10,000 - 100,000 6-8 Weeks 15,000 - 200,000 2-3 Months 10,000 - 100,000 11/21/2004 5:55 AM CDT us Fran Orellana MD CHEMISTRY ORDERABLES Final R esult INTERFACE SYSTEM Refer to clinic/hospital department * PT AND APTT (11/21/2004 5:55 AM CDT) PROTIME 13.6 12.4 - 14.9 Secs INTERFACE SYSTEM Comment: As of 03 note change in normal range. INR 1.0 INTERFACE SYSTEM Comment: Expected Values for INR: DVT/PE Goal INR 2.5; range 2.0 - 3.0 Valve Replacement Tissue Goal INR 2.5; range 2.0 - 3.0 Mechanical Goal INR 3.0; range 2.5 - 3.5 POST-MS Goal INR 2.5; range 2.0 - 3.0 or Goal 3.0; range 2.5 - 3.5 Atrial Fibrillation Goal INR 2.5; range 2.0 - 3.0 Ischemic Stroke Goal INR 2.5; range 2.0 - 3.0 For additional information see Guidelines for Anticoagulation available from the pharmacy Stephon Shanks PTT 26.4 24.3 - 37.5 Secs INTERFACE SYSTEM Comment:Therapeutic Range: 11/21/2004 5:55 AM CDT Fran Orellana MD HEMATOLOGY ORDERABLES Final Result INTERFACE SYSTEM Refer to clinic/hospital department * (ABNORMAL) COMPREHENSIVE METABOLIC PANEL (11/21/2004 5:55 AM CDT) GLUCOSE 114(H) 70 - 110 mg/dL INTERFACE SYSTEM BUN 13 7 - 17 mg/dL INTERFACE SYSTEM CREATININE 1.1 0.7 - 1.2 mg/dL INTERFACE SYSTEM SODIUM 142 136 - 145 mEq/L INTERFACE SYSTEM POTASSIUM 3.5 3.5 - 5.0 mEq/L INTERFACE SYSTEM CO2 23 22 - 32 mmol/l INTERFACE SYSTEM CHLORIDE 104 95 - 110 mEq/L INTERFACE SYSTEM CALCIUM 9.9 8.4 - 10.5 mg/dL INTERFACE SYSTEM ALKALINE PHOSPHATASE 103 38 - 126 IU/L INTERFACE SYSTEM TOTAL PROTEIN 8.9(H) 6.3 - 8.2 g/dL INTERFACE SYSTEM ALBUMIN 4.7 3.5 - 5.0 g/dL INTERFACE SYSTEM AST 17 14 - 36 IU/L INTERFACE SYSTEM ALT 19 9 - 52 IU/L INTERFACE SYSTEM BILIRUBIN TOTAL 0.4 0.2 - 1.4 mg/dL INTERFACE SYSTEM GLOBULIN (CALC) 4.2(H) 2.4 - 3.9 g/dL INTERFACE SYSTEM ANION GAP 19 9 - 20 mEq/L INTERFACE SYSTEM ALBUMIN/GLOBULIN RATIO 1.1 1.0 - 2.3 INTERFACE SYSTEM OSMOLALITY, CALCULATED 292 275 - 295 mOsm/Kg INTERFACE SYSTEM 11/21/2004 5:55 AM CDT Fran Orellana MD CHEMISTRY ORDERABLES Final R esult INTERFACE SYSTEM Refer to clinic/hospital department * (ABNORMAL) CBC WITH DIFFERENTIAL (11/21/2004 5:55 AM CDT) WBC 12.4(H) 4.5 - 11.0 K/ul INTERFACE SYSTEM RBC 4.76 4.20 - 5.40 Mil/ul INTERFACE SYSTEM HEMOGLOBIN 14.8 12.0 - 16.0 g/dL INTERFACE SYSTEM HEMATOCRIT 42.5 36.0 - 46.0 % INTERFACE SYSTEM MCV 89.3 84.0 - 103.0 Fl INTERFACE SYSTEM MCH 31.1 27.0 - 34.0 pg INTERFACE SYSTEM MCHC 34.8 30.0 - 35.0 g/dL INTERFACE SYSTEM RDW 13.2 11.0 - 14.5 % INTERFACE SYSTEM PLATELETS 284 140 - 440 K/ul INTERFACE SYSTEM MPV 9.5 8.9 - 12.8 Fl INTERFACE SYSTEM NEUTROPHILS 66.9 42.2 - 75.2 % INTERFACE SYSTEM LYMPHOCYTES 25.8 24.0 - 44.0 % INTERFACE SYSTEM MONOCYTES 5.3 2.0 - 10.0 % INTERFACE SYSTEM EOSINOPHILS 1.8 0.0 - 7.0 % INTERFACE SYSTEM BASOPHILS 0.2 0.0 - 1.0 % INTERFACE SYSTEM NEUTROPHIL ABSOLUTE 8.3(H) 2.0 - 8.0 K/uL INTERFACE SYSTEM LYMPHOCYTE ABSOLUTE 3.2 1.2 - 4.0 K/ul INTERFACE SYSTEM MONOCYTE ABSOLUTE 0.7(H) 0.1 - 0.6 K/ul INTERFACE SYSTEM EOSINOPHIL ABSOLUTE 0.2 0.0 - 0.7 K/ul INTERFACE SYSTEM BASOPHILS ABSOLUTE 0.0 0.0 - 0.2 K/ul INTERFACE SYSTEM 11/21/2004 5:55 AM CDT us Fran Orellana MD HEMATOLOGY ORDERABLES Final Result INTERFACE SYSTEM Refer to clinic/hospital department documented in this encounter Visit Diagnoses Diagnosis Calculus of ureter- Primary documented in this encounter Care Teams Commercial Leasing Agent Relationship Specialty Start Date End Date Jojo Eubanks DO [address] [place] [phone] PCP - General Family Practice 06/11/17 documented as of this encounter
--- OUTSIDE RECORDS SUMMARY | 2024-10-26 12:02 | XMS_ITS | Encounter Summary ---
Author Organization [facility] Address [address] [place] [address] Care Team Providers Care Burr Machine Operator Name Role Phone Marck Rhodes MD Primary Care Provider [phone] Encounter Details Date Type Department Care Team (Late st Contact Info) Description 09/24/2024 Results Follow-Up [facility] [address] [facility] [address] [place] [phone] Dayana Harris MD [address] [facility] [address] [place] [phone] EKG 12-LEAD Social History Tobacco Use Types Packs/Day Years Used Date Smoking Tobacco: Former Cigarettes Q uit: 06/11/2011 Smokeless Tobacco: Never Alcohol Use Standard Drinks/Week Comments No 0 (1 standard drink = 0.6 oz pur e alcohol) Comments No Sex and Gender Information Value Date Recorded Sex Assigned at Not on file Legal Sex Female 3:49 AM EMPLOYEE SERVICES MANAGER Gender Identity Not on file Sexual Orientation Not on file documented as of this encounter Plan of Treatment Upcoming Encounters Date Type Department Care Team (Late st Contact Info) Description 11/05/2024 10:00 AM CDT Hospital Encounter [facility] [address] [place] [address] Dayana Harris MD [address] [facility] [address] [place] [phone] 11/19/2024 4:20 PM CDT Office Visit [facility] [place] [address] [address] Marck Rhodes MD [address] [address] 04/01/2025 11:30 AM EMPLOYEE SERVICES MANAGER Office Visit [facility] [address] [place] [phone] Dayana Harris MD [address] [place] [phone] documented as of this encounter Visit Diagnoses Not on filedocumented in this encounter Additional Health Concerns Assessment Noted Time PHQ-9 Depression Total Score: 1 08/21/19 2:39 PM CDT documented as of this encounter Care Teams Burr Machine Operator Relationship Specialty Start Date End Date Marck Rhodes MD [address] [phone] PCP - General Family Practice 08/20/24 documented as of this encounter
--- OUTSIDE RECORDS SUMMARY | 2024-10-26 12:02 | XMS_ITS | Encounter Summary ---
Author Organization [facility] Address [address] [place] [address] Care Team Providers Care Crematorium Operator Name Role Phone Jojo Eubanks DO Primary Care Provider [phone] Encounter Details Date Type Department Care Team (Latest Contact Info) Description 11/28/2004 Outpatient [facility] Imaging and Laboratory Services [place] [address] [place] [address] Fran Orellana MD [address] [place] [address] CALCULUS OF KIDNEY (Primary Dx) Social History Tobacco Use Types Packs/Day Years Used Date Smoking Tobacco: Never Assessed Comments Unknown Sex and Gender Information Value Date Recorded Sex Assigned at Not on file Legal Sex Female 3:45 AM VISUAL SPECIALIST Gender Identity Not on file Sexual Orientation Not on file documented as of this encounter Plan of Treatment Not on file documented as of this encounter Visit Diagnoses Diagnosis Calculus of kidney- Primary documented in this encounter Care Teams Crematorium Operator Relationship Specialty Start Date End Date Jojo Eubanks DO [address] [place] [id number] PCP - General Family Practice 06/11/17 documented as of this encounter
--- OUTSIDE RECORDS SUMMARY | 2024-10-26 12:02 | XMS_ITS | Encounter Summary ---
Author Organization [facility] Address [address] [place] [address] Care Team Providers Care Test Engineering Manager Name Role Phone Jojo Eubanks DO Primary Care Provider Encounter Details Date Type Department Care Team (Latest Contact Info) Description 11/29/[address] [facility] Urology- [place] [address]trance [address], 3rd [place] [address] Fran Orellana MD [address] [place] [address] CALCULUS OF KIDNEY (Primary Dx) Social History Tobacco Use Types Packs/Day Years Used Date Smoking Tobacco: Never Assessed Comments Unknown Sex and Gender Information Value Date Recorded Sex Assigned at Not on file Legal Sex Female 3:45 AM MAKE UP OPERATOR Gender Identity Not on file Sexual Orientation Not on file documented as of this encounter Plan of Treatment Not on file documented as of this encounter Visit Diagnoses Diagnosis Calculus of kidney- Primary documented in this encounter Care Teams Test Engineering Manager Relationship Specialty Start Date End Date Jojo Eubanks DO [address] [place] [phone] PCP - General Family Practice 06/11/17 documented as of this encounter
--- OUTSIDE RECORDS SUMMARY | 2024-10-26 12:02 | XMS_ITS | Clinical Summary ---
Author Organization [facility] Address [address] [address] Phone Care Team Providers Care Public Affairs Specialist Name Role Phone Jojo Eubanks Primary Care Provider Allergies Active Allergy Reactions Criticality Noted Date Comments Alcohol Rash Low 09/11/2018 Apple Anaphylaxis High 08/25/2020 Aspirin Rash Low 02/23/2013 Banana Anaphylaxis High 08/25/2020 Barley Unknown 08/17/2018 Beef Containing Products Anaphylaxis High 06/16/2018 Alpha gal allergy Blackberry Anaphylaxis High 08/25/2020 Cabbage Unknown 08/17/2018 Carrot Unknown 08/17/2018 Chicken Derived Other (See Comments) 06/16/2018 Abdominal bloating Chocolate Flavor Anaphylaxis High 08/25/2020 [place] Unknown 08/17/2018 Crab Unknown 08/17/2018 [place] Anaphylaxis High 02/23/2013 Diazepam Other (See Comments) 07/21/2017 Makes me hyper Divalproex Rash Low 02/23/2013 Egg White Anaphylaxis High 06/24/2020 Grape Unknown 08/17/2018 Latex Rash,Swelling High 02/23/2013 Lettuce Unknown 08/17/2018 Lisinopril Nausea and Vomiting,Headache,We akness Low 03/17/2017 Meperidine Shortness of Breath/Wheezing,Swel ling High 02/23/2013 Metronidazole Hives High 01/03/2016 Milk Anaphylaxis High 08/17/2018 All dairy products [place] Unknown 08/17/2018 Oats Unknown 08/17/2018 [place] Unknown 08/17/2018 Peanut Unknown 08/17/2018 Penicillins Shortness of Breath/Wheezing High 02/23/2013 Pepper (Genus Capsicum) Unknown 08/17/2018 [place] Anaphylaxis High 08/25/2020 Pork Derived (Porcine) Anaphylaxis High 08/17/2018 Potato Unknown 08/17/2018 Raspberry Anaphylaxis High 08/25/2020 Rice Unknown [place] Grass Unknown 08/17/2018 [place] in food Shellfish Containing Products Anaphylaxis High 08/25/2020 Shrimp Anaphylaxis High 08/17/2018 Soybean Unknown 08/17/2018 [place] Anaphylaxis High 08/25/2020 Tomato Unknown 08/17/2018 Tree Nuts Anaphylaxis High 08/25/2020 Unclassified Drug Other (See Comments) High 10/27/19 16 Some cough meds, compounded meds ALL METALS--severe allery NO PILLS States everything in pill form All grains Wheat Unknown 08/17/2018 Medications EPINEPHrine (EpiPen) 0.3 mg/0.3 mL Auto-Injector Inject 0.3 mL (0.3 mg) by intramuscular injection 1 time daily as needed for Anaphylaxis. 1 Each 1 Active traMADoL (ULTRAM) 50 mg tabletIndicatio ns:Arthralgia, unspecified joint,Fibromyal rocco Take 1 Tablet (50 mg) by mouth every 6 hours as needed for Pain, Moderate. 120 Tablet 2 1 Active pantoprazole (PROTONIX) 40 mg Tablet, Delayed Release (E.C.)Indicatio ns:Multiple food allergies Take 1 Tablet (40 mg) by mouth 2 times daily. 180 Tablet 4 1 Active cetirizine (ZyrTEC) 10 mg tablet Take 1 Tablet (10 mg) by mouth 2 times daily. 180 Tablet 1 1 Active metoprolol tartrate (LOPRESSOR) 25 mg tablet Take 1 Tablet (25 mg) by mouth daily. 90 Tablet 3 1 Active chlorzoxazone (PARAFON FORTE) 500 mg tabletIndicatio ns:Arthralgia, unspecified joint Take 1 Tablet (500 mg) by mouth 3 times daily as needed for Spasm. 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 06/05/2017 Benign essential HTN 03/11/2017 Depression with anxiety 01/28/2017 Chronic lymphadenitis 01/28/2017 Dental caries 10/13/2015 Teeth decayed 08/15/2015 PTSD (post-traumatic stress disorder) 04/14/2012 Headache(784.0) hx of Head trauma Vázquez's neuroma Neuropathy Dyslexia Fibromyalgia Overview (09/06/2020): unknown unknown Chronic obstructive pulmonar y disease with acute exacerbation Resolved Problems Problem Noted Date Diagnosed Date Resolved Date Mild persistent asthma with acute exacerbation 08/15/2015 07/09/2017 Bronchitis, mucopurulent recurrent 08/15/2015 06/14/2016 Cough 08/15/2015 09/25/2015 Hypothyroidism 06/14/2016 HTN (hypertension) 7 Asthma 06/14/2016 Immunizations Immunization Administration Dates Next Due INFLUENZA VACCINE QUADRIVALENT 3 YR UP PF IM Family History Medical History Relation Name Comments Unknown Father Unknown Maternal Grandfather Unknown Maternal Grandmother Unknown Mother Unknown Paternal Grandfather Unknown Paternal Grandmother Breast Cancer Neg Hx Colon Cancer Neg Hx Relation Name Status Comments Father Maternal Grandfather Maternal Grandmother Mother Paternal Grandfather Paternal Grandmother Social History Tobacco Use Types Packs/Day Years Used Date Smoking Tobacco: Former Cigarettes 0.5 10 0 06/11/2001 - 06/11/2011 Smokeless Tobacco: Never Alcohol Use Standard Drinks/Week Comments No 0 (1 standard drink = 0.6 oz pur e alcohol) Comments No Sex and Gender Information Value Date Recorded Sex Assigned at Not on file 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 Gender Identity Not on file Sexual Orientation Not on file Occupation Industry Job Start Date Job End Date Not on file Not on file Not on file Not on file Last Filed Vital Signs Vital Sign Reading Time Taken Comments Blood Pressure 118/70 09/14/2020 8:17 AM CDT Pulse 65 09/14/2020 8:17 AM CDT Temperature 36.7 C (98 F) 09/14/2020 8:17 AM CDT Respiratory Rate 18 09/14/2020 8:17 AM CDT Oxygen Saturation 97% 09/14/2020 8:17 AM CDT Inhaled Oxygen Concentration - - Weight 52.6 kg (116 lb) 09/14/2020 8:17 AM CDT Height 152.4 cm (5') 09/14/2020 8:17 AM CDT Body Mass Index 22.65 09/14/2020 8:17 AM CDT Plan of Treatment Health Maintenance Due Date Last Done Comments DTAP/TDAP/TD VACCINES (1 - Tdap) 12/20/1998 HEPATITIS B VACCINES (1 of 3 - 19+ 3-dose series) 12/20/1998 HPV/Cotest (21-29) 12/20/2000 CERVICAL CANCER SCREENING 12/20/2009 HPV/Cotest (30-65) 12/20/2009 PAP SMEAR 12/20/2009 BREAST CANCER SCREENING 2019 10/24/2017, 09/27 Pre-Diabetes and Diabetes Screening 07/09/2020 07/09/2017 Medicare [place] ([place]) Preventative Visit/Annual Wellness Visit 04/14/2024 06/19/2020, 11/06/2018, 01/30/2018, Additional history exists INFLUENZA VACCINE (#1) 2024 , 01/12/2019, 02/06/2018, Additional history exists HPV VACCINES Aged Out No longer eligi ble based on patient's age to complete this topic Medical Devices Implanted Type Area Manager Strategic Marketing Device Identifier Shelf Expiration Date Model / Serial / Lot Stent Implanted:(Quant ity not on file) Explanted:(Quant ity not on file) Stent Description:kidney Procedures Procedure Name Priority Date/Time Associated Diagnosis Comments MAMMO DIAGNOSTIC UNI RIGHT W OR WO CAD Routine 10/24/2017 Breast nodule HEMOGLOBIN A1C Routine 07/09/2017 3:15 PM CDT 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 from Last 3 Months or Most Recently Relevant to Health Maintenance Results * MAMMO DIAGNOSTIC UNI RIGHT W OR WO CAD (10/24/2017) Anatomical Region Laterality Modality Breast Right Mammography [facility] MAMMO ORDERABLES Final R esult * HEMOGLOBIN A1C (07/09/2017 3:15 PM CDT) HEMOGLOBIN A1C 6.0 4.0 - 6.0 % 07/10/2017 11:47 AM CDT [facility] Likeable Local [facility] EST. AVG GLUCOSE, A1C 126 mg/dL 07/10/2017 11:47 AM CDT [facility] Blood Venipuncture / Unknown 07/09/2017 3:15 PM CDT 07/09/2017 4:56 PM CDT Narrative [facility] - 07/10/2017 11:47 AM CDT Test performed on [employer] instrumentation using HPLC methodology [facility] CHEMISTRY ORDERABLES Fin al Result [facility] CLIA# [id number] [address] [place] [address] from Last 3 Months or Most Recently Relevant to Health Maintenance Insurance [facility] DUAL COMPLETE [employer] PPO D-SNP RX [employer] RX Member Subscriber Plan / Payer (Ef fective 2016-Present) Name:Carmen Stevenson Relation to Subscriber:Self Name:Carmen Stevenson Payer ID:Not on file Group ID:[id number] Type:RX Medicare Part D Address: [address] [facility] [employer] Medicaid Advance Directives For more information, please contact: [phone] * Full Code (Latest Code Status on File) Date Activated Date Inactivated Comments 07/21/2017 6:19 PM 07/24/2017 12:52 PM * Full Code Date Activated Date Inactivated Comments 07/21/2017 8:24 AM 07/21/2017 6:19 PM * Full Code Date Activated Date Inactivated Comments 10/31/2015 8:16 AM 10/31/2015 4:17 PM * Full Code Date Activated Date Inactivated Comments 10/31/2015 6:11 AM 10/31/2015 8:16 AM Care Teams Public Affairs Specialist Relationship Specialty Start Date End Date Jojo Eubanks DO [address] [place] [address] PCP - General Family Practice 06/11/17
--- OUTSIDE RECORDS SUMMARY | 2024-10-26 12:02 | XMS_ITS | Clinical Summary ---
Author Organization [facility] Address [address] [phone] Phone Care Team Providers Care Chartered Financial Analyst Name Role Phone Mrack Rhodes MD Primary Care Provider [phone] Allergies Active Allergy Reactions Criticality Noted Date Comments Alcohol Rash Low 09/11/2018 Apple Anaphylaxis High 08/25/2020 Aspirin Rash Low 02/23/2013 Banana Anaphylaxis High 08/25/2020 Barley Unknown 08/17/2018 Beef Containing Products Anaphylaxis High 06/16/2018 Alpha gal allergy Blackberry Anaphylaxis High 08/25/2020 Cabbage Unknown 08/17/2018 Carrot Unknown 08/17/2018 Chicken Derived Other (See Comments) 06/16/2018 Abdominal bloating Chocolate Flavor Anaphylaxis High 08/25/2020 [place] Unknown 08/17/2018 Crab Unknown 08/17/2018 [place] Anaphylaxis High 02/23/2013 Diazepam Other (See Comments) 07/21/2017 Makes me hyper Divalproex Rash Low 02/23/2013 Egg White Anaphylaxis High 06/24/2020 Grape Unknown 08/17/2018 Latex Rash,Swelling High 02/23/2013 Lettuce Unknown 08/17/2018 Lisinopril Nausea and Vomiting,Headache,We akness Low 03/17/2017 Meperidine Shortness of Breath/Wheezing,Swel ling High 02/23/2013 Metronidazole Hives High 01/03/2016 Milk Anaphylaxis High 08/17/2018 All dairy products [place] Unknown 08/17/2018 Oats Unknown 08/17/2018 [place] Unknown 08/17/2018 Peanut Unknown 08/17/2018 Penicillins Shortness of Breath/Wheezing High 02/23/2013 Pepper (Genus Capsicum) Unknown 08/17/2018 [place] Anaphylaxis High 08/25/2020 Pork Derived (Porcine) Anaphylaxis High 08/17/2018 Potato Unknown 08/17/2018 Raspberry Anaphylaxis High 08/25/2020 Rice Unknown Potrero Grass Unknown 08/17/2018 Potrero in food Shellfish Containing Products Anaphylaxis High 08/25/2020 Shrimp Anaphylaxis High 08/17/2018 Soybean Unknown 08/17/2018 [place] Anaphylaxis High 08/25/2020 Tomato Unknown 08/17/2018 Tree Nuts Anaphylaxis High 08/25/2020 Unclassified Drug Other (See Comments) High 10/27/19 16 Some cough meds, compounded meds, , ALL METALS--severe allery, NO PILLS, States everything in pill form , All grains Wheat Unknown 08/17/2018 Medications EPINEPHrine (EPIPEN) 0.3 mg/0.3 mL Auto-Injector Inject 0.3 mL (0.3 mg) by intramuscular injection 1 time daily as needed for Anaphylaxis. 1 Each PRN 05/30/19 21 Active metoprolol tartrate (LOPRESSOR) 25 mg tablet Take 1 Tablet (25 mg) by mouth daily. 90 Tablet 3 09/07/19 21 Active cetirizine (ZyrTEC) 10 mg tablet Take 1 Tablet (10 mg) by mouth 2 times daily. 180 Tablet 1 08/17/19 21 Active chlorzoxazone (PARAFON FORTE) 500 mg tabletIndicatio ns:Arthralgia, unspecified joint Take 1 Tablet (500 mg) by mouth 3 times daily as needed for Spasm. 270 Tablet 4 09/15/19 21 Active clindamycin phosphate (CLEOCIN) 1 % SolutionIndicat ions:Rosacea Apply to affected area daily. 30 mL 2 09/09/19 25 Active traMADol (ULTRAM) 50 mg tabletIndicatio ns:Arthralgia, unspecified joint,Fibromyal rocco Take 1 Tablet (50 mg) by mouth every 8 hours as needed for Pain. 90 Tablet 09/18/19 25 Active pantoprazole (PROTONIX) 40 mg Tablet, Delayed Release (E.C.)Indicatio ns:Multiple food allergies Take 1 Tablet (40 mg) by mouth daily. 90 Tablet 1 10/19/19 25 Active pantoprazole (PROTONIX) 40 mg Tablet, Delayed Release (E.C.)Indicatio ns:Multiple food allergies Take 1 Tablet (40 mg) by mouth 2 times daily. 180 Tablet 4 06/20/19 21 025 Discontin ued(Reord er) Active Problems Problem Noted Date Diagnosed Date Other forms of angina pectoris 09/24/2024 Shortness of breath 09/24/2024 Anxiety 09/24/2024 Noncompliance 09/24/2024 History of resection of rib 07/22/2017 Obesity (BMI 30.0-34.9) 07/22/2017 Thoracic outlet syndrome 06/30/2017 Subclavian vein occlusion with collaterals - rig ht 06/05/2017 Benign essential HTN 03/11/2017 Depression with anxiety 01/28/2017 Chronic lymphadenitis 01/28/2017 Dental caries 10/13/2015 Teeth decayed 08/15/2015 PTSD (post-traumatic stress disorder) 04/14/2012 Headache(784.0) Vázquez's neuroma hx of Head trauma Dyslexia Neuropathy Fibromyalgia Overview (09/27/2020): unknown unknown Chronic obstructive pulmonar y disease with acute exacerbation Resolved Problems Problem Noted Date Diagnosed Date Resolved Date Bronchitis, mucopurulent recurrent 08/15/2015 06/14/2016 Cough 08/15/2015 09/25/2015 Mild persistent asthma with acute exacerbation 08/15/2015 07/09/2017 HTN (hypertension) 7 Hypothyroidism 06/14/2016 Asthma 06/14/2016 Encounters Date Type Department Care Team Description 10/20/2024 Telephone [facility] Echo [address] [place] [address] Dayana Harris MD Information 10/18/2024 Orders Only [facility] [place] [address] [place] [address] Willa Shay LPN Multiple food allergies 10/01/2024 1:42 PM CDT - 10/01/2024 11:59 PM CDT Hospital Encounter [facility] [address] [phone] Mae Villarreal FNP Discharge Disposition: Home or Self Care 09/28/2024 External Device Data STL ABSTRACTION Provider, Abstract 09/24/2024 11:30 AM CDT Office Visit [place] [address] [address] [facility] [address] [place] [phone] Mae Villarreal FNP [place], [place], MD PTSD (post-traumatic stress disorder) (Primary Dx); Other forms of angina pectoris; Shortness of breath; Anxiety; Noncompliance; Fibromyalgia; Obesity (BMI 30.0-34.9); Chronic obstructive pulmonary disease with acute exacerbation 09/24/2024 Results Follow-Up [place] [address] [address] [facility] [address] [place] [phone] Dayana Harris MD EKG 12-LEAD 09/20/[address] [phone] Marck Rhodes MD Arthralgia, unspecified joint; Fibromyalgia 09/17/[address] [phone] Marck Rhodes MD Arthralgia, unspecified joint; Fibromyalgia 09/17/[address] [phone] Marck Rhodes MD Medication Problem 09/15/2024 Orders Only [place] [address] [address] [facility] [address] [place] [phone] Dayana Hraris MD Benign essential HTN (Primary Dx) 09/14/[address] [phone] Marck Rhodes MD Fibromyalgia (Primary Dx); Arthralgia, unspecified joint 09/08/2024 Orders Only [address] [phone] Mae Villarreal, MISTY Rosacea (Primary Dx) 09/08/2024 Results Follow-Up [address] [phone] Mae Villarreal, MISTY OLINDA SCREEN W/REFLEX, MAMMO 3D DAY SCREEN BILAT W OR WO CAD 09/03/2024 2:40 PM CDT Office Visit [address] [phone] Mae Villarreal, MISTY Butterfly rash (Primary Dx); Screening mammogram, encounter for; Allergic contact dermatitis, unspecified trigger; Cellulitis of face 09/01/[address] [phone] Marck Rhodes MD Clinical Consult Before Scheduling 08/26/2024 Orders Only [place] [address] [place] [phone] Provider, Abstract 08/20/2024 3:00 PM CDT Office Visit [address] [phone] Mae Villarreal, MISTY Palpitations (Primary Dx); Refused influenza vaccine; Benign essential HTN; 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; Thoracic outlet syndrome; Stage 2 chronic kidney disease; Chronic obstructive pulmonary disease, unspecified COPD type ([facility]) 08/17/2024 External Device Data STL ABSTRACTION Provider, Abstract 08/17/2024 External Device Data STL ABSTRACTION Provider, Abstract 08/17/2024 External Device Data STL ABSTRACTION Provider, Abstract 08/17/2024 Orders Only [facility] [address] [place] [phone] Provider, Abstract 08/17/2024 Abstract [facility] [address] [facility] [address] [place] [phone] Mae Villarreal, MISTY 08/10/2024 Telephone [facility] [address] [place] [phone] Jojo Eubanks, DO Clinical Consult Before Scheduling from Last 3 Months Immunizations Immunization Administration Dates Next Due (TDVAX)(7 YRS UP) TETANUS AN D DIPHTHERIA TOXOIDS, ADSORBED (2 LF OF TETANUS TOXOID AND 2 LF OF DIPHTHERIA TOXOID), 0.5ML (PF), IM 06/19/2011 INFLUENZA VACCINE QUADRIVALENT 3 YR UP PF IM Influenza Seasonal Unspecified Formulation IM Family History Medical History Relation Name Comments Unknown Father Unknown Maternal Grandfather Cancer Maternal Grandmother Unknown Mother Unknown Paternal Grandfather Unknown Paternal Grandmother Breast Cancer Neg Hx Colon Cancer Neg Hx Relation Name Status Comments Father Maternal Grandfather Maternal Grandmother Mother Paternal Grandfather Paternal Grandmother Social History Tobacco Use Types Packs/Day Years Used Date Smoking Tobacco: Former Cigarettes Q uit: 06/11/2011 Smokeless Tobacco: Never Tobacco Cessation:Counseling Given: Not Answered Alcohol Use Standard Drinks/Week Comments No 0 (1 standard drink = 0.6 oz pur e alcohol) Comments No Sex and Gender Information Value Date Recorded Sex Assigned at Not on file Legal Sex Female 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 Gender Identity Not on file Sexual Orientation Not on file Last Filed Vital Signs Vital Sign Reading Time Taken Comments Blood Pressure 102/58 09/24/2024 10:50 AM CDT Pulse 66 09/24/2024 10:50 AM CDT Temperature 35.9 C (96.6 F) 09/03/2024 1:56 PM CDT Respiratory Rate 18 09/03/2024 1:56 PM CDT Oxygen Saturation 95% 09/03/2024 1:56 PM CDT Inhaled Oxygen Concentration - - Weight 65.1 kg (143 lb 9.6 oz) 09/24/2024 10:50 AM CDT Height 152.4 cm (5') 09/24/2024 10:50 AM CDT Body Mass Index 28.04 09/24/2024 10:50 AM CDT Plan of Treatment Upcoming Encounters Date Type Department Care Team (Late st Contact Info) Description 11/05/2024 10:00 AM CDT Hospital Encounter [facility] Echo [address] 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 Office Visit [facility] [address] [place] [phone] Dayana Harris MD [address] [place] [phone] Health Maintenance Due Date Last Done Comments HEPATITIS B VACCINES (1 of 3 - 19+ 3-dose series) 12/20/1998 HPV/Cotest (21-29) 12/20/2000 CERVICAL CANCER SCREENING 12/20/2009 HPV/Cotest (30-65) 12/20/2009 PAP SMEAR 12/20/2009 DTAP/TDAP/TD VACCINES (1 - Tdap) 06/20/2011 06/19/2011 Pre-Diabetes and Diabetes Screening 07/09/2020 07/09/2017 Medicare [place] Preventative Visit/Annual Wellness Visit 04/14/2024 11/06/2018, 01/30/2018, 10/16/2016 INFLUENZA VACCINE (#1) 2024 , 08/20/2024, 06/19/2020, Additional history exists BREAST CANCER SCREENING 10/01/2025 10/02/19, 10/24/2017, 10/24/2017, Additional history exists HPV VACCINES Aged Out No longer eligi ble based on patient's age to complete this topic Medical Devices Implanted Type Area Integrated Logistics Operations Manager Device Identifier Shelf Expiration Date Model / Serial / Lot Stent Stent Description:kidney Procedures Procedure Name Priority Date/Time Associated Diagnosis Comments MAMMO 3D DAY SCREEN BILAT W OR WO CAD Routine 10/01/2024 2:09 PM CDT Screening mammogram, encounter for EKG 12-LEAD Routine 09/24/2024 11:30 AM CDT Benign essential HTN OLINDA SCREEN W/REFLEX Routine 09/03/2024 2 :21 PM CDT Butterfly rash COMPREHENSIVE METABOLIC PANEL Routine 08/16/2024 4:08 PM CDT HEMOGLOBIN A1C Routine 07/09/2017 3:15 PM CDT from Last 3 Months or Most Recently Relevant to Health Maintenance Results * MAMMO 3D DAY SCREEN BILAT W OR WO CAD (10/01/2024 2:09 PM CDT) Anatomical Region Laterality Modality Breast Bilateral Mammography, Dig ital Radiography Impressions 10/04/2024 3:35 PM CDT : No mammographic evidence of malignancy. BI-RADS ASSESSMENT: 1 - Negative RECOMMENDATION: Routine annual screening mammography. Narrative 10/04/2024 3:35 PM CDT EXAM: MAMMO SCRN BILAT 3D DAY W OR WO CAD INDICATION: Screening COMPARISON: 10/24/2017 MAMMO PRIOR STUDY and 09/26/2017 MAMMO PRIOR STUDY BREAST COMPOSITION: There are scattered areas of fibroglandular density. FINDINGS: RIGHT BREAST: There are no suspicious masses, calcifications, or areas of architectural distortion. LEFT BREAST: There are no suspicious masses, calcifications, or areas of architectural distortion. us Mae Villarreal RAYON CONER MAMMO ORDERABLES Final R esult * EKG 12-LEAD (09/24/2024 11:30 AM CDT) Narrative [facility] - 09/24/2024 11:30 AM CDT Dayana Harris MD 09/24/2024 11:18 AM EKG 12-LEAD Date/Time: 09/24/2024 11:30 AM Performed by: Dayana Harris MD Authorized by: Dayana Harris MD Comments: Sinus rhythm, nonspecific ST-T wave changes, borderline abnormal EKG. Procedure Note Dayana Harris MD - 09/24/2024 11:09 AM CDT Images from the original note were not included. Cardiology Clinic Note Patient name: Carmen Limon. 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 year old female who Past MedicalHistory: No date: Alpha-gal syndrome No date: Asthma No date: Calculus of kidney No date: COPD (chronic obstructive pulmonary disease) (CMS/HCC) No date: Dyslexia No date: Fibromyalgia Comment: unknown No date: Head trauma No date: Headache(784.0) No date: HTN (hypertension) No date: Hypothyroidism No date: Injury of back No date: Latex sensitivity No date: Vázquez's neuroma No date: Motion sickness No date: Neuropathy No date: Pancreatitis Comment: x 3 No date: Post-operative nausea and vomiting 2013: PTSD (post-traumatic stress disorder) No date: Tachycardia No date: Thrush 43-year-old female with past medical history of asthma, COPD,fibromyalgia, hypertension, PTSD is here to establish care withcardiology. In the past patient has had an event monitor in 2019 where all hersymptoms were associated with sinus rhythm. The patient complains ofatypical sharp chest pain, shortness of breath with mild to moderatelevels of exertion. Denies any presyncope or syncope. Has multipleatypical noncardiac symptoms which will be deferred to PCP for furtherevaluation. For cardiac evaluation recommend treadmill stressechocardiogram. I explained the entire procedures, alternatives in detailwith all the risk and benefit involved. I also explained that if any ofthe testing were to come abnormal patient may need furtherinvasive/noninvasive testing including coronary angiography plus minus PCIversus cardiac CTA versus other modalities. I explained the procedure indetail as well as with all the risk and benefit involved and the patientis agreeable to move forward with the plan. Evaluation, management and appropriate referrals for noncardiac etiologiespotentially contributing to patient's presentation will be deferred topatient's PCP. I had an extensive discussion with the patient regardingfurther course of action, necessary testing, emergency precautions andpatient is agreeable with the same. Past Medical History: Past Medical History: Diagnosis Date Alpha-gal syndrome Asthma Calculus of kidney COPD (chronic obstructive pulmonary disease) ([facility]) Dyslexia Fibromyalgia unknown Head trauma Headache(784.0) HTN (hypertension) Hypothyroidism Injury of back Latex sensitivity Vázquez's neuroma Motion sickness Neuropathy Pancreatitis x 3 Post-operative nausea and vomiting PTSD (post-traumatic stress disorder) 2013 Tachycardia Thrush Past Surgical History: Past Surgical History: Procedure Laterality Date HX CHOLECYSTECTOMY HX HERNIA REPAIR HX HYSTERECTOMY HX SURGICAL OTHER 14 surgeries on feet from 2 days age to 2 years HX SURGICAL OTHER colonoscopy x 2, edg x 4 HX SURGICAL OTHER kidney stone that shut down kidneys, surgery x 3 HX SURGICAL OTHER 5 female surgeries, HX SURGICAL OTHER 1996 emergency surgery,internal bleeding,appendix removed at this time HX SURGICAL OTHER one ovary removed, HX THORACOTOMY Right 07/21/2017 THORACOTOMY performed by Corwin Florian MD at [facility] OR ME ALVEOLOPLASTY EACH QUADRANT SPECIFY Bilateral 10/31/2015 ALVEOLOPLASTY performed by Abhilash Blue, Nicho Montgomery DMD at [facility] OR ME UNLISTED PROCEDURE DENTOALVEOLAR STRUCTURES Bilateral 10/31/2015 TEETH MULTIPLE EXTRACTION [facility] Nicho Hung Jr., [facility] Allergies: Allergies Allergen Reactions Apple Anaphylaxis Banana Anaphylaxis Beef Containing Products Anaphylaxis Alpha gal allergy Blackberry Anaphylaxis Chocolate Flavor Anaphylaxis [place] Anaphylaxis Egg White Anaphylaxis Latex Rash and Swelling Meperidine Shortness of Breath/Wheezing and Swelling Metronidazole Hives Milk Anaphylaxis All dairy products Penicillins Shortness of Breath/Wheezing [place] Anaphylaxis Pork Derived (Porcine) Anaphylaxis Raspberry Anaphylaxis Shellfish Containing Products Anaphylaxis Shrimp Anaphylaxis [place] Anaphylaxis Tree Nuts Anaphylaxis Unclassified Drug Other (See Comments) Some cough meds, compounded meds, , ALL METALS--severe allery, NO PILLS,States everything in pill form , All grains Barley Unknown Cabbage Unknown Carrot Unknown Chicken Derived Other (See Comments) Abdominal bloating [place] Unknown Crab Unknown Diazepam Other (See Comments) Makes me hyper Grape Unknown Lettuce Unknown [place] Unknown Oats Unknown [place] Unknown Peanut Unknown Pepper (Genus Capsicum) Unknown Potato Unknown Rice Unknown [place] Grass Unknown [place] in food Soybean Unknown Tomato Unknown Wheat Unknown Alcohol Rash Aspirin Rash Divalproex Rash Lisinopril Nausea and Vomiting, Headache and Weakness Current Medications: Current Outpatient Medications Medication Sig Dispense Refill traMADol (ULTRAM) 50 mg tablet Take 1 Tablet (50 mg) by mouth every 8hours as needed for Pain. 90 Tablet 0 clindamycin phosphate (CLEOCIN) 1 % Solution Apply to affected areadaily. 30 mL 2 chlorzoxazone (PARAFON FORTE) 500 mg tablet Take 1 Tablet (500 mg) bymouth 3 times daily as needed for Spasm. 270 Tablet 4 metoprolol tartrate (LOPRESSOR) 25 mg tablet Take 1 Tablet (25 mg) bymouth daily. 90 Tablet 3 cetirizine (ZyrTEC) 10 mg tablet Take 1 Tablet (10 mg) by mouth 2 timesdaily. 180 Tablet 1 pantoprazole (PROTONIX) 40 mg Tablet, Delayed Release (E.C.) Take 1Tablet (40 mg) by mouth 2 times daily. 180 Tablet 4 EPINEPHrine (EPIPEN) 0.3 mg/0.3 mL Auto-Injector Inject 0.3 mL (0.3 mg)by intramuscular injection 1 time daily as needed for Anaphylaxis. 1 EachPRN No current facility-administered medications for this visit. Current Outpatient Medications Medication traMADol (ULTRAM) 50 mg tablet clindamycin phosphate (CLEOCIN) 1 % Solution chlorzoxazone (PARAFON FORTE) 500 mg tablet metoprolol tartrate (LOPRESSOR) 25 mg tablet cetirizine (ZyrTEC) 10 mg tablet pantoprazole (PROTONIX) 40 mg Tablet, Delayed Release (E.C.) EPINEPHrine (EPIPEN) 0.3 mg/0.3 mL Auto-Injector No current facility-administered medications for this visit. Family History: Family History Problem Relation Name Age of Onset Colon Cancer Neg Hx Breast Cancer Neg Hx Unknown Paternal Grandfather Unknown Paternal Grandmother Unknown Maternal Grandfather Unknown Mother Unknown Father Unknown Maternal Grandmother Social History: Social History Tobacco Use Smoking status: Former Current packs/day: 0.00 Types: Cigarettes Quit date: 06/11/2011 Years since quittin.2 Smokeless tobacco: Never Vaping Use Vaping status: Never Used Substance Use Topics Alcohol use: No Alcohol/week: 0.0 standard drinks of alcohol Drug use: Yes Types: Marijuana Review of Systems: All 12 systems were reviewed and are negative except pertinent positivesalready dictated under HPI. FH and SH reviewed. Physical Exam: BP 102/58 (BP Location: Left arm, Patient Position (BP): Sitting, BP CuffSize: Large Adult) Pulse 66 Ht 5' (1.524 m) Wt 65.1 kg (143 lb9.6 oz) LMP (LMP Unknown) BMI 28.04 kg/m Gen: NAD; Alert and oriented, no acute distress CV: RRR, 1/6 systolic murmur present in precordium, audible s1/s2 Chest: CTAB, non-labored respiration Abdominal: Soft, non-tender, non-distended, normal bowel sounds, noorganomegaly. Ext: Trace edema LABORATORY: No results for input(s): WBC , HGB , HCT , PLT in the last 72hours. No results for input(s): NA , K , CL , CO2 , CA , BUN , CREAT , GLUCOSE in the last 72 hours. No results for input(s): TOTALPROTEIN , ALBUMIN , BILITOTAL , ALKPHOS , AST , ALT in the last 72 hours. No results for input(s): INR , PT in the last 72 hours. Invalid input(s): PTT No results for input(s): BASETROP , 2HRTROP , DELTA , 6HRTROP in thelast 72 hours. CBC: Lab Results Component Value Date WBC 5.8 08/10/2020 WBC 6.7 05/28/2019 WBC 9.0 01/12/2019 Lab Results Component Value Date HGB 13.6 08/10/2020 HGB 15.4 05/28/2019 HGB 14.0 01/12/2019 Lab Results Component Value Date HCT 40.2 08/10/2020 HCT 43.2 05/28/2019 HCT 40.2 01/12/2019 Lab Results Component Value Date PLT 142 08/10/2020 PLT 197 05/28/2019 PLT 202 01/12/2019 Comp: Lab Results Component Value Date NA 142 08/10/2020 NA 143 05/28/2019 NA 142 01/12/2019 Lab Results Component Value Date K 3.8 08/10/2020 K 3.5 05/28/2019 K 3.8 01/12/2019 Lab Results Component Value Date CL 105 08/10/2020 CL 104 05/28/2019 CL 100 01/12/2019 Lab Results Component Value Date CO2 20 (L) 08/10/2020 CO2 23 05/28/2019 CO2 28 01/12/2019 Lab Results Component Value Date CA 9.2 08/10/2020 CA 9.3 05/28/2019 CA 9.4 01/12/2019 Lab Results Component Value Date BUN 13 08/10/2020 BUN 5 (L) 05/28/2019 BUN 3 (L) 01/12/2019 Lab Results Component Value Date CREAT 1.03 (H) 08/10/2020 CREAT 0.87 05/28/2019 CREAT 0.81 01/12/2019 Lab Results Component Value Date GLUCOSE 80 08/10/2020 GLUCOSE 88 05/28/2019 GLUCOSE 91 01/12/2019 Lab Results Component Value Date TOTALPROTEIN 7.0 08/10/2020 TOTALPROTEIN 7.3 05/28/2019 TOTALPROTEIN 6.9 01/12/2019 Lab Results Component Value Date ALBUMIN 4.8 08/10/2020 ALBUMIN 5.0 05/28/2019 ALBUMIN 4.6 01/12/2019 Lab Results Component Value Date BILITOTAL 0.7 08/10/2020 BILITOTAL 0.6 05/28/2019 BILITOTAL 0.3 01/12/2019 Lab Results Component Value Date ALKPHOS 84 08/10/2020 ALKPHOS 60 05/28/2019 ALKPHOS 75 01/12/2019 Lab Results Component Value Date AST 17 08/10/2020 AST 15 05/28/2019 AST 15 01/12/2019 Lab Results Component Value Date ALT 32 08/10/2020 ALT 16 05/28/2019 ALT 20 01/12/2019 Lab Results Component Value Date GFR 59 (L) 08/10/2020 GFR >60 05/28/2019 GFR >60 01/12/2019 Lab Results Component Value Date [place] >60 08/10/2020 [place] >60 05/28/2019 [place] >60 01/12/2019 Lab Results Component Value Date ANIONGAP 17 08/10/2020 ANIONGAP 16 05/28/2019 ANIONGAP 14 01/12/2019 Coags: No results found for: PT No results found for: INR No results found for: APTT FLP: Lab Results Component Value Date CHOLTOT 213 (H) 11/06/2018 CHOLTOT 194 05/21/2018 CHOLTOT 187 01/30/2018 Lab Results Component Value Date TRIGLYCERIDE 175 (H) 11/06/2018 TRIGLYCERIDE 236 (H) 05/21/2018 TRIGLYCERIDE 175 (H) 01/30/2018 Lab Results Component Value Date HDL 35 (L) 11/06/2018 HDL 32 (L) 05/21/2018 HDL 37 (L) 01/30/2018 Lab Results Component Value Date LDLCALC 143 (H) 11/06/2018 LDLCALC 115 (H) 05/21/2018 LDLCALC 115 (H) 01/30/2018 Lab Results Component Value Date NONHDLCHOL 178 (H) 11/06/2018 NONHDLCHOL 162 (H) 05/21/2018 NONHDLCHOL 150 (H) 01/30/2018 DM: Lab Results Component Value Date HGBA1C 6.0 07/09/2017 Lab Results Component Value Date ESTAVEGLU 126 07/09/2017 Thyroid: Lab Results Component Value Date TSH 1.68 08/10/2020 TSH 1.56 05/28/2019 TSH 2.82 02/02/2019 Lab Results Component Value Date T4FREE 1.24 05/28/2019 T4FREE 1.51 02/02/2019 T4FREE 1.48 11/13/2018 Lab Results Component Value Date T4 8.4 11/13/2018 Lab Results Component Value Date T3 111 11/13/2018 No results found for: THROIDAB Cardiac: Lab Results Component Value Date TROPONIN <0.02 06/05/2017 No results found for: CKTOTALREF No results found for: CKMB No results found for: BNP Other Results: Results for orders placed or performed in visit on 06/10/17 EKG 12-LEAD Narrative Stationary ECG Study [address] [address] Test Date: 06/10/2017 9:14 AM Pat Name: CARMEN LIMON Department: 14 Room: 35 Gender: Female 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 In the past patient has had an event monitor in 2019 where all hersymptoms were associated with sinus rhythm. The patient complains ofatypical sharp chest pain, shortness of breath with mild to moderatelevels of exertion. Denies any presyncope or syncope. Has multipleatypical noncardiac symptoms which will be deferred to PCP for furtherevaluation. For cardiac evaluation recommend treadmill stressechocardiogram. I explained the entire procedures, alternatives in detailwith all the risk and benefit involved. I also explained that if any ofthe testing were to come abnormal patient may need furtherinvasive/noninvasive testing including coronary angiography plus minus PCIversus cardiac CTA versus other modalities. I explained the procedure indetail as well as with all the risk and benefit involved and the patientis agreeable to move forward with the plan. Evaluation, management and appropriate referrals for noncardiac etiologiespotentially contributing to patient's presentation will be deferred topatient's PCP. I had an extensive discussion with the patient regardingfurther course of action, necessary testing, emergency precautions andpatient is agreeable with the same. Anti-Lipid therapies: Will request PCP clinic to help recheck lipid paneland further titrate per guideline directed medical therapy. In addition we will continue with, Aggressive risk factor modification and lifestyle changes. Continue with current guideline directed maximally tolerated aggressivemedical therapy. Current Outpatient Medications Medication traMADol (ULTRAM) 50 mg tablet clindamycin phosphate (CLEOCIN) 1 % Solution chlorzoxazone (PARAFON FORTE) 500 mg tablet metoprolol tartrate (LOPRESSOR) 25 mg tablet cetirizine (ZyrTEC) 10 mg tablet pantoprazole (PROTONIX) 40 mg Tablet, Delayed Release (E.C.) EPINEPHrine (EPIPEN) 0.3 mg/0.3 mL Auto-Injector No current facility-administered medications for this visit. Additionally, Keep a blood pressure log and bring it to the next PCP appointment wherefurther titration of blood pressure medications will be performed. Continue to follow with PCP/ other specialists for appropriate managementand treatment of chronic issues. Will request PCP to continue evaluationand workup of noncardiac etiologies contributing to patient's symptoms asdescribed above. Will request the staff/RN to refill all current cardiovascular medicationsand help placing & reviewing orders as discussed above in the plan. Willalso request the assisting staff/RN to go over the plan and education withpatient again. The risks, benefits and alternative of the above management were discussedwith patient and/or family. All questions were answered and with shareddecision making model, above management options are being implemented.Further management based on follow-up. No orders of the defined types were placed in this encounter. I performed a history and physical examination of the patient. I had anextensive discussion with patient (and/or family member and/orsurrogate/POA) about the options of medications, invasive and noninvasiveprocedures as recommended by current guidelines. Patient (and/or familymember and/or surrogate/POA) verbalized understanding of assessment andwillingness to implement the plan as described after understanding therisks and benefits of each. I had extensive discussion with the patientregarding emergency precautions and explained that patient should call 911or go to the nearest ER if any of the symptoms were torecur/progress/worsen including chest pain, shortness of breath alteredmental status, presyncopal or syncopal episodes, palpitations or any otheracute issues patient is agreeable with the same. Portions of this document were created through the use of Happy Cosastranscription software. Effort has been made to ensure accuracy of thetranscription. Any obvious errors or omissions should be clarified withthe author of the document. Dayana Harris MD us Dayana Harris MD ECG ORDERABLES Final Result [facility] [id number] [address] [facility] [address] [place] [address], * OLINDA SCREEN W/REFLEX (09/03/2024 2:21 PM CDT) OLINDA SCREEN NEGATIVE NEGATIVE [facility] Comment: OLINDA IFA is a first line screen for detecting the presence of up to approximately 150 autoantibodies in various autoimmune diseases. A negative OLINDA IFA result suggests an OLINDA-associated autoimmune disease is not present at this time, and does not reflex further. If there is high clinical suspicion for Sjogren's syndrome, testing for anti-SS-A/Ro antibody should be considered. Anti-Katelynn-1 antibody should be considered for clinically suspected inflammatory myopathies. AC-0: Negative International Consensus on OLINDA Patterns (https://doi.org/10.1515/twya-1759-4640) For additional information, please refer to http://education.Se[employer] CV/faq/APW367 (This link is being provided for informational/ educational purposes only.) Test Performed at: [facility] [address] [place] [address] Oanh Quintero MD Blood 09/03/2024 2:21 PM CDT 09/04/2024 2:58 AM CDT Mae Villarreal [facility] CHEMISTRY ORDERABLES Fin al Result Performing Organization Address City/[facility]/ZIP Co de Phone Number [facility] [phone] [facility] [address] [place] [address] * COMPREHENSIVE METABOLIC PANEL (08/16/2024 4:08 PM CDT) Blood Abstract Provider CHEMISTRY ORDERABLES Final Res ult * HEMOGLOBIN A1C (07/09/2017 3:15 PM CDT) HEMOGLOBIN A1C 6.0 4.0 - 6.0 % 07/10/2017 11:47 AM CDT [facility] [employer] [facility] EST. AVG GLUCOSE, A1C 126 mg/dL 07/10/2017 11:47 AM CDT [facility] [employer] [facility] Blood Venipuncture / Unknown 07/09/2017 3:15 PM CDT 07/09/2017 4:56 PM CDT Narrative [facility] [employer] [facility] - 07/10/2017 11:47 AM CDT Test performed on [employer] instrumentation using HPLC methodology Mae RODRIGUEZP CHEMISTRY ORDERABLES Fin al Result [facility] CLIA# [id number] [address] [place] [address] [facility] [employer] [facility] CLIA # [id number] [address] [facility] [place] [address] from Last 3 Months or Most Recently Relevant to Health Maintenance Insurance [facility] DUAL COMPLETE HMO [facility] [id number] * Guarantor: CARMEN LIMON Account Type Relation to Patient Date of Phone Billing Address Personal/Family [address] [place] [address] RX INFOCROSSING Medicaid RX [employer] RX Member Subscriber Plan / Payer (Ef fective 2016-Present) Name:Carmen Limon Relation to Subscriber:Self Name:Carmen Limon Payer ID:Not on file Group ID:[id number] Type:RX Medicare Part D Address: [address] Care Teams Chartered Financial Analyst Relationship Specialty Start Date End Date Marck Rhodes MD [address] [address] PCP - General Family Practice 08/20/24
--- OUTSIDE RECORDS SUMMARY | 2024-10-26 12:02 | XMS_ITS | Encounter Summary ---
Author Organization [facility] Address [address] [place] [address] Care Team Providers Care Merchandiser Seasonal Name Role Phone Jojo Eubanks DO Primary Care Provider Encounter Details Date Type Department Care Team (Late st Contact Info) Description 11/15/2004 Outpatient Historical [facility] Operating Room [address] [place] [address] Fran Orellana MD [address] [address] Social History Tobacco Use Types Packs/Day Years Used Date Smoking Tobacco: Never Assessed Comments Unknown Sex and Gender Information Value Date Recorded Sex Assigned at Not on file 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
--- OUTSIDE RECORDS SUMMARY | 2024-10-26 12:02 | XMS_ITS | Encounter Summary ---
Author Organization [facility] Address [address] [place] [address] Care Team Providers Care Monogram Maker Name Role Phone Jojo Eubanks Kate BARRERA Primary Care Provider [phone] Reason for Referral * Outpatient Services (Routine) - Closed Specialty Diagnoses / Procedures Referred By John t Referred To Contact Diagnoses Subclavian vein occlusion with collaterals Thoracic outlet syndrome Procedures US DOPPLER VENOUS ARM RIGHT US DUPLEX ARTERIAL ARM RIGHT Corwin Florian MD Phone: tel: fax: [facility] Pre-Registration [place] CALL TO MAKE APPOINTMENT ONLY [address] [place] [address] Phone: tel: fax: Referral ID Status Reason Start Date Expiration Date Visits Re quested Visits Authorized [id number] Closed 08/20/2017 09/20/2018 1 1 Encounter Details Date Type Department Care Team (Late st Contact Info) Description 08/20/2017 Ancillary Orders [facility] Cardiac Thoracic Vascular Surg [place] [address] [place] [address] Corwin Florian MD [address] [place] [address] [place] [address] 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; Thoracic outlet syndrome Social History Tobacco Use Types Packs/Day Years Used Date Smoking Tobacco: Former Cigarettes 0.5 10 0 06/11/2001 - 06/11/2011 Smokeless Tobacco: Never Alcohol Use Standard Drinks/Week Comments No 0 (1 standard drink = 0.6 oz pur e alcohol) Comments No Sex and Gender Information Value Date Recorded Sex Assigned at Not on file 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 Gender Identity Not on file Sexual Orientation Not on file Occupation Industry Job Start Date Job End Date Not on file Not on file Not on file Not on file documented as of this encounter Plan of Treatment Not on file documented as of this encounter Results * US DOPPLER VENOUS ARM RIGHT (08/20/2017 1:35 PM CDT) Anatomical Region Laterality Modality Upper Extremity Ultrasound 08/20/2017 1:15 PM CDT Narrative 08/28/2017 10:44 AM CDT [facility] [address] [place] [address] [place] [id number] Noninvasive Vascular Lab Venous Exam Limited Upper Extremity Duplex Patient: Carmen Stevenson Study ID: US DOPPLER VENOU Gender: F : 1980 Age: 36 Room: Height: Weight: BSA: Pt status: Outpatient Study Date: 08/20/2017 Study Time: 01:15:04 PM BSA: Ordering: Corwin Florian Interpreting:James Vincent MD, RPVI Indications: Subclavian vein occlusion with collaterals- right. Thoracic outlet syndrome. Summary Impression: 1. Study demonstrates chronic venous obstruction in the right subclavian vein with recanalization and collateralization post thoracic outlet surgery. There are no further areas of deep vein thrombosis or superficial venous thrombophlebitis in the right upper extremity. 2. Incidental: Arterial waveforms are obtained and there is no evidence of arterial insufficiency in the right upper extremity. Study data: Right upper extremity venous duplex. Doppler flow study including spectral analysis, color and gaytan scale imaging. Ethnicity: Ethnicity: white. Location: Vascular laboratory. Patient status: Outpatient. Study status: Routine. Procedure: A vascular evaluation was performed. Image quality was good. Exam quality was good. Venous flow and imaging: - Right internal jugular - Normal phasicity; spontaneous; compressible - Right subclavian - Diminished phasicity; spontaneous; partially compressible; diminished augmentation Chronic thombus - Right axillary - Normal phasicity; spontaneous; compressible; normal augmentation - Right brachial - Normal phasicity; spontaneous; compressible; normal augmentation - Right cephalic - Normal phasicity; spontaneous; compressible; normal augmentation - Right basilic - Normal phasicity; spontaneous; compressible; normal augmentation - Right radial - Compressible - Right ulnar - Compressible - Left internal jugular - Normal phasicity; spontaneous; compressible [facility] is accredited with the Intersocietal Commission for the Accreditation of Vascular Laboratories (ICAVL) Prepared and Electronically Authenticated James Vincent MD, RPVI Confirmed 08/28/2017 10:44 Procedure Note James Vincent MD - 08/28/2017 [facility] [address] [place] [address] [place] [id number] Noninvasive Vascular Lab Venous Exam Limited Upper Extremity Duplex Patient: Carmen Steevnson Study ID: US DOPPLER VENOU Gender: F : 1980 Age: 36 Room: Height: Weight: BSA: Pt status: Outpatient Study Date: 08/20/2017 Study Time: 01:15:04 PM BSA: Ordering: Corwin Florian Interpreting:James Vincent MD, RPVI Indications: Subclavian vein occlusion with collaterals- right. Thoracic outlet syndrome. Summary Impression: 1. Study demonstrates chronic venous obstruction in the right subclavian vein with recanalization and collateralization post thoracic outlet surgery. There are no further areas of deep vein thrombosis or superficial venous thrombophlebitis in the right upper extremity. 2. Incidental: Arterial waveforms are obtained and there is no evidence of arterial insufficiency in the right upper extremity. Study data: Right upper extremity venous duplex. Doppler flow study including spectral analysis, color and gaytan scale imaging. Ethnicity: Ethnicity: white. Location: Vascular laboratory. Patient status: Outpatient. Study status: Routine. Procedure: A vascular evaluation was performed. Image quality was good. Exam quality was good. Venous flow and imaging: - Right internal jugular - Normal phasicity; spontaneous; compressible - Right subclavian - Diminished phasicity; spontaneous; partially compressible; diminished augmentation Chronic thombus - Right axillary - Normal phasicity; spontaneous; compressible; normal augmentation - Right brachial - Normal phasicity; spontaneous; compressible; normal augmentation - Right cephalic - Normal phasicity; spontaneous; compressible; normal augmentation - Right basilic - Normal phasicity; spontaneous; compressible; normal augmentation - Right radial - Compressible - Right ulnar - Compressible - Left internal jugular - Normal phasicity; spontaneous; compressible [facility] is accredited with the Intersocietal Commission for the Accreditation of Vascular Laboratories (ICAVL) Prepared and Electronically Authenticated James Vincent MD, RPVI Confirmed 08/28/2017 10:44 us Corwin Florian MD US ORDERABLES Final Result documented in this encounter Visit Diagnoses Diagnosis 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
--- OUTSIDE RECORDS SUMMARY | 2024-10-26 12:02 | XMS_ITS | Encounter Summary ---
Author Organization [facility] Address [address] [place] [address] Care Team Providers Care Granite Cutter Name Role Phone Jojo Eubanks DO Primary Care Provider Encounter Details Date Type Department Care Team (Late st Contact Info) Description 09/27/2015 Ancillary Orders [facility] Oral and Maxillo Surgery[address] [place] [address] Nicho Hung Jr., DMD NO ADDRESS ON FILE Disturbance, tooth, eruption (Primary Dx) Social History Tobacco Use Types Packs/Day Years Used Date Smoking Tobacco: Former Cigarettes 2 15 0 06/11/1996 - 06/11/2011 Smokeless Tobacco: Never Alcohol Use Standard Drinks/Week Comments Yes 0 (1 standard drink = 0.6 oz pur e alcohol) rarely Comments No Sex and Gender Information Value Date Recorded Sex Assigned at Not on file 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 Gender Identity Not on file Sexual Orientation Not on file Occupation Industry Job Start Date Job End Date Not on file Not on file Not on file Not on file documented as of this encounter Plan of Treatment Not on file documented as of this encounter Results * XR PANOREX (09/27/2015 10:44 AM CDT) Anatomical Region Laterality Modality Head Computed Radiogr aphy Narrative 10/08/2015 7:33 PM CDT Fractured and decayed dentition Chronic periodontal disease us Nicho Hung Jr., DMD DIAGNOSTIC IMAGING ORDERABLES Final Result documented in this encounter Visit Diagnoses Diagnosis Disturbance, tooth, eruption- Primary Disturbances in tooth eruption documented in this encounter Care Teams Granite Cutter Relationship Specialty Start Date End Date Jojo Eubanks DO [address] [place] [address] PCP - General Family Practice 06/11/17 documented as of this encounter
--- OUTSIDE RECORDS SUMMARY | 2024-10-26 12:02 | XMS_ITS | Encounter Summary ---
Author Organization [facility] Address [address] [place] [address] Care Team Providers Care Litigation Coordinator Name Role Phone Jojo Eubanks DO Primary Care Provider Encounter Details Date Type Department Care Team (Late st Contact Info) Description 11/05/2004 Inpatient Historical HIS IN BED Fran Orellana MD [address] [id number] CALCULUS OF URETER (Primary Dx) Social History Tobacco Use Types Packs/Day Years Used Date Smoking Tobacco: Never Assessed Comments Unknown Sex and Gender Information Value Date Recorded Sex Assigned at Not on file Legal Sex Female 3:45 AM [employer] Gender Identity Not on file Sexual Orientation Not on file documented as of this encounter Plan of Treatment Not on file documented as of this encounter Procedures Procedure Name Priority Date/Time Associated Diagnosis Comments CBC WITH DIFFERENTIAL Routine 11/05/2004 9:00 PM CDT COMPREHENSIVE METABOLIC PANEL Routine 11/05/2004 9:00 PM CDT URINALYSIS MICROSCOPY ONLY Routine 11/05/2004 8:54 PM CDT URINALYSIS W/REFLEX MICROSCOPIC Routine 11/05/2004 8:54 PM CDT documented in this encounter Results * (ABNORMAL) COMPREHENSIVE METABOLIC PANEL (11/05/2004 9:00 PM CDT) GLUCOSE 93 70 - 110 mg/dL INTERFACE SYSTEM BUN 15 7 - 17 mg/dL INTERFACE SYSTEM CREATININE 1.9(H) 0.7 - 1.2 mg/dL INTERFACE SYSTEM SODIUM 140 136 - 145 mEq/L INTERFACE SYSTEM POTASSIUM 3.1(L) 3.5 - 5.0 mEq/L INTERFACE SYSTEM CO2 23 22 - 32 mmol/l INTERFACE SYSTEM CHLORIDE 104 95 - 110 mEq/L INTERFACE SYSTEM CALCIUM 8.8 8.4 - 10.5 mg/dL INTERFACE SYSTEM ALKALINE PHOSPHATASE 86 38 - 126 IU/L INTERFACE SYSTEM TOTAL PROTEIN 7.6 6.3 - 8.2 g/dL INTERFACE SYSTEM ALBUMIN 3.8 3.5 - 5.0 g/dL INTERFACE SYSTEM AST 16 14 - 36 IU/L INTERFACE SYSTEM ALT 14 9 - 52 IU/L INTERFACE SYSTEM BILIRUBIN TOTAL 0.3 0.2 - 1.4 mg/dL INTERFACE SYSTEM GLOBULIN (CALC) 3.8 2.4 - 3.9 g/dL INTERFACE SYSTEM ANION GAP 16 9 - 20 mEq/L INTERFACE SYSTEM ALBUMIN/GLOBULIN RATIO 1.0 1.0 - 2.3 INTERFACE SYSTEM OSMOLALITY, CALCULATED 287 275 - 295 mOsm/Kg INTERFACE SYSTEM 11/05/2004 9:00 PM CDT us Fran Orellana Jr., MD CHEMISTRY ORDERABLES Fi nal Result INTERFACE SYSTEM Refer to clinic/hospital department * (ABNORMAL) CBC WITH DIFFERENTIAL (11/05/2004 9:00 PM CDT) Pathologist [facility] WBC 12.2(H) 4.5 - 11.0 K/ul INTERFACE SYSTEM RBC 4.14(L) 4.20 - 5.40 Mil/ul INTERFACE SYSTEM HEMOGLOBIN 12.6 12.0 - 16.0 g/dL INTERFACE SYSTEM HEMATOCRIT 37.4 36.0 - 46.0 % INTERFACE SYSTEM MCV 90.3 84.0 - 103.0 Fl INTERFACE SYSTEM MCH 30.4 27.0 - 34.0 pg INTERFACE SYSTEM MCHC 33.7 30.0 - 35.0 g/dL INTERFACE SYSTEM RDW 13.9 11.0 - 14.5 % INTERFACE SYSTEM PLATELETS 173 140 - 440 K/ul INTERFACE SYSTEM MPV 9.6 8.9 - 12.8 Fl INTERFACE SYSTEM NEUTROPHILS 66.5 42.2 - 75.2 % INTERFACE SYSTEM LYMPHOCYTES 25.7 24.0 - 44.0 % INTERFACE SYSTEM MONOCYTES 6.6 2.0 - 10.0 % INTERFACE SYSTEM EOSINOPHILS 1.0 0.0 - 7.0 % INTERFACE SYSTEM BASOPHILS 0.2 0.0 - 1.0 % INTERFACE SYSTEM NEUTROPHIL ABSOLUTE 8.1(H) 2.0 - 8.0 K/uL INTERFACE SYSTEM LYMPHOCYTE ABSOLUTE 3.1 1.2 - 4.0 K/ul INTERFACE SYSTEM MONOCYTE ABSOLUTE 0.8(H) 0.1 - 0.6 K/ul INTERFACE SYSTEM EOSINOPHIL ABSOLUTE 0.1 0.0 - 0.7 K/ul INTERFACE SYSTEM BASOPHILS ABSOLUTE 0.0 0.0 - 0.2 K/ul INTERFACE SYSTEM 11/05/2004 9:00 PM CDT Fran Orellana Jr., MD HEMATOLOGY ORDERABLES F inal Result Performing Organization Address [facility] de Phone Number INTERFACE SYSTEM Refer to clinic/hospital department * (ABNORMAL) URINALYSIS (11/05/2004 8:54 PM CDT) COLOR UA Yellow Straw INTERFACE SYSTEM CLARITY UA SL CLOUDY Clear INTERFACE SYSTEM LEUKOCYTE ESTERASE UA Small(A) NEGATIVE INTERFACE SYSTEM NITRITE UA NEGATIVE NEGATIVE INTERFACE SYSTEM PH UA 6.5 5.0 - 9.0 INTERFACE SYSTEM PROTEIN UA Trace(A) NEGATIVE INTERFACE SYSTEM Comment: As of 04 positive protein results obtained on routine urinalysis will not be confirmed by sulfosalicylic acid (SSA) precipitation. Current methodology for protein detection is highly sensitive for detection of albumin; therefore, confirmation is not necessary. GLUCOSE UA NEGATIVE NEGATIVE INTERFACE SYSTEM KETONES UA NEGATIVE NEGATIVE INTERFACE SYSTEM UROBILINOGEN UA 0.2 INTE RFACE SYSTEM BILIRUBIN UA NEGATIVE NEGATIVE INTERFA CE SYSTEM BLOOD UA Large(A) NEGATIVE INTERFACE SYSTEM SPECIFIC GRAVITY UA 1.025 1.005 - 1.030 INTERFACE SYSTEM MICRO EXAM Yes(A) No INTERFACE SYSTEM 11/05/2004 8:54 PM CDT Fran Orellana Jr., MD URINE ORDERABLES Final Result Performing Organization Address [facility]/ZIP Co de Phone Number INTERFACE SYSTEM Refer to clinic/hospital department * (ABNORMAL) URINALYSIS MICROSCOPY ONLY (11/05/2004 8:54 PM CDT) WBC URINE 3-5(A) 0 - 2 INTERFACE SYSTEM RBC UA 26-40(A) 0 - 2 INTERFACE SYSTEM HYALINE CAST None Seen 0 - 2 INTERFA CE SYSTEM BACTERIA UA Many(A) None Seen INTERFAC E SYSTEM 11/05/2004 8:54 PM CDT us Fran Orellana Jr., MD URINE ORDERABLES Final Result Performing Organization Address [facility] Co de Phone Number INTERFACE SYSTEM Refer to clinic/hospital department documented in this encounter Visit Diagnoses Diagnosis Calculus of ureter- Primary documented in this encounter Care Teams Litigation Coordinator Relationship Specialty Start Date End Date Jojo Eubanks DO [address] [place] [address] PCP - General Family Practice 06/11/17 documented as of this encounter
--- OUTSIDE RECORDS SUMMARY | 2024-10-26 12:02 | XMS_ITS | Encounter Summary ---
Author Organization [facility] Address [address] [place] [address] Care Team Providers Care Crime Data Specialist Name Role Phone RaimundoJojo hunt Kate BARRERA Primary Care Provider [phone] Reason for Referral * Outpatient Services (Urgent) - Closed Specialty Diagnoses / Procedures Referred By Chrisac t Referred To Contact Radiology Diagnoses Subclavian vein occlusion with collaterals Procedures IR VENOUS UPR EXT Erma Duffy NP Phone: tel: fax: [facility] Interventional Radiology [address] [place] [address] Phone: tel: fax: Referral ID Status Reason Start Date Expiration Date Visits Re quested Visits Authorized [id number] Closed 06/20/2017 07/21/2018 1 1 RIAL CLERK Encounter Details Date Type Department Care Team (Latest Contact Info) Description 06/20/2017 Ancillary Orders [facility] Interventional Radiology [address] [place] [address] Erma Duffy NP [address] [place] [id number] Subclavian vein occlusion with collaterals Social History Tobacco Use Types Packs/Day Years Used Date Smoking Tobacco: Former Cigarettes 0.5 10 0 06/11/2001 - 06/11/2011 Smokeless Tobacco: Never Alcohol Use Standard Drinks/Week Comments No 0 (1 standard drink = 0.6 oz pur e alcohol) Comments No Sex and Gender Information Value Date Recorded Sex Assigned at Not on file Legal Sex Female 3:45 AM MATERIAL CLERK Gender Identity Not on file Sexual Orientation Not on file Occupation Industry Job Start Date Job End Date Not on file Not on file Not on file Not on file documented as of this encounter Plan of Treatment Not on file documented as of this encounter Results * IR VENOUS UPR EXT (06/20/2017 1:11 PM MATERIAL CLERK) Anatomical Region Laterality Modality Upper Extremity X-Ray Angiograph y 06/20/2017 1:13 PM MATERIAL CLERK Narrative 06/20/2017 7:18 PM MATERIAL CLERK Exam: IR VENOUS UPR EXT Date/Time of Exam: 06/20/2017 1:11 PM Reason For Exam: Subclavian vein occlusion with collaterals,,Comment: 27mGy 840.13DAP. The examination was supervised and diagnosed by Dr. Langston prior to the time of dictation. Request submitted for right upper extremity venogram for possible thoracic outlet syndrome and/or subsequent venous occlusion. An IV was placed at the right AC space by the radiology nurse. Isovue-300 was injected with the arm both at the patient's side and elevated over her head. There is significant right upper extremity collateralization on all images. Scattered thrombus is seen within the basilic vein, collateral veins, and the subclavian vein. The right subclavian vein is partially thrombosed. Superior vena cava is patent and normal in caliber. No subclavian venous patency appreciated at the costoclavicular space with the arm elevated or by her side. IMPRESSION Occlusion of the subclavian vein on abduction of the arm and scattered thrombus in the basilic and subclavian veins consistent with the diagnosis of thoracic outlet syndrome. Procedure Note Chava Langston MD - 06/20/2017 Exam: IR VENOUS UPR EXT Date/Time of Exam: 06/20/2017 1:11 PM Reason For Exam: Subclavian vein occlusion with collaterals,,Comment: 27mGy 840.13DAP. The examination was supervised and diagnosed by Dr. Langston prior to the time of dictation. Request submitted for right upper extremity venogram for possible thoracic outlet syndrome and/or subsequent venous occlusion. An IV was placed at the right AC space by the radiology nurse. Isovue-300 was injected with the arm both at the patient's side and elevated over her head. There is significant right upper extremity collateralization on all images. Scattered thrombus is seen within the basilic vein, collateral veins, and the subclavian vein. The right subclavian vein is partially thrombosed. Superior vena cava is patent and normal in caliber. No subclavian venous patency appreciated at the costoclavicular space with the arm elevated or by her side. IMPRESSION Occlusion of the subclavian vein on abduction of the arm and scattered thrombus in the basilic and subclavian veins consistent with the diagnosis of thoracic outlet syndrome. us Erma Duffy NP IR ORDERABLES Final Resul t documented in this encounter Visit Diagnoses Diagnosis Subclavian vein occlusion with collaterals Acute venous embolism and thrombosis of subclavian veins Subclavian vein occlusion with collaterals Acute venous embolism and thrombosis of subclavian veins documented in this encounter Care Teams Crime Data Specialist Relationship Specialty Start Date End Date Jojo Eubanks DO [address] [place] [address] PCP - General Family Practice 06/11/17 documented as of this encounter
--- OUTSIDE RECORDS SUMMARY | 2024-10-26 12:02 | XMS_ITS | Patient Health Record ---
Author Organization [email or web address] Address [address] [place], [place] [id number] Care Team Providers Care Dry Molder Name Role Phone Celena RAI, Parveen Unavailable [phone] Gwyn RAI, Laurence Unavailable Unavailable Reason For Referral No Information Plan Of Treatment No Information Insurance Providers Payer Name Payer Address Payer Phone Subscriber Number Group Number Insured Name Patient Relationship to Insured Coverage Start Date Coverage End Date [employer] Medicare Part B Claims Department [address] [address] [place] [address] [id number] Carmen Stevenson Self - patient is the insured [place] [address] [place] [address] [phone] [id number] Carmen Stevenson Self - patient is the insured
[2024-10-26 12:04] LABS: Alanine Aminotransferase 33 U/L (0-33); Albumin Level 4.5 g/dL (3.5-5.2); Alkaline Phosphatase 71 U/L (35-105); Anion Gap 17.7 (5-19); Aspartate Amino Transferase 20 U/L (0-32); Blood Urea Nitrogen 8 mg/dL (6-20); Calcium 9.0 mg/dL (8.5-10.5); Carbon Dioxide 24 mmol/L (22-29); Chloride 100 mmol/L (98-107); Creatinine Clr Calc Pharmacy 60.7562; Globulin 2.4 g/dL (1.3-4.6); Glucose 117 mg/dL (65-115); Lipase 48 U/L (13-60); Osmolality Calculated 285 mOsm/kg (285-295); Potassium 3.7 mmol/L (3.5-5.1); Sodium 138 mmol/L (136-145); Thyroid Stimulating Hormone 1.89 uIU/mL (0.27-4.20); Total Protein 6.9 g/dL (6.6-8.7)
[2024-10-26 12:30] VITALS: PULSE 77; O2SAT 97
== END 2024-10-26 12:31 | disposition home or self-care (01) ==
PROVIDERS: Emergency Provider Emergency Medicine; PCP Family Medicine
DX: T78.1XXA Other adverse food reactions, not elsewhere classified, initial encounter (principal); X58.XXXA Exposure to other specified factors, initial encounter; Z87.891 Personal history of nicotine dependence; J44.9 Chronic obstructive pulmonary disease, unspecified; I12.9 Hypertensive chronic kidney disease with stage 1 through stage 4 chronic kidney disease, or unspecified chronic kidney disease; N18.2 Chronic kidney disease, stage 2 (mild)
CPT/HCPCS: 70450; 80053; 83690; 84443; 84484; 84703; 85025; 93005; 99284; J7030